=== PATIENT | female | born 1935 | race Caucasian/White ===

== ENCOUNTER 2021-04-04 06:21 | Observation (INO) | payer MEDICARE ==
[2021-03-29 13:33] LABS: BASOPHILS % (AUTO) 0.9 % (0.0-5.0); EOSINOPHILS % (AUTO) 5.5 % (0.0-8.0); HEMATOCRIT 32.2 % (36-48); LYMPHOCYTES % (AUTO) 24.4 % (21.0-51.0); MEAN CORPUSCULAR HEMOGLOBIN 28.2 pg (27.0-33.0); MEAN CORPUSCULAR HGB CONC 31.1 g/dL (32.0-36.0); MONOCYTES % (AUTO) 11.8 % (3.0-13.0); PLATELET COUNT (AUTO) 411 K/uL (130-400); RED BLOOD CELL COUNT(AUTO) 3.54 MIL/uL (4.00-5.50); RED CELL DISTRIBUTION WIDTH 15.1 % (11.0-15.5); WHITE BLOOD COUNT (AUTO) 6.9 K/uL (4.8-10.8)
[2021-03-29 13:42] LABS: CREATININE 0.6 mg/dL (0.5-1.5); POTASSIUM 4.4 mmol/L (3.5-5.1)
[2021-03-29 14:08] LABS: INR 1.04 (0.85-1.15); PROTHROMBIN TIME 11.3 SEC (9.6-11.6)
[2021-03-29 14:09] LABS: PARTIAL THROMBOPLASTIN TIME 28.9 SEC (26.3-35.5)
[2021-04-03 09:12] VITALS: BP 183/68
[2021-04-04] VITALS (24 sets, daily range): BP systolic 111–164; BP diastolic 40–94
[~2021-04-04] VITALS: Ht 158.8 cm; Wt 74.8 kg
[2021-04-04] MEDS: CEFAZOLIN SODIUM 1 GM VIAL IVP SCH ×3 (06:00→16:35)
[~2021-04-04 06:21] MED LIST: ATOR40TA71 PO; GABA-529 PO; HYDR12.54 PO; ROPIVICAINE 250MG+KETOROLAC 15MG+EPINEPHRINE 0.3+CLONIDINE 80 IV PRN
[2021-04-04] MEDS ORDERED: TRANEXAMIC ACID 1000MG/10ML ONE (06:51)
[2021-04-04] MEDS ORDERED: AEC81 PO (07:45)
[2021-04-04] MEDS: LACTATED RINGERS 1000ML 1,000 ML IV SCH ×6 (07:47→13:55)
[2021-04-04] MEDS ORDERED: HYDROCODONE/ACETAMINOPHEN 5/325 MG TAB PO PRN (08:00)
[2021-04-04] MEDS ORDERED: MORPHINE 4 MG SYG IVP PRN (08:00)
[2021-04-04] MEDS ORDERED: OXYCODONE HCL 5 MG TAB PO PRN (08:00)
[2021-04-04] MEDS: ACETAMINOPHEN 500 MG TABLET PO SCH ×3 (08:00→16:36)
[2021-04-04] MEDS ORDERED: ONDANSETRON 4MG INJ IVP PRN (08:00)
[2021-04-04] MEDS: 0.9%NACL 1000ML 1,000 ML IV SCH ×2 (08:00→17:25)
[2021-04-04] MEDS ORDERED: MIDAZOLAM HCL 1 MG/ML 2ML VIAL ONE ×2 (08:01→08:42)
[2021-04-04] MEDS ORDERED: KETAMINE 50MG/ML SYRINGE 50 MG/ML DISP.SYRIN IV ONE (08:29)
[2021-04-04] MEDS ORDERED: EPHEDRINE SULFATE 50 MG/ML AMPULE ONE (08:36)
[2021-04-04] MEDS: FAMOTIDINE 20MG TAB PO SCH ×2 (09:00→22:01)
[2021-04-04] MEDS: ASPIRIN 81 MG EC TAB PO SCH ×2 (09:00→22:01)
[2021-04-04] MEDS: POLYETHYLENE GLYCOL 3350 17 GM POWD.PACK PO SCH (09:00)
[2021-04-04] MEDS: HYDROCHLOROTHIAZIDE 25 MG TABLET PO SCH (09:00)
[2021-04-04] MEDS ORDERED: VANCOMYCIN 1G VIAL ONE (09:08)
[2021-04-04] MEDS ORDERED: ROPIVACAINE 0.5% 5MG/ML 30ML IJ ONE (10:32)
[2021-04-04] MEDS ORDERED: CEFAZOLIN SODIUM 1 GM VIAL IVP SCH (13:00)
[2021-04-04] MEDS: TRAMADOL HCL 50 MG TABLET PO SCH ×2 (13:10→17:37)
[2021-04-04] MEDS: GABAPENTIN 100 MG CAPSULE PO SCH (22:01)
[2021-04-04] MEDS: BALSAM PERU/CASTOR OIL 60 GM TUBE TP SCH (22:09)
[2021-04-05] MEDS: ACETAMINOPHEN 500 MG TABLET PO SCH ×3 (00:15→17:17)
[2021-04-05] MEDS: TRAMADOL HCL 50 MG TABLET PO SCH ×4 (00:15→17:17)
[2021-04-05] MEDS: CEFAZOLIN SODIUM 1 GM VIAL IVP SCH (00:15)
[2021-04-05] MEDS: 0.9%NACL 1000ML 1,000 ML IV SCH (02:23)
[2021-04-05 04:11] VITALS: BP 119/49
[2021-04-05 05:10] LABS: HEMATOCRIT 24.9 % (36-48); MEAN CORPUSCULAR HEMOGLOBIN 28.4 pg (27.0-33.0); MEAN CORPUSCULAR HGB CONC 31.3 g/dL (32.0-36.0); MEAN CORPUSCULAR VOLUME 90.5 fL (79-99); RED BLOOD CELL COUNT(AUTO) 2.75 MIL/uL (4.00-5.50); WHITE BLOOD COUNT (AUTO) 8.1 K/uL (4.8-10.8)
[2021-04-05 05:27] LABS: CREATININE 0.7 mg/dL (0.5-1.5); POTASSIUM 3.6 mmol/L (3.5-5.1)
[2021-04-05 07:30] VITALS: BP 123/47
[2021-04-05 11:00] VITALS: BP 133/94
[2021-04-05] MEDS: FAMOTIDINE 20MG TAB PO SCH ×2 (11:04→22:22)
[2021-04-05] MEDS: BALSAM PERU/CASTOR OIL 60 GM TUBE TP SCH ×3 (11:05→22:23)
[2021-04-05] MEDS: ASPIRIN 81 MG EC TAB PO SCH ×2 (11:05→22:22)
[2021-04-05] MEDS: POLYETHYLENE GLYCOL 3350 17 GM POWD.PACK PO SCH (11:05)
[2021-04-05] MEDS: HYDROCHLOROTHIAZIDE 25 MG TABLET PO SCH (11:41)
[2021-04-05 16:00] VITALS: BP 133/36
[2021-04-05 20:27] VITALS: BP 118/49
[2021-04-05] MEDS: GABAPENTIN 100 MG CAPSULE PO SCH (22:22)
[2021-04-06 00:02] VITALS: BP 133/46
[2021-04-06] MEDS: TRAMADOL HCL 50 MG TABLET PO SCH ×4 (00:19→10:49)
[2021-04-06 04:32] VITALS: BP 144/45
[2021-04-06 07:30] VITALS: BP 145/30
[2021-04-06] MEDS: ASPIRIN 81 MG EC TAB PO SCH (10:42)
[2021-04-06] MEDS: HYDROCHLOROTHIAZIDE 25 MG TABLET PO SCH (10:42)
[2021-04-06] MEDS: FAMOTIDINE 20MG TAB PO SCH (10:42)
[2021-04-06] MEDS: POLYETHYLENE GLYCOL 3350 17 GM POWD.PACK PO SCH (10:46)
[2021-04-06] MEDS: ACETAMINOPHEN 500 MG TABLET PO SCH ×3 (10:47→16:54)
[2021-04-06] MEDS: BALSAM PERU/CASTOR OIL 60 GM TUBE TP SCH ×2 (10:48→14:32)
[2021-04-06 11:00] VITALS: BP 118/33
[2021-04-07] MEDS ORDERED: BISACODYL 10 MG SUPP.RECT RC PRN (08:00)
== END 2021-04-06 17:30 | disposition home health service (06) ==
LOC: DAH 06:21 → DAHIP 06:22 → DAH 06:22 → INTOOBSV 06:22 → 3AH 12:02
PROVIDERS: ADMIT Orthopaedic Surgery; ATTEND Orthopaedic Surgery
DX: M16.12 Unilateral primary osteoarthritis, left hip (principal); Z20.822 Contact with and (suspected) exposure to COVID-19; L89.152 Pressure ulcer of sacral region, stage 2; I10 Essential (primary) hypertension; R32 Unspecified urinary incontinence; Z79.82 Long term (current) use of aspirin
CPT/HCPCS: 27130; 36415 ×2; 64447; 71045; 72170; 76942; 80048 ×2; 85025; 85027; 85610; 85730; 87070; 87076; 87205; 87635; 87641; 88304; 88311; 93005; 96361 ×3; 96374; 96375; 96376; 97039 ×3; 97116 ×4; 97161; 97530 ×3; A4215; A4221; A4222; A4606; A4649 ×5; A4663; A4930; A6212; C1776; C9803; G0378 ×3; J0171; J0690 ×3; J0735; J1885; J2250 ×2; J2270; J2405; J2795 ×2; J3370; J3490 ×3; J7030; J7120

== ENCOUNTER 2022-05-08 06:52 | Observation (INO) | payer MEDICARE ==
[2022-05-04 13:18] LABS: BASOPHILS % (AUTO) 0.6 % (0.0-5.0); EOSINOPHILS % (AUTO) 3.1 % (0.0-8.0); HEMATOCRIT 36.2 % (36-48); MEAN CORPUSCULAR HEMOGLOBIN 29.5 pg (27.0-33.0); MEAN CORPUSCULAR HGB CONC 31.5 g/dL (32.0-36.0); MEAN CORPUSCULAR VOLUME 93.8 fL (79-99); NEUTROPHILS % (AUTO) 65.6 % (40.0-77.0); PLATELET COUNT (AUTO) 273 K/uL (130-400); RED BLOOD CELL COUNT(AUTO) 3.86 MIL/uL (4.00-5.50); RED CELL DISTRIBUTION WIDTH 14.9 % (11.0-15.5); WHITE BLOOD COUNT (AUTO) 8.1 K/uL (4.8-10.8)
[2022-05-04 13:37] LABS: INR 1.01 (0.85-1.15)
[2022-05-04 13:39] LABS: PARTIAL THROMBOPLASTIN TIME 31.8 SEC (26.3-35.5)
[2022-05-04 13:41] LABS: POTASSIUM 3.6 mmol/L (3.5-5.1)
[2022-05-04 13:42] LABS: ALBUMIN 3.3 g/dL (3.5-5.0); CREATININE 0.8 mg/dL (0.5-1.5)
[2022-05-07 10:58] VITALS: BP 216/70
[2022-05-08] VITALS (26 sets, daily range): BP systolic 101–188; BP diastolic 14–118
[~2022-05-08] VITALS: Ht 160 cm; Wt 77.1 kg
[2022-05-08] MEDS: TRANEXAMIC ACID 1000MG/10ML IJ SCH ×2 (06:00→09:29)
[2022-05-08] MEDS: CEFAZOLIN SODIUM 1 GM VIAL IVP SCH ×4 (06:00→23:46)
[~2022-05-08 06:52] MED LIST changes: -ATOR40TA71 PO; +FERR-72 PO; -GABA-529 PO; +IPRA3AMP24 IH; +ROPIVACAINE 0.5% 5MG/ML 30ML IJ ONE; -ROPIVICAINE 250MG+KETOROLAC 15MG+EPINEPHRINE 0.3+CLONIDINE 80 IV PRN; +TRANEXAMIC ACID 1000MG/10ML ONE
[2022-05-08] MEDS ORDERED: ROPIVACAINE 0.5% 5MG/ML 30ML IJ ONE (07:32)
[2022-05-08] MEDS: LACTATED RINGERS 1000ML 1,000 ML IV SCH ×3 (07:39→13:09)
[2022-05-08] MEDS ORDERED: FENTANYL CITRATE PF 50 MCG/1 ML 2ML VIAL ONE (08:04)
[2022-05-08] MEDS ORDERED: GLYCOPYRROLATE 1 MG/5 ML SYRINGE ONE (08:04)
[2022-05-08] MEDS ORDERED: PROPOFOL 10 MG/ML 20ML VIAL IV ONE (08:04)
[2022-05-08] MEDS ORDERED: ROCURONIUM 10MG/1ML SYR 10 MG/ML ML ONE ×2 (08:05→10:01)
[2022-05-08] MEDS ORDERED: LIDOCAINE PF 100MG/5ML (2%) SYRINGE 5ML ONE (08:05)
[2022-05-08] MEDS ORDERED: DEXAMETHASONE SOD PHOSPHATE 4 MG/ML 1ML VIAL ONE (08:27)
[2022-05-08] MEDS ORDERED: DEXAMETHASONE SOD PHOSPHATE 10MG/ML 1ML VIAL ONE ×2 (10:21→10:23)
[2022-05-08] MEDS ORDERED: KETOROLAC 30MG VIAL (30MG/ML) ONE ×2 (10:21→10:22)
[2022-05-08] MEDS ORDERED: ONDANSETRON 4MG INJ ONE (10:21)
[2022-05-08] MEDS ORDERED: KCL 20 MEQ ERTAB PO PRN (10:30)
[2022-05-08] MEDS ORDERED: ONDANSETRON 4MG INJ IVP PRN (10:30)
[2022-05-08] MEDS ORDERED: LIDOCAINE HCL-MPF 1% 2ML VIAL IV PRN (10:30)
[2022-05-08] MEDS ORDERED: IPRATROPIUM/ALBUTEROL SULFATE 3 ML SOLUTION IH PRN (10:30)
[2022-05-08] MEDS ORDERED: POTASSIUM CHLORIDE 20MEQ/100ML 100 ML IV PRN (10:30)
[2022-05-08] MEDS ORDERED: POTASSIUM CHLORIDE 10% ELIXIR 20 MEQ/15 ML UDCUP PO PRN (10:30)
[2022-05-08] MEDS ORDERED: FERROUS FUMARATE 324 MG TABLET PO PRN (10:30)
[2022-05-08] MEDS ORDERED: MORPHINE 4 MG SYG IVP PRN (10:30)
[2022-05-08] MEDS ORDERED: HYDROCODONE/ACETAMINOPHEN 5/325 MG TAB PO PRN (10:30)
[2022-05-08] MEDS: 0.9%NACL 1000ML 1,000 ML IV SCH ×2 (10:30→20:15)
[2022-05-08] MEDS ORDERED: HYDROCODONE/ACETAMINOPHEN 10/325 MG TAB PO PRN (10:30)
[2022-05-08] MEDS: ACETAMINOPHEN 500 MG TABLET PO SCH ×2 (10:30→19:03)
[2022-05-08] MEDS ORDERED: NEOSTIGMINE 5MG/5ML SYR IV ONE (11:21)
[2022-05-08] MEDS: TRAMADOL HCL 50 MG TABLET PO SCH ×3 (12:00→23:24)
[2022-05-08] MEDS ORDERED: HYDRALAZINE 20MG/ML VIAL ONE (12:38)
[2022-05-08] MEDS: FAMOTIDINE 20MG TAB PO SCH (20:14)
[2022-05-09] VITALS: BP 142/53
[2022-05-09] MEDS: ACETAMINOPHEN 500 MG TABLET PO SCH ×3 (02:14→18:30)
[2022-05-09 04:00] VITALS: BP 121/62
[2022-05-09] MEDS: TRAMADOL HCL 50 MG TABLET PO SCH ×4 (04:13→23:03)
[2022-05-09] MEDS: 0.9%NACL 1000ML 1,000 ML IV SCH (04:26)
[2022-05-09 05:15] LABS: HEMATOCRIT 27.7 % (36-48); MEAN CORPUSCULAR HEMOGLOBIN 30.1 pg (27.0-33.0); MEAN CORPUSCULAR HGB CONC 32.5 g/dL (32.0-36.0); MEAN CORPUSCULAR VOLUME 92.6 fL (79-99); RED BLOOD CELL COUNT(AUTO) 2.99 MIL/uL (4.00-5.50); RED CELL DISTRIBUTION WIDTH 14.8 % (11.0-15.5); WHITE BLOOD COUNT (AUTO) 11.6 K/uL (4.8-10.8)
[2022-05-09 05:27] LABS: CREATININE 0.7 mg/dL (0.5-1.5); POTASSIUM 3.5 mmol/L (3.5-5.1)
[2022-05-09 07:57] VITALS: BP 152/63
[2022-05-09] MEDS: POLYETHYLENE GLYCOL 3350 17 GM POWD.PACK PO SCH (09:58)
[2022-05-09] MEDS: FAMOTIDINE 20MG TAB PO SCH ×2 (09:58→23:03)
[2022-05-09] MEDS: ENOXAPARIN SODIUM 30 MG/0.3 ML SQ SCH (10:02)
[2022-05-09] MEDS: HYDROCHLOROTHIAZIDE 25 MG TABLET PO SCH (10:02)
[2022-05-09 11:13] VITALS: BP 127/50
[2022-05-09 16:55] VITALS: BP 121/62
[2022-05-09 20:26] VITALS: BP 161/64
[2022-05-10 00:19] VITALS: BP 135/86
[2022-05-10] MEDS: ACETAMINOPHEN 500 MG TABLET PO SCH ×2 (03:14→10:27)
[2022-05-10 03:44] VITALS: BP 128/57
[2022-05-10] MEDS: TRAMADOL HCL 50 MG TABLET PO SCH ×2 (06:31→16:35)
[2022-05-10 07:58] VITALS: BP 136/53
[2022-05-10] MEDS: POLYETHYLENE GLYCOL 3350 17 GM POWD.PACK PO SCH (09:46)
[2022-05-10] MEDS: ENOXAPARIN SODIUM 30 MG/0.3 ML SQ SCH (09:46)
[2022-05-10] MEDS: FAMOTIDINE 20MG TAB PO SCH (09:46)
[2022-05-10] MEDS: HYDROCHLOROTHIAZIDE 25 MG TABLET PO SCH (09:46)
[2022-05-10 11:18] VITALS: BP 123/55
[2022-05-11] MEDS ORDERED: BISACODYL 10 MG SUPP.RECT RC PRN (10:30)
== END 2022-05-10 17:15 | disposition home or self-care (01) ==
LOC: DAH 06:52 → DAHIP 06:53 → 4DH 13:19
PROVIDERS: ADMIT Orthopaedic Surgery; ATTEND Orthopaedic Surgery
DX: M16.11 Unilateral primary osteoarthritis, right hip (principal); Z20.822 Contact with and (suspected) exposure to COVID-19; M24.551 Contracture, right hip; I10 Essential (primary) hypertension; Z79.899 Other long term (current) drug therapy; Z79.82 Long term (current) use of aspirin; Z98.890 Other specified postprocedural states
CPT/HCPCS: 80053; 85025; 85610; 85730; 87426; 36415 ×2; 93005; 27130; 96374; 96376; 76942; 64450; 73502; 94664; 97039 ×4; 96372 ×2; 80048; 85027; 97161; 97116 ×4; 97530 ×2; J1100; G0378 ×50; A4663; J7030; J7120 ×2; A4606; A4649 ×3; A4600; J3010; J0690 ×3; J3490 ×3; J2710; J2001; J0360; J2704; J2405; J1885 ×2; J2795; G0168; C1776; A6255; A5120 ×2; A4215; A4223; A4222; A4221; J1650 ×2

== ENCOUNTER → 2023-04-29 | Outpatient (CLI) | payer MEDICARE | END | disposition home or self-care (01) | LOC: RAH 07:32 | PROVIDERS: ATTEND Orthopaedic Surgery | DX: C76.51 Malignant neoplasm of right lower limb (principal); M25.851 Other specified joint disorders, right hip | CPT/HCPCS: 10005; 76942; 88305 ==

== ENCOUNTER 2024-07-14 09:34 | Inpatient (IN) | payer MEDICARE ==
[2024-07-14] VITALS (12 sets, daily range): BP systolic 100–128; BP diastolic 52–65; PULSE 40–88; RESP 16–32; TEMP 97.5–98.7; O2SAT 93–98
[~2024-07-14] VITALS: Ht 157.5 cm; Wt 79.5 kg
[~2024-07-14 09:34] MED LIST changes: +AEC81 PO; +ALBUHFA IH; -FERR-72 PO; +FLUT1DIS IH; +FURO40TA7 PO; -HYDR12.54 PO; -IPRA3AMP24 IH; +LISI2.5T13 PO; +POTA-202 PO; +PRED20B PO; -ROPIVACAINE 0.5% 5MG/ML 30ML IJ ONE; -TRANEXAMIC ACID 1000MG/10ML ONE
--- NOTE | 2024-07-14 09:44 | NUR ---
PT PLACED IN MY ED ROOM 20 UPON ARRIVAL TO ED. IN FOR SOB/DYSPNEA >3 DAYS
[2024-07-14] MEDS: Solu-medROL 125MG VIAL IVP ONE (10:07)
[2024-07-14 10:08] LABS: ABG OXYGEN SATURATION 72.8 % (94.0-98.0); BASE EXCESS,VENOUS BLOOD GAS 0.2 (-2.0-3.0); HCO3,VENOUS BLOOD GAS 28.8 (22.0-29.0); PCO2,VENOUS BLOOD GAS 64 (38-54); PH,VENOUS BLOOD GAS 7.271 (7.320-7.430); PO2,VENOUS BLOOD GAS 44.3 mmHg (23.0-48.0); VENT MODE, BG NC (ROOM AIR)
[2024-07-14 10:18] LABS: BASOPHILS # (AUTO) 0.04 K/uL (0.00-0.20); BASOPHILS % (AUTO) 0.5 % (0.0-5.0); EOSINOPHILS # (AUTO) 0.01 K/uL (0.00-0.70); EOSINOPHILS % (AUTO) 0.1 % (0.0-8.0); HEMATOCRIT 29.8 % (36-48); LYMPHOCYTES # (AUTO) 0.6 K/uL (1.0-4.8); LYMPHOCYTES % (AUTO) 7.2 % (21.0-51.0); MEAN CORPUSCULAR HEMOGLOBIN 25.9 pg (27.0-33.0); MEAN CORPUSCULAR HGB CONC 30.5 g/dL (32.0-36.0); MEAN CORPUSCULAR VOLUME 84.9 fL (79-99); MONOCYTES # (AUTO) 0.5 K/uL (0.1-1.0); MONOCYTES % (AUTO) 5.5 % (3.0-13.0); NEUTROPHILS # (AUTO) 7.5 K/uL (1.8-7.7); NEUTROPHILS % (AUTO) 85.6 % (40.0-77.0); PLATELET COUNT (AUTO) 300 K/uL (130-400); RED BLOOD CELL COUNT(AUTO) 3.51 MIL/uL (4.00-5.50); RED CELL DISTRIBUTION WIDTH 18.8 % (11.0-15.5); WHITE BLOOD COUNT (AUTO) 8.8 K/uL (4.8-10.8)
--- NOTE | 2024-07-14 10:20 | EKG ---
[facility] Test Date: 2024-07-14 Test Time: 09:40:43 Pat Name: CHUYITA ARANDA Department: EDH Room: 229 Gender: F Machine Fur Cleaner: [id number] : [id number] Requested By: BHARATHI CASTANEDA Order Number: [id number] Reading MD: Victorino Chambers Measurements Intervals Baker Rate: 102 P: 118 OK: 172 QRS: -52 QRSD: 112 T: 92 QT: 352 QTc: 459 Interpretive Statements Sinus tachycardia with irregular rate Left anterior fascicular block LVH with secondary repolarization abnormality Electronically Signed On 07-14-2024 17:26:05 AXLE INSPECTOR by Victorino Chambers Please click the below link to view image of tracing.
[2024-07-14 10:22] LABS: CREATININE 0.8 mg/dL (0.5-1.0); POTASSIUM 4.2 mmol/L (3.5-5.1)
[2024-07-14] MEDS: IpraTROPium/alBUTERol SULFATE 3 ML SOLUTION IH ONE (10:22)
--- NOTE | 2024-07-14 10:33 | NUR ---
BIPAP SETTINGS: I/E 06/26 RATE 16 FIO2 40% PT PLACED BY SHELTERED WORKSHOP WORKER
--- NOTE | 2024-07-14 10:56 | ERN ---
ED Note History of Present Illness Stated Complaint: RESPIRATORY DISTRESS Chief Complaint: Dyspnea/Respdistress Time Seen by MD: 09:49 Dictation: This is a 88-year-old female with a past medical history of hypertension, anemia, uterine prolapse, COPD who was brought to the ER by the EMS with the complaints of productive cough, shortness of breath, lightheadedness since 3:00 a.m. in the morning. She states that she has started experiencing flushing, difficulty in breathing, increased frequency of productive cough this morning. She notes experiencing several similar symptoms in the past. She is a known chronic ex-smoker, and is currently using Wixela air pump at home for shortness of breath. She also notes getting a blood transfusion at [facility] for anemia in the past month. She denies headache, nausea, vomiting, chest pain, palpitations, abdominal pain, constipation/diarrhea, burning sensation when urinating or increased frequency of urination. Allergies: Coded Allergies: No Known Drug Allergies (Verified Allergy, Unknown, 03/30/21) Home Meds Active Scripts Albuterol Sulfate (Ventolin Hfa/Proventil Hfa/Proair Hfa) 90 Mcg Puff, 90 MCG IH Q4HPRN PRN for SHORTNESS OF BREATH/WHEEZING, #2 INHALER Prov:MARCELA BOONE MD 04/09/24 Fluticasone/Salmeterol (Advair 100-50 Diskus) 100 Mcg-50 Mcg/Dose Blst.w.dev, 1 EACH IH BID, #1 DISK 1 Refill Prov:MARCELA BOONE MD 04/09/24 Prednisone (Deltasone/Orasone [Bulk]) 20 Mg Tab, 20 MG PO BID, #11 TAB 0 Refills Prov:MARCELA BOONE MD 04/09/24 Aspirin (ASPIRIN 81 MG ECTAB) 81 Mg Ectab, 81 MG PO DAILY, #30 TAB.EC 0 Refills Prov:MARCELA BOONE MD 04/09/24 Reported Medications Potassium Chloride (Potassium Chloride) 20 Meq Packet, 1 PACKET PO DAILY PRN for TO BE TAKEN WITH LASIX for 30 Days, #30 PACKET 0 Refills 07/14/24 Furosemide (Lasix 20Mg Tab) 20 Mg Tablet, 1 TAB PO DAILY PRN for NEEDED FOR SWELLING AND SOB for 30 Days, #30 TAB 0 Refills 07/14/24 Lisinopril (Lisinopril) 10 Mg Tablet, 1 TAB PO DAILY for 30 Days, #30 TAB 0 Refills 07/14/24 Potassium Chloride (Potassium Chloride) 20 Meq Tab.er.prt, 20 MEQ PO DAILY 04/05/24 Lisinopril (Lisinopril) 2.5 Mg Tablet, 2.5 MG PO DAILY, TAB 04/05/24 Furosemide (Lasix 40Mg Tab) 40 Mg Tablet, 40 MG PO DAILY, TAB 04/05/24 Past Medical History Past Medical History: Cancer, COPD, Hypertension Surgical History: Other Surgical History Other: HIP SX Social History: Other RN Note Reviewed/Agreed w/PFSH: Yes Review of System Dictation CONSTITUTIONAL: No chills, no fever, no weakness, no diaphoresis, no malaise. HEAD/FACE: No signs of trauma. EENT: No eye pain, no blurred vision, no tearing, no double vision, no ear pain, no ear discharge, no nose pain, no nasal congestion, no throat pain, no throat swelling, no mouth pain. RESPIRATORY: Productive cough, SOB, no orthopnea, no stridor, CARDIOVASCULAR: No chest pain, no edema, no palpitations, no syncope. GASTROINTESTINAL/ABDOMINAL: No abdominal pain, no constipation, no diarrhea, no nausea, no vomiting. GENITOURINARY: No abnormal discharge, no dysuria, no frequent urination, no hematuria. No complaints of pain in the genitals. NEUROLOGICAL/PSYCH: No anxiety, not depressed, no emotional problem, no headache, no numbness, no pre-existing deficit, no history of seizures, no tremors, no weakness. HEMATOLOGIC/LYMPHATIC: Chronic anemia, All Systems Negative, Except as Noted. Initial Vital Sign VS Vital Signs Date Time Temp Pulse Resp B/P (MAP) Pulse Ox O2 Delivery O2 Flow Rate FiO2 07/14/24 09:36 99.0 110 28 177/67 83 Room Air 07/14/24 10:00 4 36 Physical Exam Dictation Physical Exam Dictation VITAL SIGNS: Reviewed. GENERAL APPEARANCE: Alert, oriented x3, in acute respiratory distress, obese. HEAD AND FACE: Non-traumatic. NOSE: No discharge, no bleeding. OROPHARYNX: Pharynx clear, no erythema. Tonsils no exudates, no abscesses noted. Mucous membrane moist. NECK: Supple, non-tender, no thyromegaly, no masses, no JVD, no bruits. BREAST: Deferred. CHEST: No tenderness, no crepitus, no paradoxical movement, no retractions. LUNGS: Clear, bilateral crackles, symmetric, no rales no stridor HEART: Regular rate, regular rhythm, no murmur, no gallops. VASCULAR: No peripheral edema. ABDOMEN: Soft, positive bowel sounds, nondistended, no guarding, nontender, no rebound, no Perales's sign, RECTAL: Deferred. GENITAL: Deferred. NEUROLOGICAL: Normal speech, gross motor function intact, gross sensory function intact. MUSCULOSKELETAL: Neck nontender, full range of motion, back nontender, full range of motion. EXTREMITIES: Nontender, full range of motion. SKIN: Color pink, dry, no turgor, no rash, no lacerations, no abrasions, no contusions. LYMPHATICS: Deferred. Results (Laboratory/Radiology) Laboratory/Radiology Laboratory Tests Test 07/14/24 10:03 07/14/24 10:06 07/14/24 11:59 07/14/24 13:05 White Blood Count 8.8 K/uL (4.8-10.8) Red Blood Count 3.51 MIL/uL (4.00-5.50) L Hemoglobin 9.1 g/dL (12.0-16.0) L Hematocrit 29.8 % (36-48) L Mean Corpuscular Volume 84.9 fL (79-99) Mean Corpuscular Hemoglobin 25.9 pg (27.0-33.0) L Mean Corpuscular Hemoglobin Concent 30.5 g/dL (32.0-36.0) L Red Cell Distribution Width 18.8 % (11.0-15.5) H Platelet Count 300 K/uL (130-400) Mean Platelet Volume 10.1 fL (7.5-10.5) Immature Granulocyte % (Auto) 1.1 % (0-1) H Neutrophils (%) (Auto) 85.6 % (40.0-77.0) H Lymphocytes (%) (Auto) 7.2 % (21.0-51.0) L Monocytes (%) (Auto) 5.5 % (3.0-13.0) Eosinophils (%) (Auto) 0.1 % (0.0-8.0) Basophils (%) (Auto) 0.5 % (0.0-5.0) Neutrophils # (Auto) 7.5 K/uL (1.8-7.7) Lymphocytes # (Auto) 0.6 K/uL (1.0-4.8) L Monocytes # (Auto) 0.5 K/uL (0.1-1.0) Eosinophils # (Auto) 0.01 K/uL (0.00-0.70) Basophils # (Auto) 0.04 K/uL (0.00-0.20) Absolute Immature Granulocyte (auto 0.10 K/uL (0-1) Nucleated Red Blood Cells 0.0 % (0.0-0.19) White Cell Morphology Comment See comments Red Blood Cell Morphology See comments Erythrocyte Sedimentation Rate 105 MM/HR (0-30) H Prothrombin Time 11.0 SEC (9.6-11.6) Prothromb Time International Ratio 0.98 (0.85-1.15) Activated Partial Thromboplast Time 30.5 SEC (26.3-35.5) Sodium Level 135 mmol/L (136-145) L Potassium Level 4.2 mmol/L (3.5-5.1) Chloride Level 102 mmol/L (101-111) Carbon Dioxide Level 31 mmol/L (21-32) Blood Urea Nitrogen 21 mg/dL (7-18) H Creatinine 0.8 mg/dL (0.5-1.0) Glomerular Filtration Rate Calc 71 mL/min (>90) Random Glucose 150 mg/dL (70-105) H Total Calcium 8.9 mg/dL (8.5-10.1) Magnesium Level 2.20 mg/dL (1.80-2.40) Total Bilirubin 0.2 mg/dL (0.2-1.0) Direct Bilirubin 0.1 mg/dL (0.0-0.3) Aspartate Amino Transf (AST/SGOT) 35 U/L (10-37) Alanine Aminotransferase (ALT/SGPT) 27 U/L (12-78) Alkaline Phosphatase 118 U/L (50-136) Troponin I High Sensitivity 106 ng/L (4-50) *H C-Reactive Protein, Quantitative 32.00 mg/L (0.5-3.0) H B-Type Natriuretic Peptide 674 pg/mL (0-100) H Total Protein 7.1 g/dL (6.0-8.3) Albumin 2.9 g/dL (3.5-5.0) L Procalcitonin 0.15 ng/mL (0.05-0.5) Blood Gas Specimen Type Venous Arterial Arterial Blood Oxygen Saturation 72.8 % (94.0-98.0) L 97.0 % (94.0-98.0) Venous Blood pH 7.271 (7.320-7.430) Venous Blood pCO2 at Patient Temp 64 (38-54) *H Venous Blood pO2 at Patient Temp 44.3 mmHg (23.0-48.0) Venous Blood HCO3 28.8 (22.0-29.0) Venous Blood Base Excess 0.2 (-2.0-3.0) Blood Gas Temperature 37.0 CELSIUS (35.5-37.0) 37.0 CELSIUS (35.5-37.0) Blood Gas Flow-by 4.00 L/min (0.00-15.00) Blood Gas Vent Mode NC (ROOM AIR) BIPAP 12-6 (ROOM AIR) FiO2 36.0 % 40.0 % Blood Gas Specimen Comment DR.NATHAN CARLOS MANUEL ROSSI,DAPHNE-MICHELLE Arterial Blood pH 7.285 (7.350-7.450) Arterial Blood Partial Pressure CO2 55 mmHg (32-45) H Arterial Blood Partial Pressure O2 101.3 mmHg (83.0-108.0) Arterial Blood HCO3 25.6 mmol/L (21.0-28.0) Arterial Blood Base Excess -1.5 mmol/L (-2.0-3.0) Hemoglobin (Blood Gas) 9.8 g/dL (12.0-16.0) L Sodium (Blood Gas) 133 MMOL/L (136-145) L Bedside Potassium (Blood Gas) 4.5 MMOL/L (3.4-4.5) Bedside Chloride (Blood Gas) 102 MMOL/L (98-107) Bedside Glucose (Blood Gas) 123 MG/DL (65-95) H Bedside Ionized Calcium (Blood Gas) 1.15 MMOL/L (1.15-1.33) Bedside Lactic Acid (Blood Gas) 0.74 MMOL/L (0.36-0.75) Blood Gas Respiration Rate 16.0 min. Lactic Acid Level 1.2 mmol/L (0.8-2.5) Influenza Type A Antigen Negative For Type A Influenza Type B Antigen Negative For Type B SARS-CoV-2, RNA, NAAT NEGATIVE SARS CoV-2 EKG Comment: Time reviewed: 9:40 a.m. EKG number; 1 Rate and rhythm: Sinus tachycardia with multiple PACs [place]: -52 Morphology: Left anterior fascicular block and LVH DE interval: normal QT interval: normal ST/Twaves: Nonspecific STT wave changes Impression: Sinus tachycardia with multiple PACs, no evidence of STEMI Comparison EKG: none, known history of AFib EKG INTERPRETATION by Dr. Alfred Verdugo X-RAY Comment: PROCEDURE: CXR1VW - CHEST 1VW Exam Type: CHEST 1VW Clinical Information: sob Comparison: None Findings: There is cardiomegaly. There is prominence of the vascular markings consistent with pulmonary venous congestion. IMPRESSION: Findings consistent with pulmonary venous congestion. ED Course ED Course Orders Procedure Category Date Status Time 12 Lead Ekg Tracing- EKG 07/14/24 Complete Technical 09:46 Chest 1vw RAD 07/14/24 Resulted 09:46 Troponin I High LAB 07/14/24 Complete Sensitivity 09:46 B-Type Natriuretic LAB 07/14/24 Complete Peptide 09:46 Cbc With Differential LAB 07/14/24 Complete 09:46 Basic Metabolic Panel LAB 07/14/24 Complete 09:46 Methylprednisolone PHA 07/14/24 Complete Succ 125mg (Solu-Medr 10:00 Venous Blood Gas RT 07/14/24 Transmitted 09:46 Urinalysis Profile LAB 07/14/24 Logged 09:49 Ipratropium/Albuterol PHA 07/14/24 Complete Neb (Duoneb) 10:00 Venous Blood Gas LAB 07/14/24 Complete 10:06 Ceftriaxone 1g Vial PHA 07/14/24 Complete (Rocephine 1g Inj) 12:00 Vancomycin Protocol PHA 07/14/24 In Process (Vancomycin Protocol 12:00 Cefepime Hcl 2 Gm PHA 07/14/24 In Process Vial (Maxipime 2 Gm Vi 12:00 Doxycycline 100mg+Ns PHA 07/14/24 In Process 250ml (Doxycycline 13:00 Keep Patient Npo CPOE 07/14/24 Transmitted 11:40 Admit Orders ADM 07/14/24 Transmitted 11:41 Critcal Care Consult CONPHYSVC 07/14/24 Transmitted 11:41 Budesonide 0.5 Mg/2 PHA 07/14/24 Complete Ml Inh (Pulmicort 0. 12:00 Pantoprazole 40mg Inj PHA 07/14/24 In Process (Protonix 40mg Inj 12:00 Ipratropium/Albuterol PHA 07/14/24 In Process Neb (Duoneb) 12:00 Influenza Type A & B, LAB 07/14/24 Complete Rapid 11:42 Covid Rna Naat LAB 07/14/24 Complete 11:42 Methylprednisolone PHA 07/14/24 In Process Succ 40mg (Solu-Medro 15:00 Pt And Ptt LAB 07/14/24 Complete 11:43 Hepatic Function Panel LAB 07/14/24 Complete 11:43 Erythrocyte LAB 07/14/24 Complete Sedimentation Rate 11:43 Crp Quantitative LAB 07/14/24 Complete 11:43 Procalcitonin LAB 07/14/24 Complete 11:43 Cardiology Consult CONPHYSVC 07/14/24 Transmitted 11:45 *Nursing CPOE 07/14/24 Transmitted Communication: 11:45 Bipap Settings RT 07/14/24 Transmitted 11:46 Ondansetron 4mg Inj PHA 07/14/24 In Process (Zofran 4mg Inj) 12:00 Acetaminophen PHA 07/14/24 Complete (Acetaminophen) 12:00 Fall Precautions CPOE 07/14/24 Transmitted 11:46 Aspiration Precautions CPOE 07/14/24 Transmitted 11:46 Elevate Hob At 30 CPOE 07/14/24 Transmitted Degrees 11:46 Lactic Acid LAB 07/14/24 Complete 11:47 Arterial Blood Gas + RT 07/14/24 Transmitted 11:47 Blood Cult ROJELIO 07/14/24 In Process 11:47 Respiratory Cult ROJELIO 07/14/24 Logged W/Gram Stain 11:48 Mycoplasma Ab Igg & LAB 07/14/24 In Process IGM 11:48 Legionella Pneumo Ag ROJELIO 07/14/24 Logged Urine 11:48 Vancomycin 1.75 PHA 07/14/24 In Process Gm/250 Ml Bag 15:00 Magnesium 2gm Premix PHA 07/14/24 In Process 50ml (Magnesium 2gm 12:00 Initiate Po SMITH 07/14/24 In Process Hypokalemia Protoc 11:50 Potassium Chloride PHA 07/14/24 In Process 20meq/100ml ([place] 12:00 Potassium Chl 10% PHA 07/14/24 In Process Elixir 20meq (Kcl 10% 12:00 Potassium Chloride PHA 07/14/24 In Process 20meq Er (K-Dur/Klor- 12:00 Notify Physician If CPOE 07/14/24 Transmitted There Is 11:50 Notify Md On The Next CPOE 07/14/24 Transmitted 11:50 Notify Md On The CPOE 07/14/24 Transmitted Next(Cont.) 11:50 Vancomycin 1.25 PHA 07/15/24 In Process Gm/250 Ml Bag 15:00 Vancomycin Trough LAB 07/17/24 Verified 14:00 Arterial Blood Gas LAB 07/14/24 Complete Arterial + 11:59 Furosemide 20mg Vial PHA 07/14/24 In Process (Lasix 20mg Vial) 12:30 Ct Chest W/O Contrast CT 07/14/24 Logged 12:17 Code Status CODE 07/14/24 Transmitted 12:17 Magnesium LAB 07/14/24 Complete 12:18 Lisinopril 10mg PHA 07/15/24 In Process (Prinivil 10mg) 09:00 Initiate SMITH 07/14/24 In Process Hyperglycemia Protoco 12:43 Insulin Regular, PHA 07/14/24 In Process Human 3ml (Humulin R 16:30 Thiamine Hcl (Vitamin PHA 07/15/24 In Process B-1) 09:00 Enoxaparin Sodium 30 PHA 07/15/24 In Process Mg/0.3 Ml (Lovenox) 09:00 Echo 2-D Complete ECHO 07/14/24 Logged 12:43 Daily Weights CPOE 07/14/24 Transmitted 12:44 Strict I&O CPOE 07/14/24 Transmitted 12:44 *Nursing CPOE 07/14/24 Transmitted Communication: 12:44 Cbc With Differential LAB 07/15/24 Verified 04:00 Comprehensive LAB 07/15/24 Verified Metabolic Panel 04:00 Magnesium LAB 07/15/24 Verified 04:00 Thyroid Stimulating LAB 07/15/24 Verified Hormone 04:00 Hemoglobin A1c LAB 07/15/24 Verified 04:00 Ferritin LAB 07/15/24 Verified 04:00 Iron Panel With %Sat LAB 07/15/24 Verified 04:00 Vitamin B12 Serum LAB 07/15/24 Verified 04:00 Folic Acid Serum LAB 07/15/24 Verified 04:00 Acetaminophen PHA 07/14/24 In Process (Acetaminophen) 13:00 Budesonide 0.5 Mg/2 PHA 07/14/24 In Process Ml Inh (Pulmicort 0. 21:00 Chest 1vw RAD 07/15/24 Verified 06:00 Basic Metabolic Panel LAB 07/14/24 Logged 19:00 Collect Labs With CPOE 07/14/24 Transmitted Pedi Tube 13:34 Pt Eval And Treat PT 07/15/24 Verified 07:00 Case Management CM 07/14/24 Transmitted Evaluation 13:34 Reticulocyte Count LAB 07/15/24 Verified Automated 04:[address] 07/14/24 Transmitted Order 13:58 *Nursing CPOE 07/14/24 Transmitted Communication: 13:59 Current Medications Medications (Trade) Dose Ordered Sig/Parker Route PRN Reason Start Time Stop Time Status Last Admin Dose Admin Albuterol (DUOneb) 1 UDVIAL ONCE ONCE IH 07/14/24 10:00 07/14/24 10:01 DC 07/14/24 10:22 Methylprednisolone Sodium Succinate (Solu-medROL 125MG) 125 mg ONCE ONCE IVP 07/14/24 10:00 07/14/24 10:01 DC 07/14/24 10:07 Vital Signs Date Time Temp Pulse Resp B/P (MAP) Pulse Ox O2 Delivery O2 Flow Rate FiO2 07/14/24 12:02 40 27 35 07/14/24 12:00 74 30 07/14/24 10:30 83 32 40 07/14/24 10:00 99 43 147/58 94 Nasal Cannula* 4 36 07/14/24 09:55 88 28 07/14/24 09:36 99.0 110 28 177/67 83 Room Air Medical Decision Making MDM MDM Potential differential diagnoses include: COPD exacerbation Pneumonia SIRS Assessment: We will order CBC to to rule any anemia, infections and to evaluate the overall health of the patient. CMP was ordered in order to assess various electrolytes, kidney function, liver function ,protein levels and blood glucose levels, I will re-evaluate the patient after treatment and diagnostic exams have returned to determine whether they require further testing, can be safely discharged home, or need admission for further treatment and evaluation. Given the social determinants of health affecting care, including literacy, access to medical care, prescription drug management, and [id number] drugs, I will ensure that treatment plans are tailored accordingly. Revaluation : She is alert awake and oriented. Labs hemoglobin 9.1, sodium 135, BUN 21, troponin 106. Chest x-ray resulted in pulmonary venous congestion. Venous blood gas resulted in pH of 7.27, pCO2 64, PO2 44.3. Disposition: Patient is being admitted for further evaluation and treatment in view of hypoxic hypercapnic respiratory failure DX & DISP Disposition: Inpatient Departure Impression: Primary Impression: Acute exacerbation of chronic obstructive pulmonary disease (COPD) Condition: Stable Referrals: CHARITY LOGAN MD (PCP) Attestation by Dr. Arian Young personally interviewed and examined this patient upon arrival in the emergency department. She reports three days of gradual worsening with dramatic worsening in the last several hours. EMS noted an O2 saturation of 60% on arrival at the home, she was treated with albuterol and oxygen. She reports some mild improvement after that treatment but a room air saturation remains 88%. Exam shows a chronically ill frail woman who has obvious significant respiratory distress with increased work of breathing. She is alert and appropriate. She denies chest pain or swelling of the legs. She has a productive cough. She is unaware of fever. Lungs show markedly decreased airflow throughout with labored breathing tachypnea and use of accessory muscles. Breath sounds are very quiet with expiratory wheezes and some fine dry crackles. No murmur is auscultated. The belly is soft. There was no pedal edema. The patient is moving all four extremities and answering questions appropriately. Skin is pale and dusky of oxygen with capillary refill of 3 seconds Initial assessment was COPD exacerbation with hypoxic respiratory insufficiency. Other diagnoses considered included pneumonia, congestive heart failure Media treatment included Solu-Medrol, DuoNeb, and assessment with the arterial blood gas, x-ray and lab. The arterial blood gas suggested hypercarbic respiratory failure in addition to the hypoxemia we are aware of from the saturation. Chest x-ray shows no evidence of a lobar pneumonia although there was increased marking at the bases. Based upon the arterial blood gas the patient was started on BiPAP. She remains alert and interactive on BiPAP. The EKG is negative for any acute ischemia. There is mild elevation of the troponin most likely secondary to hypoxic respiratory failure. White count is normal although there is a mild neutrophil predominance. The BUN is a little bit elevated. BNP is mildly elevated suggesting multifactorial respiratory failure. After the results were back decision was made to admit. Contact was made with the admitting service and care was transferred. Critical care note Critical care time: 30 Minutes, exclusive of procedures Due to a high probability of clinically significant, life threatening dete rioration, the patient required my highest level of preparedness to intervene emergently. I personally spent this critical care time directly and personally managing the patient. This critical care time included obtaining a history; examining the patient; monitoring of heart rate blood pressure and respiratory status; ordering and review of studies; arranging urgent treatment with development of a management plan; evaluation of patient's response to treatment; frequent reassessment; and discussions with patient, family and other providers. This critical care time was performed to assess and manage the high probability of imminent, life-threatening deterioration that could result in , permanent disability, threat to limb or multi-organ failure. Time was exclusive of separately billable procedures and treating other patients and teaching time. Please see ED course and MDM for specific interventions, assessments and discussions. This dictation was prepared using medical voice recognition software. Occasional voice recognition errors may occur. When identified, these errors have been corrected. While every attempt is made to correct errors during dictation, errors may still exist. BHARATHI CASTANEDA MD Jul 14, 2024 10:56 ALFRED VERDUGO MD Jul 14, 2024 11:46
[2024-07-14 11:09] LABS: B-TYPE NATRIURETIC PEPTIDE 674 pg/mL (0-100)
--- NOTE | 2024-07-14 11:30 | NUR ---
DR NUNEZ IN TO INTERVIEW/ASSESS THE PT.
--- NOTE | 2024-07-14 11:32 | HMCIMG ---
Exam Type: CHEST 1VW Clinical Information: sob Comparison: None Findings: There is cardiomegaly. There is prominence of the vascular markings consistent with pulmonary venous congestion. IMPRESSION: Findings consistent with pulmonary venous congestion.
--- NOTE | 2024-07-14 11:53 | NUR ---
CARDIOLOGY CONSULT: DR NUNEZ JUST SPOKE TO DR SINHA THE TEACHER SELECTION SPECIALIST
[2024-07-14 12:00] LABS: ABG BASE EXCESS -1.5 mmol/L (-2.0-3.0); ABG HCO3 25.6 mmol/L (21.0-28.0); ABG PCO2 55 mmHg (32-45); ABG PH 7.285 (7.350-7.450); CARBON MONOXIDE 0.6 % (0.5-1.5); PO2, ARTERIAL BG 101.3 mmHg (83.0-108.0); VENT MODE, BG BIPAP 12-6 (ROOM AIR)
[2024-07-14] MEDS ORDERED: PoTASSium chloRIDE 20MEQ ER 20 MEQ ERTAB PO PRN (12:00)
[2024-07-14] MEDS ORDERED: PoTASSium chl 10% ELIXIR 20MEQ 20 MEQ/15 ML UDCUP PO PRN (12:00)
[2024-07-14] MEDS ORDERED: BUDESONIDE 0.5 MG/2 ML INH IH SCH (12:00)
[2024-07-14] MEDS ORDERED: VANCOMYCIN PROTOCOL PER PHARMACY IV SCH (12:00)
[2024-07-14] MEDS ORDERED: ondanSETRON 4MG INJ IVP PRN (12:00)
[2024-07-14] MEDS ORDERED: acetaMINOPHEN 1,000 MG/100 ML VIAL IVPB PRN (12:00)
[2024-07-14] MEDS ORDERED: cefTRIAXone 1G VIAL IVPB ONE (12:00)
[2024-07-14] MEDS ORDERED: PoTASSium chloRIDE 20MEQ/100ML 100 ML IV PRN (12:00)
[2024-07-14] MEDS: IpraTROPium/alBUTERol SULFATE 3 ML SOLUTION IH SCH (12:00)
[2024-07-14 12:06] LABS: INR 0.98 (0.85-1.15)
[2024-07-14 12:07] LABS: ALBUMIN 2.9 g/dL (3.5-5.0); BILIRUBIN,DIRECT 0.1 mg/dL (0.0-0.3); BILIRUBIN,TOTAL 0.2 mg/dL (0.2-1.0); PARTIAL THROMBOPLASTIN TIME 30.5 SEC (26.3-35.5); TOTAL PROTEIN, SERUM 7.1 g/dL (6.0-8.3)
--- NOTE | 2024-07-14 12:09 | NUR ---
DNR: PHONE CONSENT OBTAINED BY JAIRO (PTS [place]) AND CORTES OF HER MEDICAL POWER OF FACILITIES PLANT ENGINEER. WITNESSED BY DR NUNEZ
[2024-07-14] MEDS ORDERED: LISI10TA24 PO (12:19)
[2024-07-14] MEDS ORDERED: FURO20TA6 PO (12:19)
[2024-07-14] MEDS ORDERED: POTA20PA32 PO (12:19)
--- NOTE | 2024-07-14 12:19 | NUR ---
MEDICATION RECONCILIATION: COMPLETE
--- NOTE | 2024-07-14 12:20 | NUR ---
CRITICAL CARE CONSULT: DR NUNEZ JUST SPOKE TO BENCHMARK PROVIDER.
--- NOTE | 2024-07-14 12:23 | NUR ---
CT ON HOLD PT ON BIPAP, DAPHNE WILL CALL WHEN READY
--- NOTE | 2024-07-14 12:43 | HP ---
[facility] HISTORY [facility] PHYSICAL Date of Service: Jul 14, 2024 Time of Service: 12:31 HISTORY OF PRESENT ILLNESS: [ Date of service: 07/14/2024, patient is critically ill, she was seen in ER room 20 88-year-old female with history of COPD, hypertension, hyperlipidemia, history of paroxysmal atrial fibrillation, prior history of MRSA pneumonia in 2022, obesity, anemia, prior smoker who presented to the ER for further evaluation of progressive shortness of breath with cough, wheezing and poor oral intake. Symptoms have been ongoing for the past one week and has been progressively worsening. Patient has not followed up with PCP. Patient's care provider was present at bedside who states patient has been having fevers and chills at home as well. She has history of swelling in the legs previously but the legs are not as swollen compared to 2-3 months ago. Patient is extremely hard of hearing and appears lethargic on bedside interview. She is currently on BiPAP support for management of respiratory failure. On presentation to the hospital, patient was noted to be hypoxemic with oxygen saturation in the 70s, tachypneic and tachycardic. Chest x-ray showed concerns for developing pneumonia. Labs on presentation significant for WBC count of 8800, hemoglobin of 9.1, platelet count of 238812 with neutrophilia. CMP remarkable for sodium of 135, potassium 4.2, BUN of 21, creatinine of 0.8, BNP of 674, lactic acid of 1.2. Cardiac panel showed troponin of 106. Arterial blood gas showed findings of respiratory acidosis with hypercapnia and hypoxemia. Patient will be admitted to ICU, for management of severe acute hypoxemic and hypercapnic respiratory failure with acute on chronic COPD exacerbation and developing community-acquired pneumonia. We will also obtain 2D echocardiogram to assess LVF and rule out heart failure exacerbation. Consultation with critical Care and Cardiology will be requested Patient's code status was discussed with Mrs. Kim Newberry who is the MPOA for the patient and is the niece and she lives in [place], [place]. She states that patient has previous wishes of do not intubate and she has also requested do not resuscitate. She states that patient previously has expressed that she would not want ventilator support. We will monitor this patient closely and see how patient progresses in the next 3-4 days. Condition remains critical. ] REVIEW OF SYSTEMS CONSTITUTIONAL: Asthenia, malaise, fevers, chills, poor oral intake NEUROLOGICAL: Denies headache, amaurosis fugax, motor weakness, sensory deficit, vertigo/spinning sensation, gait abnormalities, or tremors. ENT: No hearing loss, otalgia, otorrhea, rhinitis, rhinorrhea, hoarseness, or sore throat. CARDIOVASCULAR: Denies any exertional angina, dyspnea on exertion, orthopnea, paroxysmal nocturnal dyspnea, palpitations, life-threatening arrhythmias, claudication. PULMONARY: Shortness of breath, wheezing, cough SLEEP: Denies morning headaches, daytime somnolence or napping. Denies difficulty falling asleep, staying asleep, waking from sleep. Denies knowledge of snoring. GASTROINTESTINAL: Denies any type of dysphagia to either liquids or solids. Denies nausea, vomiting, pyrosis, early satiety, abdominal pain, diarrhea, constipation, or changes in stool consistency or caliber. Denies coffee-ground emesis, hematemesis, hematochezia, or melanotic stools. GENITOURINARY: Denies frequency, urgency, nocturia, hematuria or incontinence (Storage/Irritative symptoms.) Low urinary stream, straining to void, urinary intermittency or hesitancy, splitting of the voiding stream, terminal dribbling. ENDOCRINOLOGIC: Denies polyuria, polydipsia, polyphagia or heat/cold intolerances. HEMATOLOGIC: Denies thrombophilia/previous clots, or coagulopathy/bleeding disorders. ONCOLOGIC: Denies personal history of malignancy. DERMATOLOGIC: Denies rashes or pruritus. PSYCHIATRIC: Denies any suicidal or homicidal ideation. Denies hallucinations. PAST MEDICAL HISTORY: Right hip cancer Anemia, Hypertension, Chronic obstructive pulmonary disease, atrial fibrillation, CHF, MRSA pneumonia in 2022 and obesity PAST SURGICAL HISTORY: Left hip surgery PAST SOCIAL HISTORY: Patient lives with care provider who assist with ADLs and IADLs. Patient states she used to smoke and drinks alcohol 10 years ago she quit. Patient denies recreational drug use. Mrs. Kim Newberry is the medical power of energy attorney for the patient and she is in [facility], she is the niece of the patient FAMILY HISTORY: Cardiovascular disease Cancer Allergies: Patient has no known drug allergies Medications: Coded Allergies: No Known Drug Allergies (Verified Allergy, Unknown, 03/30/21) PHYSICAL EXAM GENERAL APPEARANCE: The patient is awake, alert, and oriented, in no acute cardiopulmonary distress. NEUROLOGICAL: Cranial nerves II-XII grossly intact. Motor is 5/5 in bilateral upper and lower extremities proximal to distal. No sensory deficits. HEENT: Face is symmetric. Pupils are equal and reactive. Extraocular movements are intact. NECK: Supple. No JVD. No thyromegaly. No submental, submandibular, pre- /postauricular, occipital or supraclavicular lymphadenopathy. CHEST: Normal chest expansion. No Telemetry. LUNGS: Absence of any rales, rhonchi or any wheezing. CARDIOVASCULAR: Regular. S1 and S2 normal. No appreciable rubs, murmurs or gallops. ABDOMEN: Soft, nontender, and nondistended. There is no rebound, voluntary guarding, or rigidity. : Deferred. No Nelson. EXTREMITIES: Non-edematous and not cyanotic. No clubbing. Good capillary refill. SKIN: No skin breakdown. Vital Sign (Last 24 Hours) 07/14/24 07/14/24 07/14/24 09:36 10:00 12:02 Temp 99.0 Pulse 40 Resp 27 B/P (MAP) 147/58 Pulse Ox 94 O2 Delivery Nasal Cannula* O2 Flow Rate 4 FiO2 35 LABS: Laboratory: Test 07/14/24 11:59 07/14/24 10:06 07/14/24 10:03 Range/Units Blood Gas Specimen Type Arterial Arterial Blood pH 7.285 L 7.350-7.450 Arterial Blood Partial Pressure CO2 55 H 32-45 mmHg Arterial Blood Partial Pressure O2 101.3 83.0-108.0 mmHg Arterial Blood HCO3 25.6 21.0-28.0 mmol/L Arterial Blood Oxygen Saturation 97.0 94.0-98.0 % Arterial Blood Base Excess -1.5 -2.0-3.0 mmol/L Hemoglobin (Blood Gas) 9.8 L 12.0-16.0 g/dL Sodium (Blood Gas) 133 L 136-145 MMOL/L Bedside Potassium (Blood Gas) 4.5 3.4-4.5 MMOL/L Bedside Chloride (Blood Gas) 102 98-107 MMOL/L Bedside Glucose (Blood Gas) 123 H 65-95 MG/DL Bedside Ionized Calcium (Blood Gas) 1.15 1.15-1.33 MMOL/L Bedside Lactic Acid (Blood Gas) 0.74 0.36-0.75 MMOL/L Blood Gas Temperature 37.0 35.5-37.0 CELSIUS Blood Gas Respiration Rate 16.0 min. Blood Gas Vent Mode BIPAP 12-6 ROOM AIR FiO2 40.0 % Blood Gas Specimen Comment RR,DAPHNE-RN Lactic Acid Level 1.2 0.8-2.5 mmol/L Venous Blood pH 7.271 L 7.320-7.430 Venous Blood pCO2 at Patient Temp 64 *H 38-54 Venous Blood pO2 at Patient Temp 44.3 23.0-48.0 mmHg Venous Blood HCO3 28.8 22.0-29.0 Venous Blood Base Excess 0.2 -2.0-3.0 Blood Gas Flow-by 4.00 0.00-15.00 L/min White Blood Count 8.8 4.8-10.8 K/uL Red Blood Count 3.51 L 4.00-5.50 MIL/uL Hemoglobin 9.1 L 12.0-16.0 g/dL Hematocrit 29.8 L 36-48 % Mean Corpuscular Volume 84.9 79-99 fL Mean Corpuscular Hemoglobin 25.9 L 27.0-33.0 pg Mean Corpuscular Hemoglobin Concent 30.5 L 32.0-36.0 g/dL Red Cell Distribution Width 18.8 H 11.0-15.5 % Platelet Count 300 130-400 K/uL Mean Platelet Volume 10.1 7.5-10.5 fL Immature Granulocyte % (Auto) 1.1 H 0-1 % Neutrophils (%) (Auto) 85.6 H 40.0-77.0 % Lymphocytes (%) (Auto) 7.2 L 21.0-51.0 % Monocytes (%) (Auto) 5.5 3.0-13.0 % Eosinophils (%) (Auto) 0.1 0.0-8.0 % Basophils (%) (Auto) 0.5 0.0-5.0 % Neutrophils # (Auto) 7.5 1.8-7.7 K/uL Lymphocytes # (Auto) 0.6 L 1.0-4.8 K/uL Monocytes # (Auto) 0.5 0.1-1.0 K/uL Eosinophils # (Auto) 0.01 0.00-0.70 K/uL Basophils # (Auto) 0.04 0.00-0.20 K/uL Absolute Immature Granulocyte (auto 0.10 0-1 K/uL Nucleated Red Blood Cells 0.0 0.0-0.19 % White Cell Morphology Comment See comments Red Blood Cell Morphology See comments Prothrombin Time 11.0 9.6-11.6 SEC Prothromb Time International Ratio 0.98 0.85-1.15 Activated Partial Thromboplast Time 30.5 26.3-35.5 SEC Sodium Level 135 L 136-145 mmol/L Potassium Level 4.2 3.5-5.1 mmol/L Chloride Level 102 101-111 mmol/L Carbon Dioxide Level 31 21-32 mmol/L Blood Urea Nitrogen 21 H 7-18 mg/dL Creatinine 0.8 0.5-1.0 mg/dL Glomerular Filtration Rate Calc 71 >90 mL/min Random Glucose 150 H 70-105 mg/dL Total Calcium 8.9 8.5-10.1 mg/dL Total Bilirubin 0.2 0.2-1.0 mg/dL Direct Bilirubin 0.1 0.0-0.3 mg/dL Aspartate Amino Transf (AST/SGOT) 35 10-37 U/L Alanine Aminotransferase (ALT/SGPT) 27 12-78 U/L Alkaline Phosphatase 118 50-136 U/L Troponin I High Sensitivity 106 *H 4-50 ng/L C-Reactive Protein, Quantitative 32.00 H 0.5-3.0 mg/L B-Type Natriuretic Peptide 674 H 0-100 pg/mL Total Protein 7.1 6.0-8.3 g/dL Albumin 2.9 L 3.5-5.0 g/dL Procalcitonin 0.15 0.05-0.5 ng/mL Current Medications Medications (Trade) Dose Ordered Sig/Parker Route PRN Reason Start Time Stop Time Status Last Admin Dose Admin Acetaminophen (acetaMINOPHEN) 1,000 mg Q12H PRN IVPB PAIN/ FEVER, 1-5 07/14/24 12:00 08/13/24 11:59 Albuterol (DUOneb) 1 udvial [id number] 07/14/24 12:00 08/13/24 11:59 07/14/24 12:00 1 UDVIAL Budesonide (Pulmicort 0.5 Mg/2ml) 0.5 mg Q12H 07/14/24 12:00 08/13/24 11:59 Cefepime HCl (MAXipime 2 gm vial) 2 gm Q12H IVPB 07/14/24 12:00 07/24/24 11:59 Doxycycline Hyclate 250 ml @ 125 mls/hr Q12H IV 07/14/24 13:00 07/24/24 12:59 Furosemide (LASix 20MG VIAL) 20 mg Q12H IV 07/14/24 12:30 08/13/24 12:29 Magnesium Sulfate 50 ml @ 0 mls/hr PROTOCOL IV 07/14/24 12:00 08/13/24 11:59 Methylprednisolone Sodium Succinate (Solu-medROL 40MG) 60 mg Q8H IVP 07/14/24 15:00 08/13/24 14:59 Ondansetron HCl (zoFRAN 4MG INJ) 4 mg Q6H PRN IVP NAUSEA/VOMITING 07/14/24 12:00 08/13/24 11:59 Pantoprazole Sodium (PROTonix 40MG INJ) 40 mg Q24H IVP 07/14/24 12:00 08/13/24 11:59 Potassium Chloride 100 ml @ 100 mls/hr AD PRN IV POTASSIUM PROTOCOL 07/14/24 12:00 08/13/24 11:59 Potassium Chloride (K-Dur/Klor-Con 20meq) 20 meq AD PRN PO POTASSIUM PROTOCOL 07/14/24 12:00 08/13/24 11:59 Potassium Chloride (KCl 10% Elixir 20meq/15ml) 20 meq AD PRN PO POTASSIUM PROTOCOL 07/14/24 12:00 08/13/24 11:59 Vancomycin HCl 250 ml @ 125 mls/hr Q24H IV 07/15/24 15:00 07/25/24 14:59 Vancomycin HCl (Vancomycin Protocol) 1 each AD IV 07/14/24 12:00 07/28/24 11:59 DIAGNOSTICS / RADIOLOGY: [SERVICE [id number] REASON: sob ORDERING PHYSICIAN: BHARATHI CASTANEDA MD PROCEDURE: CXR1VW - CHEST 1VW Exam Type: CHEST 1VW Clinical Information: sob Comparison: None Findings: There is cardiomegaly. There is prominence of the vascular markings consistent with pulmonary venous congestion. IMPRESSION: Findings consistent with pulmonary venous congestion. DICTATED BY: BEATRIZ JEFFERY MD DATE: 07/14/24 112 ELECTRONICALLY SIGNED BY: BEATRIZ JEFFERY MD DATE: 07/14/24 1132 ] ASSESSMENT: Severe acute hypoxemic respiratory failure, POA Acute hypercapnic respiratory failure with respiratory acidosis, POA Acute COPD exacerbation, POA Suspected developing community-acquired pneumonia, POA Rule out diastolic heart failure exacerbation, POA Type 2 NSTEMI, secondary to underlying respiratory failure, POA History of COPD, POA History of MRSA pneumonia in 2022, POA Hypertension, POA Hyperlipidemia, POA Moderate protein calorie malnutrition, POA Frailty/debility/deconditioning, POA Underlying history of anemia, POA PLAN: Patient will be admitted to ICU patient is critically ill, continue with noninvasive ventilation support with BiPAP today for management of hypercapnia and hypoxemia We will start patient on IV Solu-Medrol 60 mg q.8 hours, patient will be started on scheduled nebs, Pulmicort, and antitussives p.r.n. Broad-spectrum antibiotics with vancomycin/cefepime/doxycycline We will obtain blood cultures, respiratory culture, obtain urinalysis, flu covid test We will start patient on gentle IV diuresis with Lasix 20 mg q.12 hours, we will obtain 2D echocardiogram, 2D echo from March showed preserved LVEF We will request consultation with Cardiology and critical Care Patient will be kept strictly NPO until respiratory status improves Patient will be placed on aspiration precautions Home medications will be reconciled and updated Patient's niece, . Kim Newberry stated that patient has previous wishes of not wanting ventilator, she is also stated that given her advanced age she would like patient to be do not resuscitate as well, code status will be updated to reflect DNR/DNI All labs will be repeated in the morning, we will check an iron panel and B12 and folic acid level with a.m. labs tomorrow, transfuse to maintain Hgb > 7 DVT prophylaxis with Lovenox, GI prophylaxis with Protonix Sliding scale insulin a.c. and HS Condition: Critical, critical care minutes: 45 minutes Date of service: 07/14/2024 Advanced Care Planning: Which of the following were discussed: Hospice care: Yes __ No _x_ Therapeutic options: Yes _x_ No __ Advance directives: Yes _x_ No __ Other discussions: Discussed with who?: Niece, Mrs. Alvarez Coni Voluntary nature of this service was explained to the patient? Yes _x_ No __ Amount of time spent: 17 minutes BEVERLY NUNEZ MD Jul 14, 2024 12:43
[2024-07-14] MEDS: PANTOPrazole 40 MG/VIAL IVP SCH (12:53)
[2024-07-14] MEDS: furoSEMIDE 20MG VIAL IV SCH (12:53)
[2024-07-14] MEDS: ceFEPime HCL 2 GM VIAL IVPB SCH (12:53)
[2024-07-14] MEDS ORDERED: acetaMINOPHEN 100 ML IVPB PRN (13:00)
[2024-07-14 13:42] LABS: INFLUENZA TYPE A Negative For Type A (NEGATIVE); INFLUENZA TYPE B Negative For Type B (NEGATIVE)
[2024-07-14 13:48] LABS: SARS-CoV-2, RNA, NAAT NEGATIVE SARS CoV-2 (NEGATIVE)
--- NOTE | 2024-07-14 14:06 | NUR ---
2 D ECHO: TECH CURRENTLY AT BEDSIDE.
[2024-07-14] MEDS: VANCOMYCIN 1.75 GM/250 ML BAG 250 ML IV ONE (14:29)
--- NOTE | 2024-07-14 14:50 | NUR ---
CRITICAL CARE CONSULT: MARITZA BOO CURRENTLY AT BEDSIDE W/PT.
--- NOTE | 2024-07-14 14:51 | HMCSR ---
APPROVED REPORT EXAM: Two-dimensional and M-mode echocardiogram with Doppler and color Doppler. INDICATION ICD: Elevated troponin Contrast Details Indication: A 2D Dimensions RVDd4.1 cmLVEF(%)46.0 (>50%)LVED Vol(simp.)119.0 mL IVSd1.0 (0.7-1.1cm)FS(%)23 %LVES Vol(simp.)51.4 mL LVDd4.4 (3.8-5.6cm)LA (2D)4.5 (1.6-4.0cm)LVEF(%, simp.)57 % PWd1.2 (0.7-1.1cm)Ao Root(2D)3.2 (2.0-3.7cm)LA ESV INDEX (4CH)32.80 mL/m2 IVSs1.2 cmLVOT diam2.1 (1.8-2.4cm)LA ESV INDEX (2CH)31.10 mL/m2 LVDs3.4 (2.5-4.0cm)LA ESV INDEX (BP)31.40 mL/m2 PWs1.3 cm M-Mode Dimensions EPSS0.9 cm LA (MM)4.5 (1.6-4.0cm) Ao Root(MM)2.7 (2.0-3.7cm) Aortic Valve AoV VTI0.5 mAo Mean GR11.0 mmHgLVOT VTI0.22 m DRU (VMAX)1.6 cm2AVA (VTI) 1.6 cm2 Mitral Valve MV E Vmax78.1 cm/sDECEL Nuit050 ms MV A Zgpc333.7 cm/sP 1/2 T60 ms E/A ratio0.6MVA (PHT)3.7 cm2 TDI E/E' Dvgxbb61.4E/E' Fmksjda15.6 Medial E' Peak V4.50 cm/sLateral E' Peak V6.20 cm/s Pulmonary Valve PV VTI0.27 mPV Mean GR4 mmHg Tricuspid Valve TR Vmax3.1 m/sRAP (EST) 8 gyPvOMUR26.0 mmHg TR Peak GR38.0 mmHg Left Ventricle The left ventricle is normal size. There is normal left ventricular wall thickness. LVEF is 50-55%. S tage I diastolic dysfunction. Right Ventricle The right ventricle is normal size. The right ventricular systolic function is normal. Atria The left atrium size is normal. Lipomatous atrial septal hypertrophy is present. The right atrium is mildly dilated. Aortic Valve Aortic valve is trileaflet sclerotic and mildly thickened. No aortic regurgitation is present. There is no aortic valvular stenosis. Mitral Valve The mitral valve is normal in structure. There is trace of mitral valve regurgitation noted. There is no mitral valve stenosis. Tricuspid Valve The tricuspid valve is normal in structure. There is mild tricuspid valve regurgitation noted. Pulmonic Valve The pulmonary valve is normal in structure. There is no pulmonic valvular regurgitation. Great Vessels The aortic root is normal in size. IVC is not well visualized. Pericardium There is no pericardial effusion. Other Information Quality : Fair Conclusion LVEF is 50-55%. Stage I diastolic dysfunction. Aortic valve is trileaflet sclerotic and mildly thickened. There is trace of mitral valve regurgitation noted. There is no pericardial effusion.
[2024-07-14 15:14] LABS: APPEARANCE,URINE CLEAR (CLEAR); BILIRUBIN,URINE NEGATIVE (NEGATIVE); COLOR,URINE LIGHT-YELLOW (YELLOW); GLUCOSE, URINE (UA) NEGATIVE (NEGATIVE); KETONES,URINE NEGATIVE (NEGATIVE); LEUKOCYTE ESTERASE ,URINE 75 Leu/uL (NEGATIVE); NITRATE,URINE 1+ (NEGATIVE); OCCULT BLOOD,URINE SMALL (NEGATIVE); PH,URINE 5.5 (5.0-8.0); PROTEIN,URINE 100 mg/dL (NEGATIVE); UROBILINOGEN,URINE 0.2 mg/dL (0.2-1.0)
--- NOTE | 2024-07-14 15:15 | CONS ---
[facility] CONSULTATION NOTE Date Patient Seen: Jul 14, 2024 Time of Visit: 15:15 Supervising Physician: Grayson Reynolds MD Reason for Consultation: Respiratory Failure on Bipap Primary Care Physician: Mary Aguilera MD Outpatient Specialists: Inpatient Consults: DR ERNESTINE MORA, DR CHAPITO LAUGHLIN PROBLEM LIST: Acute hypercapnic and Jan hypoxemic respiratory failure, POA Acute respiratory acidosis, POA Acute COPD exacerbation, POA Suspected community-acquired pneumonia, POA Acute on chronic diastolic heart failure, POA EF 50-55% on 2D echo 07/14/24 Suspicion for moderate pulmonary hypertension with RVSP of 46 mm Hg on 2D echo 07/14/24 NSTEMI, POA Acute microcytic and hypochromic anemia 60 on chronic anemia, POA History of: COPD, MRSA pneumoniae hypertension, hyperlipidemia, frailty and debility, anemia HPI: This is a pleasant 88-year-old female with a past medical history of COPD, hypertension, hyperlipidemia history of AFib, prior history of MRSA pneumonia in 2022, obesity and chronic anemia who came into the ED for evaluation of increased shortness of breath, wheezing and failure to thrive. As per caregiver who is at the bedside symptoms worsen within the last week. She has been able to follow up with primary care physician due to her debilitation and increased shortness of breath. Caregiver reports patient has been having some chills and fever home and due to her previous history of pneumonia decided to bring her for evaluation. On arrival to the emergency department patient has a temperature of 99 pulse of 110, respiratory rate of 28 blood pressure 177/67 and saturating 83% on room air. On venous blood gas pH of 7.27 pCO2 of 64 PO2 of 75.3 and a BiPAP 148.8 consistent with acute respiratory acidosis and was placed in a BiPAP of 12/6 with 40% FiO2. Patient has seemed to tolerated well and she was admitted to ICU for acute respiratory failure and we were consulted for critical care management and COPD exacerbation per primary team. On assessment of patient she is awake alert and oriented x2. She is on the BiPAP machine tolerating it well 14/6 with 40% saturating 94% on the monitor. Her niece is patient's POA and has signed DNR and DNI per RN report. On CBC H&H 9.1/29.8 platelet count is 710861 neutrophil count is 85 point. ESR is 105. Chemistry shows a sodium of 135 carbon dioxide of 31 BUN of 21 creatinine of 0.8 GFR of 71 with a glucose of 150 mg/dL. High sensitive troponin 106 BNP 674 CRP is 32 and albumin of 2.9. Chest x-ray shows cardiomegaly there is prominence of the vascular markings consistent with pulmonary venous congestion. 2D echo shows LVEF of 50-55% stage I diastolic dysfunction aortic valve is trileaflet sclerotic and mildly thickened there is a trace of mitral valve regurgitation noted there is no pericardial effusion. RVSP 46 mm Hg suspicion for moderate pulmonary hypertension. PAST MEDICAL HX: see above PAST SURGICAL HX: noncontributory SOCIAL HISTORY: No tobacco, ETOH, or illicit drug use Coded Allergies: No Known Drug Allergies (Verified Allergy, Unknown, 03/30/21) REVIEW OF SYSTEMS: 12 point ROS reviewed with patient. Pertinent positives mentioned above. Otherwise negative. PHYSICAL EXAM: GENERAL: alert, weak, awake oriented x 2 HEENT: EOMI, Sclera non icteric, moist mucosa NECK: Supple, no JVD, trachea midline LUNGS: wheezes breath sounds bilaterally. No wheezes HEART: Regular rate and rhythm. Normal S1 and S2, without murmurs ABD: Abdomen soft, nontender. Bowel sounds present EXT: No clubbing cyanosis or edema NEURO: Alert and oriented to person, follows commands Vital Signs (last 8hr) Date Time Temp Pulse Resp B/P (MAP) Pulse Ox O2 Delivery O2 Flow Rate FiO2 07/14/24 14:00 78 30 159/64 94 Bi-PAP+ 35 07/14/24 12:02 40 27 35 07/14/24 12:00 74 30 07/14/24 12:00 73 30 152/52 96 Bi-PAP+ 35 07/14/24 10:30 83 32 40 07/14/24 10:00 99 43 147/58 94 Nasal Cannula* 4 36 07/14/24 09:55 88 28 07/14/24 09:36 99.0 110 28 177/67 83 Room Air LABS: Hematology Labs: Test 07/14/24 10:03 Range/Units White Blood Count 8.8 4.8-10.8 K/uL Red Blood Count 3.51 L 4.00-5.50 MIL/uL Hemoglobin 9.1 L 12.0-16.0 g/dL Hematocrit 29.8 L 36-48 % Mean Corpuscular Volume 84.9 79-99 fL Mean Corpuscular Hemoglobin 25.9 L 27.0-33.0 pg Mean Corpuscular Hemoglobin Concent 30.5 L 32.0-36.0 g/dL Red Cell Distribution Width 18.8 H 11.0-15.5 % Platelet Count 300 130-400 K/uL Mean Platelet Volume 10.1 7.5-10.5 fL Immature Granulocyte % (Auto) 1.1 H 0-1 % Neutrophils (%) (Auto) 85.6 H 40.0-77.0 % Lymphocytes (%) (Auto) 7.2 L 21.0-51.0 % Monocytes (%) (Auto) 5.5 3.0-13.0 % Eosinophils (%) (Auto) 0.1 0.0-8.0 % Basophils (%) (Auto) 0.5 0.0-5.0 % Neutrophils # (Auto) 7.5 1.8-7.7 K/uL Lymphocytes # (Auto) 0.6 L 1.0-4.8 K/uL Monocytes # (Auto) 0.5 0.1-1.0 K/uL Eosinophils # (Auto) 0.01 0.00-0.70 K/uL Basophils # (Auto) 0.04 0.00-0.20 K/uL Absolute Immature Granulocyte (auto 0.10 0-1 K/uL Nucleated Red Blood Cells 0.0 0.0-0.19 % White Cell Morphology Comment See comments Red Blood Cell Morphology See comments Erythrocyte Sedimentation Rate 105 H 0-30 MM/HR Chemistry Labs: Test 07/14/24 11:59 07/14/24 10:03 Range/Units Lactic Acid Level 1.2 0.8-2.5 mmol/L Sodium Level 135 L 136-145 mmol/L Potassium Level 4.2 3.5-5.1 mmol/L Chloride Level 102 101-111 mmol/L Carbon Dioxide Level 31 21-32 mmol/L Blood Urea Nitrogen 21 H 7-18 mg/dL Creatinine 0.8 0.5-1.0 mg/dL Glomerular Filtration Rate Calc 71 >90 mL/min Random Glucose 150 H 70-105 mg/dL Total Calcium 8.9 8.5-10.1 mg/dL Magnesium Level 2.20 1.80-2.40 mg/dL Total Bilirubin 0.2 0.2-1.0 mg/dL Direct Bilirubin 0.1 0.0-0.3 mg/dL Aspartate Amino Transf (AST/SGOT) 35 10-37 U/L Alanine Aminotransferase (ALT/SGPT) 27 12-78 U/L Alkaline Phosphatase 118 50-136 U/L Troponin I High Sensitivity 106 *H 4-50 ng/L C-Reactive Protein, Quantitative 32.00 H 0.5-3.0 mg/L B-Type Natriuretic Peptide 674 H 0-100 pg/mL Total Protein 7.1 6.0-8.3 g/dL Albumin 2.9 L 3.5-5.0 g/dL Procalcitonin 0.15 0.05-0.5 ng/mL Coagulation Labs: Test 07/14/24 10:03 Range/Units Prothrombin Time 11.0 9.6-11.6 SEC Prothromb Time International Ratio 0.98 0.85-1.15 Activated Partial Thromboplast Time 30.5 26.3-35.5 SEC DIAGNOSTICS / RADIOLOGY RESULTS: [ ] Signed PATIENT: CHUYITA ARANDA MR#: [id number] : 1935 SEX: F AGE: 88 LOCATION: [facility] ORDER 1245 STATUS: ADM IN REPORT#: [id number] SERVICE 1243 REASON: elevated troponin, per request of Dr. Cardona ORDERING PHYSICIAN: BEVERLY NUNEZ MD PROCEDURE: ECHO [facility] - ECHO 2-D COMPLETE APPROVED REPORT EXAM: Two-dimensional and M-mode echocardiogram with Doppler and color Doppler. INDICATION ICD: Elevated troponin Contrast Details Indication: A 2D Dimensions RVDd 4.1 cm LVEF(%) 46.0 (>50%) LVED Vol(simp.) 119.0 mL IVSd 1.0 (0.7-1.1cm) FS(%) 23 % LVES Vol(simp.) 51.4 mL LVDd 4.4 (3.8-5.6cm) LA (2D) 4.5 (1.6-4.0cm) LVEF(%, simp.) 57 % PWd 1.2 (0.7-1.1cm) Ao Root(2D) 3.2 (2.0-3.7cm) LA ESV INDEX (4CH) 32.80 mL/m2 IVSs 1.2 cm LVOT diam 2.1 (1.8-2.4cm) LA ESV INDEX (2CH) 31.10 mL/m 2 LVDs 3.4 (2.5-4.0cm) LA ESV INDEX (BP) 31.40 mL/m2 PWs 1.3 cm M-Mode Dimensions EPSS 0.9 cm LA (MM) 4.5 (1.6-4.0cm) Ao Root(MM) 2.7 (2.0-3.7cm) Aortic Valve AoV VTI 0.5 m Ao Mean GR 11.0 mmHg LVOT VTI 0.22 m DRU (VMAX) 1.6 cm2 DRU (VTI) 1.6 cm2 Mitral Valve MV E Vmax 78.1 cm/s DECEL Time 120 ms MV A Vmax 122.7 cm/s P 1/2 T 60 ms E/A ratio 0.6 MVA (PHT) 3.7 cm2 TDI E/E' Medial 17.4 E/E' Lateral 12.6 Medial E' Peak V 4.50 cm/s Lateral E' Peak V 6.20 cm/s Pulmonary Valve PV VTI 0.27 m PV Mean GR 4 mmHg Tricuspid Valve TR Vmax 3.1 m/s RAP (EST) 8 mmHg RVSP 46.0 mmHg TR Peak GR 38.0 mmHg Left Ventricle The left ventricle is normal size. There is normal left ventricular wall thickness. LVEF is 50-55%. Stage I diastolic dysfunction. Right Ventricle The right ventricle is normal size. The right ventricular systolic function is normal. Atria The left atrium size is normal. Lipomatous atrial septal hypertrophy is present. The right atrium is mildly dilated. Aortic Valve Aortic valve is trileaflet sclerotic and mildly thickened. No aortic regurgitation is present. There is no aortic valvular stenosis. Mitral Valve The mitral valve is normal in structure. There is trace of mitral valve regurgitation noted. There is no mitral valve stenosis. Tricuspid Valve The tricuspid valve is normal in structure. There is mild tricuspid valve regurgitation noted. Pulmonic Valve The pulmonary valve is normal in structure. There is no pulmonic valvular regurgitation. Great Vessels The aortic root is normal in size. IVC is not well visualized. Pericardium There is no pericardial effusion. Other Information Quality : Fair Conclusion LVEF is 50-55%. Stage I diastolic dysfunction. Aortic valve is trileaflet sclerotic and mildly thickened. There is trace of mitral valve regurgitation noted. There is no pericardial effusion. DICTATED BY: LEXA CARDONA MD DATE: 07/14/24 1401 ELECTRONICALLY SIGNED BY: LEXA CARDONA MD DATE: 07/14/24 1451 Signed PATIENT: CHUYITA ARANDA MR#: [id number] : 1935 SEX: F AGE: 88 LOCATION: [facility] ORDER 8 STATUS: REG ER REPORT#: [id number] SERVICE 5 REASON: sob ORDERING PHYSICIAN: BHARATHI CASTANEDA MD PROCEDURE: CXR1VW - CHEST 1VW Exam Type: CHEST 1VW Clinical Information: sob Comparison: None Findings: There is cardiomegaly. There is prominence of the vascular markings consistent with pulmonary venous congestion. IMPRESSION: Findings consistent with pulmonary venous congestion. DICTATED BY: BEATRIZ JEFFERY MD DATE: 07/14/24 112 ELECTRONICALLY SIGNED BY: BEATRIZ JEFFERY MD DATE: 07/14/24 113 PLAN Continue Solu-Medrol 40 mg q.8 hours IV push and wean as tolerated Start Lasix 20 mg IV push q.12 hours Cover empirically for Healthcare associated pneumonia w/ Vanco cefepim and Doxy. Pulmicort nebs bid, Atrovent no albuterol due to tachycardia. CPT with nebs Singulair 10 mg daily Follow respiratory cultures Maintain O2 sats above 88% Gi PPX with protonix due to steroids Influenza a and B negative, COVID-19 negative, Chest x-ray in the morning, wean off O2 as tolerated. Patient to follow up as outpatient at pulmonary clinic in two weeks for PFTs We will follow along with you. NEURO: Minimize central acting medications as possible. Fall Precautions. Well lighted room through the day and minimize interruptions through the night to prevent acute delirium. PULMONARY: Supplemental 02 as needed Titrate Fio2 to keep Spo2 > or = 90% DuoNebs and CPT as needed IS hourly while awake for pulmonary hygiene Out of bed to chair as tolerated VAP Bundle Vent/BIPAP Settings: 14/ 30% CARDIOVASCULAR: Follow hemodynamics. Titrate vasopressor to keep MAP >65 or systolic blood pressure >95mmHg tele Drips: NONE LINES: PIV GI & NUTRITION: Continue nutritional support Aspirations precautions Prokinetic agents and laxatives as needed KIDNEYS & ELECTROLYTES: Strict monitoring of intake and output Daily weights Avoid nephrotoxic agents Monitor electrolytes and replace as needed Goal urine output of 30mL/hr or 0.5mL/kg/hr Urine output: [ ] Fluid Balance: [ ] ENDOCRINE: Maintain blood glucose between 100-180 at all times. Insulin sliding scale for blood glucose management INFECTIOUS DISEASE: Trend temperature. [place]-culture if febrile. Micro: [ ] blood culture resp culture urine culture Antibiotics: cefepim vanco doxy HEMATOLOGY & COAGULATION: Monitor H&H. Keep Hgb > 7 Transfuse 1 unit of PRBC for Hgb < 7 Transfuse 1 pack of platelets of platelets < 20, 000 Watch for any signs and symptoms of bleeding SKIN: Pressure ulcer prevention per facility protocol Rehab: PT/OT Prophylaxis: GI: Protonix DVT: Lovenox Code Status: DNR Disposition: PCCU Other: Total patient care time exceeds 45 minutes excluding all procedures. Case was discussed and seen with my supervising physician. The above plan was formulated and agreed upon. ROSSY ROCHA Jul 14, 2024 15:15
[2024-07-14 15:16] LABS: ADD UA MICROSCOPIC YES
--- NOTE | 2024-07-14 15:16 | NUR ---
CARDIOLOGY: DR SINHA CURRENTLY AT BEDSIDE W/PT INTERVIEWING/ASSESSING HER. HE STATED HE HAS REVIEWED THE 2 D ECHO
[2024-07-14 15:23] LABS: BACTERIA,URINE MANY /HPF (None Seen); MUCUS,URINE RARE LPF (None Seen); RBC,URINE 0-1 /HPF (0-1); SQUAMOUS EPITHELIAL CELL,UR RARE /HPF (0-2)
--- NOTE | 2024-07-14 16:05 | NUR ---
BED ASSIGNMENT: BED 208 JUST ASSIGNED BY ARTISTIC DIRECTOR Tanya CRUZ RN AT [id number]
[2024-07-14] MEDS: DOXYCYCLINE 100MG+NS 250ML 250 ML IV SCH (16:09)
[2024-07-14] MEDS: Solu-medROL 40MG VIAL IVP SCH ×2 (16:09→23:04)
--- NOTE | 2024-07-14 16:20 | NUR ---
12 LEAD EKG PICTURE SENT TO DR SINHA WITHOUT NAME BUT V NUMBER SHOWING PER HIS REQUEST.
[2024-07-14] MEDS: INSULIN humuLIN R 100 UNIT/ML 3ML SQ SCH (16:30)
--- NOTE | 2024-07-14 16:34 | NUR ---
REPORT: REPORT WAS ENDORSED TO SEBASTIAN MARTINEZ
[2024-07-14] MEDS ORDERED: guaiFENesin-DM 200/20MG 10ML PO PRN (17:30)
--- NOTE | 2024-07-14 17:38 | NUR ---
PT UNABLE TO STOP BY CT UNSTABLE PER MICHELLE SERNA TAKEN STRAIGHT TO 2ND FLOOR PT ON BIPAP
--- NOTE | 2024-07-14 17:38 | NUR ---
UPON ARRIVAL TO ICE BED 208, WE WERE INFORMED AT THE LAST MINUTE TO GO TO BED 229
[2024-07-14] MEDS: BUDESONIDE 0.25 MG/2 ML INH IH ONE (19:07)
[2024-07-14] MEDS: BUDESONIDE 0.5 MG/2 ML INH IH SCH (19:15)
[2024-07-14] MEDS: SODIUM CHLORIDE 3% FOR INHALATION 4 ML/AMP VIAL.NEB IH ONE ×2 (19:22→23:23)
--- NOTE | 2024-07-14 19:43 | NUR ---
Spoke with MPOA niece Kim Newberry regarding copy of MPOA. Family stated that she can send a copy via email if provided to her, entered [employer] social worker consult to follow up tomorrow. Family stated that patient has a copy at home, however provider does not have access to bring a copy.
[2024-07-14 21:24] LABS: CREATININE 0.9 mg/dL (0.5-1.0); POTASSIUM 4.4 mmol/L (3.5-5.1)
--- NOTE | 2024-07-14 22:00 | NUR ---
CT pending CT seen pending. Pt currently remains on BiPAP for resp support. Pt also unable to tolerate laying flat at this time.
--- NOTE | 2024-07-14 22:23 | CONS ---
CARDIOLOGY CONSULTATION REFERRING PHYSICIAN: Julio King MD. REASON FOR REFERRAL: Severe shortness of breath. HISTORY OF PRESENT ILLNESS: This is an 88-year-old woman who has a history of severe shortness of breath, but has no previous history of heart disease. She was admitted to the hospital with worsening of shortness of breath. She had some nausea, no vomiting, and history is obtained through her licensed therapist, although the patient is alert and does answer questions and knows where she is at and the date. She has poor recall details. Nevertheless, she states that she was very short of breath when she arrived and now after appropriate pulmonary treatment is feeling better. She has also been diuresed and is breathing much easier. Currently, she has no major complaints; however, she has multiple symptoms expected in a geriatric of her age. She has limiting arthritides, but is able to walk several feet. She is incontinent of urine. She has some swelling in her lower extremity, but no pain. There is no change in her bowel habits. She had previously been admitted for urinary tract infections. PHYSICAL EXAMINATION: GENERAL: Currently on exam, she is alert and oriented x 2 at least, and she is comfortable. HEENT: Unremarkable for an 88-year-old. VITAL SIGNS: Blood pressure is currently 59/64. She is receiving other agents for blood pressure control. She is in atrial fibrillation on arrival to the hospital; however, after simple measures and respiratory therapy, she has converted to sinus rhythm. Her electrocardiogram in atrial fibrillation shows no evidence of ischemia. NECK: Otherwise on exam, the jugular venous pulse is difficult to determine, but appears to be around 7. There are no carotid bruits. LUNGS: Distant. There is no rhonchi, no wheezes. HEART: Currently relatively regular. Heart sounds are distant. There is no S3. There is no S4. ABDOMEN: Soft and nontender. EXTREMITIES: Have poor pulses. There is 2+ edema. LABORATORY DATA: Her white count is 8.8, H and H are 9.1 and 29.8. Her ESR is markedly elevated at 105. Coags are unremarkable with an INR of 0.98. Her troponin initially was 108, repeat is pending. C-reactive protein is 32. Blood gases demonstrated a pH of 7.28, pCo2 of 55, pO2 of 101. Sodium is slightly low at 133, glucose 123. She is on BiPAP. Urinalysis is positive for nitrites and leukocyte esterase, there are urine wbc's. ASSESSMENT AND PLAN: Respiratory failure in a lady who has developed atrial fibrillation. This has now reverted. She had an echocardiogram, which shows a moderately enlarged left atrium, but normal left ventricular systolic function. She has a thick myocardium. There are no pericardial effusions. Given her atrial fibrillation, she may be a candidate for anticoagulation; however, given her remote history of falls, history of having blood transfusions, and feeble status, it was felt that anticoagulation may be more risk than benefit, thus for now, will not be anticoagulated, although option was given to the patient and her caregiver to discuss with other family members. Currently, she is stabilizing and improving. From a cardiac standpoint, she is stable. We will continue current pulmonary therapy, but no specific cardiac issues are present at this time. She is being gently diuresed. She will be reevaluated for rhythm later. Thank you for allowing me to participate in management of this lady. TID: [id number] RECEIPT: [id number]
[2024-07-14] MEDS: IpraTROPium 0.5 MG/2.5 ML INH IH ONE (23:22)
[2024-07-15] VITALS (17 sets, daily range): BP systolic 117–146; BP diastolic 43–96; PULSE 60–86; RESP 18–31; TEMP 96.9–98.8; O2SAT 94–98
--- NOTE | 2024-07-15 01:40 | NUR ---
Sputum cx sent at this time to lab.
--- NOTE | 2024-07-15 01:57 | NUR ---
sputum collected by nurse and sent to lab by nurse Addendum: 07/15/24 at 0157 by ARELI ROSA, RT RT Amended: Links added.
[2024-07-15 02:11] LABS: ABG BASE EXCESS 1.8 mmol/L (-2.0-3.0); ABG HCO3 28.2 mmol/L (21.0-28.0); ABG OXYGEN SATURATION 96.2 % (94.0-98.0); ABG PCO2 54 mmHg (32-45); ABG PH 7.333 (7.350-7.450); CARBON MONOXIDE 0.3 % (0.5-1.5); DEVICE COMMENT RR; HHb 3.8; PO2, ARTERIAL BG 86.1 mmHg (83.0-108.0); VENT MODE, BG BIPAP 12 6 (ROOM AIR)
--- NOTE | 2024-07-15 02:31 | NUR ---
BiPAP settings Pt tolerating BiPAP, settings at 12/6 rate 20 fiO2 35%. Notified Fariba Paulson DECAY CONTROL OPERATOR of current settings (order for rate of 16). Ordered 0400 ABG to be collected now, changed to ABG+. RT made aware. Collected by RT. Results showed to Fariba estrella. Rate changed to 26 by RT, order updated. RT aware of 0700 repeat ABG.
[2024-07-15 04:06] LABS: BASOPHILS # (AUTO) 0.01 K/uL (0.00-0.20); BASOPHILS % (AUTO) 0.1 % (0.0-5.0); HEMATOCRIT 27.2 % (36-48); IMMATURE GRANULOCYTE ABSOLUTE 0.12 K/uL (0-1); LYMPHOCYTES # (AUTO) 0.8 K/uL (1.0-4.8); LYMPHOCYTES % (AUTO) 11.8 % (21.0-51.0); MEAN CORPUSCULAR HEMOGLOBIN 25.9 pg (27.0-33.0); MEAN CORPUSCULAR HGB CONC 30.1 g/dL (32.0-36.0); MEAN CORPUSCULAR VOLUME 85.8 fL (79-99); MONOCYTES # (AUTO) 0.3 K/uL (0.1-1.0); MONOCYTES % (AUTO) 4.4 % (3.0-13.0); NEUTROPHILS # (AUTO) 5.8 K/uL (1.8-7.7); PLATELET COUNT (AUTO) 261 K/uL (130-400); RED BLOOD CELL COUNT(AUTO) 3.17 MIL/uL (4.00-5.50); RED CELL DISTRIBUTION WIDTH 18.5 % (11.0-15.5); WHITE BLOOD COUNT (AUTO) 7.1 K/uL (4.8-10.8)
[2024-07-15 04:28] LABS: % IRON SATURATION 4.4 % (22-44)
[2024-07-15 04:42] LABS: HEMOGLOBIN A1C 5.6 % (4.0-6.0)
[2024-07-15 04:57] LABS: ALANINE AMINOTRANSFERASE 20 U/L (12-78); ALBUMIN 2.4 g/dL (3.5-5.0); ASPARTATE AMINOTRANSFERASE 28 U/L (10-37); BILIRUBIN,TOTAL 0.2 mg/dL (0.2-1.0); CARBON DIOXIDE 32 mmol/L (21-32); CHLORIDE 107 mmol/L (101-111); CREATINE KINASE, TOTAL 62 U/L (21-232); CREATININE 1.1 mg/dL (0.5-1.0); FERRITIN 28 ng/mL (15-150); GLOMERULAR FILTR. RATE CALC 48 mL/min (>90); GLUCOSE,RANDOM 143 mg/dL (70-105); POTASSIUM 4.8 mmol/L (3.5-5.1); SODIUM SERUM 142 mmol/L (136-145); THYROID STIMULATING HORMONE 0.23 uIU/mL (0.36-3.74); TOTAL PROTEIN, SERUM 6.5 g/dL (6.0-8.3); UREA NITROGEN, BLOOD 29 mg/dL (7-18)
--- NOTE | 2024-07-15 05:32 | EKG ---
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
[2024-07-15] MEDS: IpraTROPium 0.5 MG/2.5 ML INH IH SCH (07:06)
[2024-07-15 07:47] LABS: ABG BASE EXCESS 0.4 mmol/L (-2.0-3.0); ABG HCO3 27.7 mmol/L (21.0-28.0); ABG OXYGEN SATURATION 97.4 % (94.0-98.0); ABG PCO2 55 mmHg (32-45); ABG PH 7.317 (7.350-7.450); PO2, ARTERIAL BG 106.8 mmHg (83.0-108.0); VENT MODE, BG BIPAP 12.6 (ROOM AIR)
[2024-07-15] MEDS: LISINOPRIL 10 MG TABLET PO SCH (09:00)
[2024-07-15] MEDS: monteLUKAST sodIUM 10 MG TAB PO SCH (09:00)
--- NOTE | 2024-07-15 09:33 | HMCIMG ---
Exam Type: CHEST 1VW Clinical Information: assess for improvement of pulm infitrates Comparison: None Findings: The lungs are clear of infiltrates. The heart is enlarged. Bony and soft tissue structures of the chest wall are unremarkable. IMPRESSION: Cardiomegaly. Clear lungs.
--- NOTE | 2024-07-15 10:03 | NUR ---
Hold PT today per RN; d/t pt unable to tolerate activity without Bipap. PT team advised.
[2024-07-15] MEDS: ENOXAPARIN SODIUM 30 MG/0.3 ML SQ SCH (10:35)
[2024-07-15] MEDS: THIAMINE HCL 100 MG/ML 2ML VIAL IVP SCH (10:35)
[2024-07-15] MEDS ORDERED: FE F1CAP8 PO (10:40)
--- NOTE | 2024-07-15 13:18 | PN ---
[facility] PROGRESS NOTE Date of Service: Jul 15, 2024 Time of Service: 13:12 SUBJECTIVE: 07/15 patient seen at bedside, no acute events overnight. She is still remains on BiPAP, saturating at 98%. Hemoglobin decreased from 9.1 down to 8.2, creatinine increased from 0.9 up to 1.1, troponins are downtrending, TSH mildly decreased at 0.23, we will order a free T4, remainder of her labs are relatively unremarkable. Further care per pulmonology recommendations. REVIEW OF SYSTEMS 12 point review of systems negative unless noted in HPI PHYSICAL EXAM GENERAL APPEARANCE: The patient is awake, alert, and oriented, in no acute cardiopulmonary distress. NEUROLOGICAL: Cranial nerves II-XII grossly intact. Motor is 5/5 in bilateral upper and lower extremities proximal to distal. No sensory deficits. HEENT: Face is symmetric. Pupils are equal and reactive. Extraocular movements are intact. NECK: Supple. No JVD. No thyromegaly. No submental, submandibular, pre-/postauricular, occipital or supraclavicular lymphadenopathy. CHEST: Normal chest expansion. No Telemetry. LUNGS: Absence of any rales, rhonchi or any wheezing. CARDIOVASCULAR: Regular. S1 and S2 normal. No appreciable rubs, murmurs or gallops. ABDOMEN: Soft, nontender, and nondistended. There is no rebound, voluntary guarding, or rigidity. : Deferred. No Nelson. EXTREMITIES: Non-edematous and not cyanotic. No clubbing. Good capillary refill. SKIN: No skin breakdown. Vital Signs (last 8hr) Date Time Temp Pulse Resp B/P (MAP) Pulse Ox O2 Delivery O2 Flow Rate FiO2 07/15/24 12:23 97.0 65 18 117/80 98 BIPAP 07/15/24 12:02 69 30 40 07/15/24 11:43 80 26 07/15/24 09:30 72 28 40 07/15/24 08:00 97.5 60 18 127/52 98 BIPAP 07/15/24 08:00 98 Bi-PAP+ 35 07/15/24 07:12 64 28 40 07/15/24 07:12 76 29 LABS: Laboratory: Test 07/15/24 12:02 07/15/24 07:45 07/15/24 03:45 07/15/24 02:09 Range/Units Whole Blood Glucose 129 H 70-110 MG/DL Blood Gas Specimen Type Arterial Arterial Blood pH 7.317 L 7.350-7.450 Arterial Blood Partial Pressure CO2 55 H 32-45 mmHg Arterial Blood Partial Pressure O2 106.8 83.0-108.0 mmHg Arterial Blood HCO3 27.7 21.0-28.0 mmol/L Arterial Blood Oxygen Saturation 97.4 94.0-98.0 % Arterial Blood Base Excess 0.4 -2.0-3.0 mmol/L Blood Gas Temperature 37.0 35.5-37.0 CELSIUS Blood Gas Respiration Rate 26.0 min. Blood Gas Vent Mode BIPAP 12.6 ROOM AIR FiO2 40.0 % Blood Gas Specimen Comment RR MICHELLE SCALES White Blood Count 7.1 4.8-10.8 K/uL Red Blood Count 3.17 L 4.00-5.50 MIL/uL Hemoglobin 8.2 L 12.0-16.0 g/dL Hematocrit 27.2 L 36-48 % Mean Corpuscular Volume 85.8 79-99 fL Mean Corpuscular Hemoglobin 25.9 L 27.0-33.0 pg Mean Corpuscular Hemoglobin Concent 30.1 L 32.0-36.0 g/dL Red Cell Distribution Width 18.5 H 11.0-15.5 % Platelet Count 261 130-400 K/uL Mean Platelet Volume 10.4 7.5-10.5 fL Immature Granulocyte % (Auto) 1.7 H 0-1 % Neutrophils (%) (Auto) 82.0 H 40.0-77.0 % Lymphocytes (%) (Auto) 11.8 L 21.0-51.0 % Monocytes (%) (Auto) 4.4 3.0-13.0 % Eosinophils (%) (Auto) 0.0 0.0-8.0 % Basophils (%) (Auto) 0.1 0.0-5.0 % Neutrophils # (Auto) 5.8 1.8-7.7 K/uL Lymphocytes # (Auto) 0.8 L 1.0-4.8 K/uL Monocytes # (Auto) 0.3 0.1-1.0 K/uL Eosinophils # (Auto) 0.00 0.00-0.70 K/uL Basophils # (Auto) 0.01 0.00-0.20 K/uL Absolute Immature Granulocyte (auto 0.12 0-1 K/uL Nucleated Red Blood Cells 0.0 0.0-0.19 % Reticulocyte Count (auto) 0.11035 0.42-2.23 % Immature Reticulocyte Fraction 15.70 H 0.18-0.48 % Sodium Level 142 136-145 mmol/L Potassium Level 4.8 3.5-5.1 mmol/L Chloride Level 107 101-111 mmol/L Carbon Dioxide Level 32 21-32 mmol/L Blood Urea Nitrogen 29 H 7-18 mg/dL Creatinine 1.1 H 0.5-1.0 mg/dL Glomerular Filtration Rate Calc 48 >90 mL/min Random Glucose 143 H 70-105 mg/dL Hemoglobin A1c 5.6 4.0-6.0 % Estimated Average Glucose (eAG) 114 70-126 mg/dL Total Calcium 8.3 L 8.5-10.1 mg/dL Magnesium Level 2.00 1.80-2.40 mg/dL Iron Level 14 #L 50-170 mcg/dL Total Iron Binding Capacity 314 250-450 mcg/dL Percent Iron Saturation 4.4 L 22-44 % Ferritin 28 15-150 ng/mL Total Bilirubin 0.2 0.2-1.0 mg/dL Aspartate Amino Transf (AST/SGOT) 28 10-37 U/L Alanine Aminotransferase (ALT/SGPT) 20 # 12-78 U/L Alkaline Phosphatase 90 50-136 U/L Total Creatine Kinase 62 21-232 U/L Troponin I High Sensitivity 57 *H 4-50 ng/L Total Protein 6.5 6.0-8.3 g/dL Albumin 2.4 L 3.5-5.0 g/dL Vitamin B12 Level 704 193-986 pg/mL Folic Acid (LAB) > 20.00 H 2-20 ng/mL Procalcitonin 0.22 0.05-0.5 ng/mL Thyroid Stimulating Hormone (TSH) 0.23 #L 0.36-3.74 uIU/mL Hemoglobin (Blood Gas) 9.4 L 12.0-16.0 g/dL Sodium (Blood Gas) 139 136-145 MMOL/L Bedside Potassium (Blood Gas) 4.5 3.4-4.5 MMOL/L Bedside Chloride (Blood Gas) 103 98-107 MMOL/L Bedside Glucose (Blood Gas) 140 H 65-95 MG/DL Bedside Ionized Calcium (Blood Gas) 1.16 1.15-1.33 MMOL/L Bedside Lactic Acid (Blood Gas) 1.21 H 0.36-0.75 MMOL/L Test 07/14/24 14:45 07/14/24 13:05 07/14/24 11:59 07/14/24 10:06 Range/Units Urine Color LIGHT-YELLOW YELLOW Urine Appearance CLEAR CLEAR Urine pH 5.5 5.0-8.0 Urine Specific [place] 1.009 1.001-1.031 Urine Protein 100 H NEGATIVE mg/dL Urine Glucose (UA) NEGATIVE NEGATIVE mg/dL Urine Ketones NEGATIVE NEGATIVE mg/dL Urine Occult Blood SMALL H NEGATIVE Urine Nitrate 1+ H NEGATIVE Urine Bilirubin NEGATIVE NEGATIVE mg/dL Urine Urobilinogen 0.2 0.2-1.0 mg/dL Urine Leukocyte Esterase 75 H NEGATIVE Lynda/uL Urine RBC 0-1 0-1 /HPF Urine WBC 6-10 H 0-1 /HPF Urine Squamous Epithelial Cells RARE 0-2 /HPF Urine Bacteria MANY None Seen /HPF Influenza Type A Antigen Negative For Type A NEGATIVE Influenza Type B Antigen Negative For Type B NEGATIVE SARS-CoV-2, RNA, NAAT NEGATIVE SARS CoV-2 NEGATIVE Lactic Acid Level 1.2 0.8-2.5 mmol/L Venous Blood pH 7.271 L 7.320-7.430 Venous Blood pCO2 at Patient Temp 64 *H 38-54 Venous Blood pO2 at Patient Temp 44.3 23.0-48.0 mmHg Venous Blood HCO3 28.8 22.0-29.0 Venous Blood Base Excess 0.2 -2.0-3.0 Blood Gas Flow-by 4.00 0.00-15.00 L/min Test 07/14/24 10:03 Range/Units White Cell Morphology Comment See comments Red Blood Cell Morphology See comments Erythrocyte Sedimentation Rate 105 H 0-30 MM/HR Prothrombin Time 11.0 9.6-11.6 SEC Prothromb Time International Ratio 0.98 0.85-1.15 Activated Partial Thromboplast Time 30.5 26.3-35.5 SEC Direct Bilirubin 0.1 0.0-0.3 mg/dL C-Reactive Protein, Quantitative 32.00 H 0.5-3.0 mg/L B-Type Natriuretic Peptide 674 H 0-100 pg/mL Current Medications Medications (Trade) Dose Ordered Sig/Parker Route PRN Reason Start Time Stop Time Status Last Admin Dose Admin Acetaminophen 100 ml @ 200 mls/hr Q12H PRN IVPB PAIN/ FEVER, 1-5 07/14/24 13:00 08/13/24 12:59 Acetaminophen (acetaMINOPHEN) 1,000 mg Q12H PRN IVPB PAIN/ FEVER, 1-5 07/14/24 12:00 07/14/24 12:47 DC Albuterol (DUOneb) 1 udvial [id number] IH 07/14/24 12:00 07/14/24 21:49 DC 07/14/24 19:15 1 UDVIAL Budesonide (Pulmicort 0.5 Mg/2ml) 0.5 mg BID IH 07/14/24 21:00 08/13/24 11:59 07/15/24 07:06 0.5 MG Budesonide (Pulmicort 0.5 Mg/2ml) 0.5 mg Q12H IH 07/14/24 12:00 07/14/24 12:58 DC Cefepime HCl (MAXipime 2 gm vial) 2 gm Q12H IVPB 07/14/24 12:00 07/24/24 11:59 07/15/24 13:04 2 GM Doxycycline Hyclate 250 ml @ 125 mls/hr Q12H IV 07/14/24 13:00 07/24/24 12:59 07/15/24 00:52 125 MLS/HR Enoxaparin Sodium (Lovenox) 30 mg DAILY SQ 07/15/24 09:00 08/14/24 08:59 07/15/24 10:35 30 MG Furosemide (LASix 20MG VIAL) 20 mg Q12H IV 07/14/24 12:30 08/13/24 12:29 07/15/24 13:04 20 MG Guaifenesin/ Dextromethorphan (RobiTUSSin DM 200/20MG 10ML) 10 ml Q6H PRN PO COUGH 07/14/24 17:30 08/13/24 17:29 Insulin Human Regular (humuLIN R 100 UNIT/ML 3ML) INSULIN SLIDING SCAL... ACHS SQ 07/14/24 16:30 08/13/24 16:29 Ipratropium [place] (AtrovENT UD) 0.5 MG [id number] IH 07/15/24 00:00 08/14/24 00:00 07/15/24 11:41 0.5 MG Lisinopril (Prinivil 10mg) 10 mg DAILY PO 07/15/24 09:00 08/14/24 08:59 Magnesium Sulfate 50 ml @ 0 mls/hr PROTOCOL IV 07/14/24 12:00 08/13/24 11:59 Methylprednisolone Sodium Succinate (Solu-medROL 40MG) 40 mg Q8H IVP 07/14/24 23:00 08/13/24 22:59 07/15/24 06:22 40 MG Methylprednisolone Sodium Succinate (Solu-medROL 40MG) 60 mg Q8H IVP 07/14/24 15:00 07/14/24 21:46 DC 07/14/24 16:09 60 MG Montelukast Sodium (SinguLAIR) 10 mg DAILY PO 07/15/24 09:00 08/14/24 08:59 Ondansetron HCl (zoFRAN 4MG INJ) 4 mg Q6H PRN IVP NAUSEA/VOMITING 07/14/24 12:00 08/13/24 11:59 Pantoprazole Sodium (PROTonix 40MG INJ) 40 mg Q24H IVP 07/14/24 12:00 08/13/24 11:59 07/15/24 13:04 40 MG Potassium Chloride 100 ml @ 100 mls/hr AD PRN IV POTASSIUM PROTOCOL 07/14/24 12:00 08/13/24 11:59 Potassium Chloride (K-Dur/Klor-Con 20meq) 20 meq AD PRN PO POTASSIUM PROTOCOL 07/14/24 12:00 08/13/24 11:59 Potassium Chloride (KCl 10% Elixir 20meq/15ml) 20 meq AD PRN PO POTASSIUM PROTOCOL 07/14/24 12:00 08/13/24 11:59 Thiamine HCl (Vitamin B-1) 100 mg DAILY IVP 07/15/24 09:00 07/18/24 09:00 07/15/24 10:35 100 MG Vancomycin HCl 250 ml @ 125 mls/hr Q24H IV 07/15/24 15:00 07/15/24 10:52 DC Vancomycin HCl (Vancomycin Protocol) 1 each AD IV 07/14/24 12:00 07/15/24 10:54 DC DIAGNOSTICS / RADIOLOGY: [ ] ASSESSMENT: Severe acute hypoxemic respiratory failure, POA Acute hypercapnic respiratory failure with respiratory acidosis, POA Acute COPD exacerbation, POA Suspected developing community-acquired pneumonia, POA Rule out diastolic heart failure exacerbation, POA Type 2 NSTEMI, secondary to underlying respiratory failure, POA Hypertension, POA Hyperlipidemia, POA Moderate protein calorie malnutrition, POA Frailty/debility/deconditioning, POA Underlying history of anemia, POA PLAN: Continue with CPAP therapy Continue with Solu-Medrol Continue broad-spectrum antibiotics with cefepime/doxycycline Cultures pending we will follow up Continue Lasix 20 mg q.12 hours Echo pending we will follow up We will request consultation with Cardiology and pulmonology Continue aspiration precautions Home medications will be reconciled and updated Disposition: Pending improvement in clinical status MARCELA BOONE MD Jul 15, 2024 13:18
[2024-07-15] MEDS ORDERED: VANCOMYCIN 1.25 GM/250 ML BAG 250 ML IV SCH (15:00)
--- NOTE | 2024-07-15 16:55 | NUR ---
D/C PLAN CM spoke to patient's niece Kim Newberry [phone] regarding d/c planning. Patient on and off bipap. States she is patient's MPOA. Reports patient was semi independent with ADLs and lives with caregiver named Tiffany Erazo [phone]. States she assists patient with ADLs. Denies having any home health. Reports patient has walker at home. States patient has history of having home o2 but unable to recall if DME is still in home. Plan for now is to return to same setting. CM to f/u for possible short term rehab or o2 needs. Niece pending to email advance directives and MPOA. Previous copy printed from one content and flagged in chart. Addendum: 07/15/24 at 1659 by ORLANDO IRIZARRY Amended: Links added.
--- NOTE | 2024-07-15 18:00 | NUR ---
MULTIPLE ATTEMPTS TO REACH SPEECH THERAPY FOR SPEECH EVALUATION BUT NO ANSWER X 3. DR. LOPEZ NOTIFIED AND HE STATED TO NOTIFY SPEECH TOMORROW AM.
--- NOTE | 2024-07-15 18:55 | PN ---
[facility] PROGRESS NOTE Date Patient Seen: Jul 15, 2024 Time of Visit: 18:49 Supervising Physician: YEE LOPEZ MD Primary Care Physician: Mary Aguilera MD Outpatient Specialists: Inpatient Consults: DR ERNESTINE MORA, DR CHAPITO LAUGHLIN PROBLEM LIST: Acute hypercarbic hypoxic respiratory failure on admission Acute COPD exacerbation Community acquired pneumonia Acute on chronic diastolic heart failure Moderate pulmonary hypertension 46 mm/Hg Acute non ST elevation myocardial infarction type 2 secondary to metabolic demand on admission Underlying hyperlipidemia Anemia of chronic disease INTERVAL HISTORY: 07/15 Patient is now off BiPAP, he was on BiPAP since last night and early today She is on 5 L/min nasal canula she feels better right now, still tired, still with orthopnea no cough, no congestion has generalized weakness has fatigue and dyspnea poor appetite no fevers REVIEW OF SYSTEMS: 12 point ROS reviewed with patient. Pertinent positives mentioned above. Otherwise negative. PHYSICAL EXAM: GENERAL: alert, weak, awake oriented x 2 HEENT: EOMI, Sclera non icteric, moist mucosa NECK: Supple, no JVD, trachea midline LUNGS: bilateral expiratory wheezing, bilateral crackles at both bases HEART: Regular rate and rhythm. Normal S1 and S2, without murmurs ABD: Abdomen soft, nontender. Bowel sounds present EXT: No clubbing cyanosis or edema NEURO: Alert and oriented to person, follows commands Vital Signs (last 8hr) Date Time Temp Pulse Resp B/P (MAP) Pulse Ox O2 Delivery O2 Flow Rate FiO2 07/15/24 16:48 98.4 81 18 146/70 98 Nasal Cannula 2.0 07/15/24 13:00 79 24 N/Cannula Low lpm 3.0 32 07/15/24 12:23 97.0 65 18 117/80 98 BIPAP 07/15/24 12:02 69 30 40 07/15/24 11:43 80 26 LABS: Hematology Labs: Test 07/15/24 03:45 07/14/24 10:03 Range/Units White Blood Count 7.1 4.8-10.8 K/uL Red Blood Count 3.17 L 4.00-5.50 MIL/uL Hemoglobin 8.2 L 12.0-16.0 g/dL Hematocrit 27.2 L 36-48 % Mean Corpuscular Volume 85.8 79-99 fL Mean Corpuscular Hemoglobin 25.9 L 27.0-33.0 pg Mean Corpuscular Hemoglobin Concent 30.1 L 32.0-36.0 g/dL Red Cell Distribution Width 18.5 H 11.0-15.5 % Platelet Count 261 130-400 K/uL Mean Platelet Volume 10.4 7.5-10.5 fL Immature Granulocyte % (Auto) 1.7 H 0-1 % Neutrophils (%) (Auto) 82.0 H 40.0-77.0 % Lymphocytes (%) (Auto) 11.8 L 21.0-51.0 % Monocytes (%) (Auto) 4.4 3.0-13.0 % Eosinophils (%) (Auto) 0.0 0.0-8.0 % Basophils (%) (Auto) 0.1 0.0-5.0 % Neutrophils # (Auto) 5.8 1.8-7.7 K/uL Lymphocytes # (Auto) 0.8 L 1.0-4.8 K/uL Monocytes # (Auto) 0.3 0.1-1.0 K/uL Eosinophils # (Auto) 0.00 0.00-0.70 K/uL Basophils # (Auto) 0.01 0.00-0.20 K/uL Absolute Immature Granulocyte (auto 0.12 0-1 K/uL Nucleated Red Blood Cells 0.0 0.0-0.19 % Reticulocyte Count (auto) 0.55675 0.42-2.23 % Immature Reticulocyte Fraction 15.70 H 0.18-0.48 % White Cell Morphology Comment See comments Red Blood Cell Morphology See comments Erythrocyte Sedimentation Rate 105 H 0-30 MM/HR Chemistry Labs: Test 07/15/24 16:40 07/15/24 03:45 07/14/24 11:59 07/14/24 10:03 Range/Units Whole Blood Glucose 128 H 70-110 MG/DL Sodium Level 142 136-145 mmol/L Potassium Level 4.8 3.5-5.1 mmol/L Chloride Level 107 101-111 mmol/L Carbon Dioxide Level 32 21-32 mmol/L Blood Urea Nitrogen 29 H 7-18 mg/dL Creatinine 1.1 H 0.5-1.0 mg/dL Glomerular Filtration Rate Calc 48 >90 mL/min Random Glucose 143 H 70-105 mg/dL Hemoglobin A1c 5.6 4.0-6.0 % Estimated Average Glucose (eAG) 114 70-126 mg/dL Total Calcium 8.3 L 8.5-10.1 mg/dL Magnesium Level 2.00 1.80-2.40 mg/dL Iron Level 14 #L 50-170 mcg/dL Total Iron Binding Capacity 314 250-450 mcg/dL Percent Iron Saturation 4.4 L 22-44 % Ferritin 28 15-150 ng/mL Total Bilirubin 0.2 0.2-1.0 mg/dL Aspartate Amino Transf (AST/SGOT) 28 10-37 U/L Alanine Aminotransferase (ALT/SGPT) 20 # 12-78 U/L Alkaline Phosphatase 90 50-136 U/L Total Creatine Kinase 62 21-232 U/L Troponin I High Sensitivity 57 *H 4-50 ng/L Total Protein 6.5 6.0-8.3 g/dL Albumin 2.4 L 3.5-5.0 g/dL Vitamin B12 Level 704 193-986 pg/mL Folic Acid (LAB) > 20.00 H 2-20 ng/mL Procalcitonin 0.22 0.05-0.5 ng/mL Thyroid Stimulating Hormone (TSH) 0.23 #L 0.36-3.74 uIU/mL Lactic Acid Level 1.2 0.8-2.5 mmol/L Direct Bilirubin 0.1 0.0-0.3 mg/dL C-Reactive Protein, Quantitative 32.00 H 0.5-3.0 mg/L B-Type Natriuretic Peptide 674 H 0-100 pg/mL Coagulation Labs: Test 07/14/24 10:03 Range/Units Prothrombin Time 11.0 9.6-11.6 SEC Prothromb Time International Ratio 0.98 0.85-1.15 Activated Partial Thromboplast Time 30.5 26.3-35.5 SEC DIAGNOSTICS / RADIOLOGY RESULTS: [ Imaging scans reviewed ] PLAN pending speech language pathology evaluation for swallow study continue on oxygen continue on BiPAP patient is now DNR/DNI aspiration precautions continue IV steroids continue IV antibiotics PT and OT evaluation NEURO: Minimize central acting medications as possible. Maintain fall precautions, adequate lighting during the day PULMONARY: Supplemental 02 as needed. Maintain aspiration precautions at all times CARDIOVASCULAR: Follow hemodynamics. Vital signs per facility protocol GI & NUTRITION: Continue with nutritional support. Continue stool softeners and laxatives as needed. KIDNEYS & ELECTROLYTES: Strict monitoring of intake, output and overall fluid balance. Avoid nephrotoxic medications to the extent possible. Medications to be dosed according to renal function. Monitor electrolytes and replace as needed ENDOCRINE: Maintain blood glucose between 100-180 at all times. Hypoglycemia protocol in place INFECTIOUS DISEASE: Trend temperature, WBC and procalcitonin level Follow cultures, deescalate antibiotics as soon as possible. Panculture if new onset fever ONCOLOGY/HEMATOLOGY/COAGULATION: Monitor for s/s of bleeding Monitor hemoglobin, coagulation studies as needed SKIN: Pressure ulcer prevention per facility protocol Specialty mattress ORTHO/REHAB: Continue PT/OT Prophylaxis: Continue GI and DVT prophylaxis Code Status: Full Resuscitation Disposition: as per primary Other: Total patient care time exceeds 35 minutes excluding all procedures. ATTESTATION BY PHYSICIAN Note scribed by Dustin Molina, clinical medical assistant I can attest to the clinical accuracy of the note YEE LOPEZ MD I personally scribed for [facility] on 07/15/24 at 18:55. Electronically submitted by Dustin Molina ([email or web address]). YEE LOPEZ MD Jul 15, 2024 18:55
[2024-07-16] VITALS (15 sets, daily range): BP systolic 134–164; BP diastolic 52–81; PULSE 55–89; RESP 18–28; TEMP 97.3–98.3; O2SAT 94–99
[2024-07-16 03:52] LABS: BASOPHILS # (AUTO) 0.03 K/uL (0.00-0.20); BASOPHILS % (AUTO) 0.1 % (0.0-5.0); IMMATURE GRANULOCYTE ABSOLUTE 0.14 K/uL (0-1); LYMPHOCYTES % (AUTO) 4.7 % (21.0-51.0); MEAN CORPUSCULAR HEMOGLOBIN 26.3 pg (27.0-33.0); MEAN CORPUSCULAR HGB CONC 31.4 g/dL (32.0-36.0); MEAN CORPUSCULAR VOLUME 83.8 fL (79-99); MONOCYTES # (AUTO) 0.7 K/uL (0.1-1.0); MONOCYTES % (AUTO) 3.2 % (3.0-13.0); NEUTROPHILS # (AUTO) 18.5 K/uL (1.8-7.7); NEUTROPHILS % (AUTO) 91.3 % (40.0-77.0); PLATELET COUNT (AUTO) 309 K/uL (130-400); RED BLOOD CELL COUNT(AUTO) 3.34 MIL/uL (4.00-5.50); WHITE BLOOD COUNT (AUTO) 20.3 K/uL (4.8-10.8)
[2024-07-16 03:53] LABS: ABG BASE EXCESS 3.4 mmol/L (-2.0-3.0); ABG HCO3 28.4 mmol/L (21.0-28.0); ABG OXYGEN SATURATION 95.6 % (94.0-98.0); ABG PCO2 45 mmHg (32-45); ABG PH 7.423 (7.350-7.450); PO2, ARTERIAL BG 77.3 mmHg (83.0-108.0); VENT MODE, BG BIPAP12,6 (ROOM AIR)
[2024-07-16 04:07] LABS: ALBUMIN 2.5 g/dL (3.5-5.0); BILIRUBIN,TOTAL 0.3 mg/dL (0.2-1.0); CREATININE 1.1 mg/dL (0.5-1.0); MAGNESIUM 2.2 mg/dL (1.80-2.40); PHOSPHORUS 3.6 mg/dL (2.5-4.9); POTASSIUM 4.3 mmol/L (3.5-5.1); TOTAL PROTEIN, SERUM 6.8 g/dL (6.0-8.3)
--- NOTE | 2024-07-16 09:44 | HMCIMG ---
Exam Type: CHEST 1VW Clinical Information: chf Comparison: None Findings: The lungs are clear of infiltrates. The heart is enlarged. Bony and soft tissue structures of the chest wall are unremarkable. IMPRESSION: Cardiomegaly. Clear lungs.
--- NOTE | 2024-07-16 12:00 | CONS ---
CONSULTATION NOTE Date of Service: Jul 16, 2024 Reason for Consultation: [ Possible rash & wounds of buttocks ] Requesting Physician: [Hospitalist ] HISTORY OF PRESENT ILLNESS: [ 07/16/24 88 yo female brought to the ER with the complaints of productive cough, shortness of breath, lightheadedness. Wound care consulted for possible rash of pubic area and possible wounds of the buttocks. Primary nurse Neci at visit. Family not present during visit. ] REVIEW OF SYSTEMS CONSTITUTIONAL: Denies fever, chills, or fatigue. HEAD/FACE: No signs of trauma. EENT: Denies eye pain, blurred vision, double vision, or light sensitivity. RESPIRATORY: Denies cough, wheezing; Shortness of breath CARDIOVASCULAR: Denies chest pain, palpitation, syncope GASTROINTESTINAL/ABDOMINAL: Denies abdominal pain, constipation, diarrhea, nausea or vomiting GENITOURINARY: Denies dysuria or hematuria. MUSCULOSKELETAL: Denies joint pain, tenderness, or trauma. INTEGUMENTARY: Denies rash or itchiness NEUROLOGICAL/PSYCH: Denies anxiety, depression, heat or cold intolerance. PAST MEDICAL HISTORY: [ hypertension, anemia, uterine prolapse, COPD ] PAST SURGICAL HISTORY: [ CABG,Cardiac catheterization , 2022, Peritoneal dialysis placement ] PAST SOCIAL HISTORY: [chronic ex-smoker ] FAMILY HISTORY: [ ] Coded Allergies: No Known Drug Allergies (Verified Allergy, Unknown, 03/30/21) PHYSICAL EXAM EYES: Anicteric. Pupils equal and reactive. HENT: No oral thrush seen, moist Oral mucosa NECK: Supple, no JVD or thyromegaly. LUNGS: Good air entry. No rales, no rhonchi. CARDIOVASCULAR: S1, S2 regular. No murmur heard. ABDOMEN: Soft, non tender, bowel sounds present, no organomegaly CENTRAL NERVOUS SYSTEM: Awake, alert, oriented x 3. No focal deficits. SKIN: No rashes, no swelling. Minimal rash of inguinal region and under breasts, Buttocks skin intact, slightly irritated, no erythema LYMPHATICS: No peripheral lymphadenopathy MUSCULOSKELETAL: No joint swelling, erythema or tenderness. EXTREMITIES: No cyanosis or clubbing BACK: No deformity, no pressure ulcer. GENITOURINARY: No dysuria or hematuria Vital Sign (Last 24 Hours) 07/16/24 07/16/24 11:45 11:54 Temp 98.2 Pulse 72 Resp 18 B/P (MAP) 164/60 Pulse Ox 98 O2 Delivery Nasal Cannula O2 Flow Rate 3.0 FiO2 32 Intake & Output (last 24hrs) 07/15/24 07/15/24 07/16/24 15:00 23:00 07:00 Intake Total 100.0 ml 250.0 ml Output Total 1000 ml 800 ml Balance 100.0 ml -750.0 ml -800 ml LABS: Laboratory: Test 07/16/24 11:20 07/16/24 03:52 07/16/24 03:36 07/15/24 03:45 Range/Units Whole Blood Glucose 134 H 70-110 MG/DL Blood Gas Specimen Type Arterial Arterial Blood pH 7.423 7.350-7.450 Arterial Blood Partial Pressure CO2 45 32-45 mmHg Arterial Blood Partial Pressure O2 77.3 L 83.0-108.0 mmHg Arterial Blood HCO3 28.4 H 21.0-28.0 mmol/L Arterial Blood Oxygen Saturation 95.6 94.0-98.0 % Arterial Blood Base Excess 3.4 H -2.0-3.0 mmol/L Blood Gas Temperature 37.0 35.5-37.0 CELSIUS Blood Gas Respiration Rate 26.0 min. Blood Gas Vent Mode BIPAP12,6 ROOM AIR FiO2 30.0 % Blood Gas Specimen Comment RB,RN KHANH White Blood Count 20.3 #H 4.8-10.8 K/uL Red Blood Count 3.34 L 4.00-5.50 MIL/uL Hemoglobin 8.8 L 12.0-16.0 g/dL Hematocrit 28.0 L 36-48 % Mean Corpuscular Volume 83.8 79-99 fL Mean Corpuscular Hemoglobin 26.3 L 27.0-33.0 pg Mean Corpuscular Hemoglobin Concent 31.4 L 32.0-36.0 g/dL Red Cell Distribution Width 19.0 H 11.0-15.5 % Platelet Count 309 130-400 K/uL Mean Platelet Volume 10.3 7.5-10.5 fL Immature Granulocyte % (Auto) 0.7 0-1 % Neutrophils (%) (Auto) 91.3 H 40.0-77.0 % Lymphocytes (%) (Auto) 4.7 L 21.0-51.0 % Monocytes (%) (Auto) 3.2 3.0-13.0 % Eosinophils (%) (Auto) 0.0 0.0-8.0 % Basophils (%) (Auto) 0.1 0.0-5.0 % Neutrophils # (Auto) 18.5 H 1.8-7.7 K/uL Lymphocytes # (Auto) 1.0 1.0-4.8 K/uL Monocytes # (Auto) 0.7 0.1-1.0 K/uL Eosinophils # (Auto) 0.00 0.00-0.70 K/uL Basophils # (Auto) 0.03 0.00-0.20 K/uL Absolute Immature Granulocyte (auto 0.14 0-1 K/uL Nucleated Red Blood Cells 0.0 0.0-0.19 % Sodium Level 141 136-145 mmol/L Potassium Level 4.3 3.5-5.1 mmol/L Chloride Level 106 101-111 mmol/L Carbon Dioxide Level 31 21-32 mmol/L Blood Urea Nitrogen 47 H 7-18 mg/dL Creatinine 1.1 H 0.5-1.0 mg/dL Glomerular Filtration Rate Calc 48 >90 mL/min Random Glucose 138 H 70-105 mg/dL Lactic Acid Level 1.8 0.8-2.5 mmol/L Total Calcium 8.7 8.5-10.1 mg/dL Phosphorus Level 3.6 2.5-4.9 mg/dL Magnesium Level 2.20 1.80-2.40 mg/dL Total Bilirubin 0.3 # 0.2-1.0 mg/dL Aspartate Amino Transf (AST/SGOT) 24 10-37 U/L Alanine Aminotransferase (ALT/SGPT) 19 12-78 U/L Alkaline Phosphatase 90 50-136 U/L Total Protein 6.8 6.0-8.3 g/dL Albumin 2.5 L 3.5-5.0 g/dL Free Thyroxine (T4) Direct 1.04 0.76-1.46 ng/dL Reticulocyte Count (auto) 0.30728 0.42-2.23 % Immature Reticulocyte Fraction 15.70 H 0.18-0.48 % Hemoglobin A1c 5.6 4.0-6.0 % Estimated Average Glucose (eAG) 114 70-126 mg/dL Iron Level 14 #L 50-170 mcg/dL Total Iron Binding Capacity 314 250-450 mcg/dL Percent Iron Saturation 4.4 L 22-44 % Ferritin 28 15-150 ng/mL Total Creatine Kinase 62 21-232 U/L Troponin I High Sensitivity 57 *H 4-50 ng/L Vitamin B12 Level 704 193-986 pg/mL Folic Acid (LAB) > 20.00 H 2-20 ng/mL Procalcitonin 0.22 0.05-0.5 ng/mL Thyroid Stimulating Hormone (TSH) 0.23 #L 0.36-3.74 uIU/mL Test 07/15/24 02:09 07/14/24 14:45 07/14/24 13:05 Range/Units Hemoglobin (Blood Gas) 9.4 L 12.0-16.0 g/dL Sodium (Blood Gas) 139 136-145 MMOL/L Bedside Potassium (Blood Gas) 4.5 3.4-4.5 MMOL/L Bedside Chloride (Blood Gas) 103 98-107 MMOL/L Bedside Glucose (Blood Gas) 140 H 65-95 MG/DL Bedside Ionized Calcium (Blood Gas) 1.16 1.15-1.33 MMOL/L Bedside Lactic Acid (Blood Gas) 1.21 H 0.36-0.75 MMOL/L Urine Color LIGHT-YELLOW YELLOW Urine Appearance CLEAR CLEAR Urine pH 5.5 5.0-8.0 Urine Specific [place] 1.009 1.001-1.031 Urine Protein 100 H NEGATIVE mg/dL Urine Glucose (UA) NEGATIVE NEGATIVE mg/dL Urine Ketones NEGATIVE NEGATIVE mg/dL Urine Occult Blood SMALL H NEGATIVE Urine Nitrate 1+ H NEGATIVE Urine Bilirubin NEGATIVE NEGATIVE mg/dL Urine Urobilinogen 0.2 0.2-1.0 mg/dL Urine Leukocyte Esterase 75 H NEGATIVE Lynda/uL Urine RBC 0-1 0-1 /HPF Urine WBC 6-10 H 0-1 /HPF Urine Squamous Epithelial Cells RARE 0-2 /HPF Urine Bacteria MANY None Seen /HPF Influenza Type A Antigen Negative For Type A NEGATIVE Influenza Type B Antigen Negative For Type B NEGATIVE SARS-CoV-2, RNA, NAAT NEGATIVE SARS CoV-2 NEGATIVE DIAGNOSTICS / RADIOLOGY: [ ] PROBLEM LIST : Medical Problems: (1) Acute exacerbation of chronic obstructive pulmonary disease (COPD) ICD Codes: J44.1 - Chronic obstructive pulmonary disease with (acute) exacerbation Fungal infection of inguinal region and below the breasts Irritated skin of bilateral buttocks PLAN: [ Nystatin powder to inguinal region and below the breasts Venelex to bilateral buttocks Pressure ulcer prevention per facility protocol Specialty mattress ] The case was discussed with Dr. Fausto Caicedo ATTESTATION BY PHYSICIAN I have seen and examined the patient. I reviewed the documentation, medical decision making, and treatment plan as noted by the mid-level provider above. I agree with the findings and plan of care. CHAPITO CAICEDO MD, VANESSA N PA Jul 16, 2024 12:00 CHAPITO CAICEDO MD Jul 16, 2024 16:45
--- NOTE | 2024-07-16 12:15 | PN ---
[facility] PROGRESS NOTE Date of Service: Jul 16, 2024 Time of Service: 12:09 SUBJECTIVE: 07/15 patient seen at bedside, no acute events overnight. She is still remains on BiPAP, saturating at 98%. Hemoglobin decreased from 9.1 down to 8.2, creatinine increased from 0.9 up to 1.1, troponins are downtrending, TSH mildly decreased at 0.23, we will order a free T4, remainder of her labs are relatively unremarkable. Further care per pulmonology recommendations. 07/16 patient seen at bedside, no acute events overnight. She is still requiring BiPAP therapy, still with prominent wheeze on auscultation. She has been mildly hypertensive, we will increase lisinopril to 40 mg daily. Cultures are no growth to date, continue with nebulizer and systemic steroids. Further recommendations per pulmonology REVIEW OF SYSTEMS 12 point review of systems negative unless noted in HPI PHYSICAL EXAM GENERAL APPEARANCE: The patient is awake, alert, and oriented, in no acute car diopulmonary distress. NEUROLOGICAL: Cranial nerves II-XII grossly intact. Motor is 5/5 in bilateral upper and lower extremities proximal to distal. No sensory deficits. HEENT: Face is symmetric. Pupils are equal and reactive. Extraocular movements are intact. NECK: Supple. No JVD. No thyromegaly. No submental, submandibular, pre- /postauricular, occipital or supraclavicular lymphadenopathy. CHEST: Normal chest expansion. No Telemetry. LUNGS: Absence of any rales, rhonchi or any wheezing. CARDIOVASCULAR: Regular. S1 and S2 normal. No appreciable rubs, murmurs or gallops. ABDOMEN: Soft, nontender, and nondistended. There is no rebound, voluntary guarding, or rigidity. : Deferred. No Nelson. EXTREMITIES: Non-edematous and not cyanotic. No clubbing. Good capillary refill. SKIN: No skin breakdown. Vital Signs (last 8hr) Date Time Temp Pulse Resp B/P (MAP) Pulse Ox O2 Delivery O2 Flow Rate FiO2 07/16/24 11:54 98.2 72 18 164/60 98 Nasal Cannula 3.0 07/16/24 11:46 71 22 07/16/24 11:45 71 22 N/Cannula Low lpm 3.0 32 07/16/24 10:04 89 22 N/Cannula Low lpm 3.0 32 07/16/24 07:58 97.3 55 20 150/81 98 BIPAP 07/16/24 07:22 95 Nasal Cannula* 3 32 07/16/24 07:09 58 28 07/16/24 07:07 58 28 30 LABS: Laboratory: Test 07/16/24 11:20 07/16/24 03:52 07/16/24 03:36 07/15/24 03:45 Range/Units Whole Blood Glucose 134 H 70-110 MG/DL Blood Gas Specimen Type Arterial Arterial Blood pH 7.423 7.350-7.450 Arterial Blood Partial Pressure CO2 45 32-45 mmHg Arterial Blood Partial Pressure O2 77.3 L 83.0-108.0 mmHg Arterial Blood HCO3 28.4 H 21.0-28.0 mmol/L Arterial Blood Oxygen Saturation 95.6 94.0-98.0 % Arterial Blood Base Excess 3.4 H -2.0-3.0 mmol/L Blood Gas Temperature 37.0 35.5-37.0 CELSIUS Blood Gas Respiration Rate 26.0 min. Blood Gas Vent Mode BIPAP12,6 ROOM AIR FiO2 30.0 % Blood Gas Specimen Comment RB,RN KHANH White Blood Count 20.3 #H 4.8-10.8 K/uL Red Blood Count 3.34 L 4.00-5.50 MIL/uL Hemoglobin 8.8 L 12.0-16.0 g/dL Hematocrit 28.0 L 36-48 % Mean Corpuscular Volume 83.8 79-99 fL Mean Corpuscular Hemoglobin 26.3 L 27.0-33.0 pg Mean Corpuscular Hemoglobin Concent 31.4 L 32.0-36.0 g/dL Red Cell Distribution Width 19.0 H 11.0-15.5 % Platelet Count 309 130-400 K/uL Mean Platelet Volume 10.3 7.5-10.5 fL Immature Granulocyte % (Auto) 0.7 0-1 % Neutrophils (%) (Auto) 91.3 H 40.0-77.0 % Lymphocytes (%) (Auto) 4.7 L 21.0-51.0 % Monocytes (%) (Auto) 3.2 3.0-13.0 % Eosinophils (%) (Auto) 0.0 0.0-8.0 % Basophils (%) (Auto) 0.1 0.0-5.0 % Neutrophils # (Auto) 18.5 H 1.8-7.7 K/uL Lymphocytes # (Auto) 1.0 1.0-4.8 K/uL Monocytes # (Auto) 0.7 0.1-1.0 K/uL Eosinophils # (Auto) 0.00 0.00-0.70 K/uL Basophils # (Auto) 0.03 0.00-0.20 K/uL Absolute Immature Granulocyte (auto 0.14 0-1 K/uL Nucleated Red Blood Cells 0.0 0.0-0.19 % Sodium Level 141 136-145 mmol/L Potassium Level 4.3 3.5-5.1 mmol/L Chloride Level 106 101-111 mmol/L Carbon Dioxide Level 31 21-32 mmol/L Blood Urea Nitrogen 47 H 7-18 mg/dL Creatinine 1.1 H 0.5-1.0 mg/dL Glomerular Filtration Rate Calc 48 >90 mL/min Random Glucose 138 H 70-105 mg/dL Lactic Acid Level 1.8 0.8-2.5 mmol/L Total Calcium 8.7 8.5-10.1 mg/dL Phosphorus Level 3.6 2.5-4.9 mg/dL Magnesium Level 2.20 1.80-2.40 mg/dL Total Bilirubin 0.3 # 0.2-1.0 mg/dL Aspartate Amino Transf (AST/SGOT) 24 10-37 U/L Alanine Aminotransferase (ALT/SGPT) 19 12-78 U/L Alkaline Phosphatase 90 50-136 U/L Total Protein 6.8 6.0-8.3 g/dL Albumin 2.5 L 3.5-5.0 g/dL Free Thyroxine (T4) Direct 1.04 0.76-1.46 ng/dL Reticulocyte Count (auto) 0.73990 0.42-2.23 % Immature Reticulocyte Fraction 15.70 H 0.18-0.48 % Hemoglobin A1c 5.6 4.0-6.0 % Estimated Average Glucose (eAG) 114 70-126 mg/dL Iron Level 14 #L 50-170 mcg/dL Total Iron Binding Capacity 314 250-450 mcg/dL Percent Iron Saturation 4.4 L 22-44 % Ferritin 28 15-150 ng/mL Total Creatine Kinase 62 21-232 U/L Troponin I High Sensitivity 57 *H 4-50 ng/L Vitamin B12 Level 704 193-986 pg/mL Folic Acid (LAB) > 20.00 H 2-20 ng/mL Procalcitonin 0.22 0.05-0.5 ng/mL Thyroid Stimulating Hormone (TSH) 0.23 #L 0.36-3.74 uIU/mL Test 07/15/24 02:09 07/14/24 14:45 07/14/24 13:05 Range/Units Hemoglobin (Blood Gas) 9.4 L 12.0-16.0 g/dL Sodium (Blood Gas) 139 136-145 MMOL/L Bedside Potassium (Blood Gas) 4.5 3.4-4.5 MMOL/L Bedside Chloride (Blood Gas) 103 98-107 MMOL/L Bedside Glucose (Blood Gas) 140 H 65-95 MG/DL Bedside Ionized Calcium (Blood Gas) 1.16 1.15-1.33 MMOL/L Bedside Lactic Acid (Blood Gas) 1.21 H 0.36-0.75 MMOL/L Urine Color LIGHT-YELLOW YELLOW Urine Appearance CLEAR CLEAR Urine pH 5.5 5.0-8.0 Urine Specific [place] 1.009 1.001-1.031 Urine Protein 100 H NEGATIVE mg/dL Urine Glucose (UA) NEGATIVE NEGATIVE mg/dL Urine Ketones NEGATIVE NEGATIVE mg/dL Urine Occult Blood SMALL H NEGATIVE Urine Nitrate 1+ H NEGATIVE Urine Bilirubin NEGATIVE NEGATIVE mg/dL Urine Urobilinogen 0.2 0.2-1.0 mg/dL Urine Leukocyte Esterase 75 H NEGATIVE Lynda/uL Urine RBC 0-1 0-1 /HPF Urine WBC 6-10 H 0-1 /HPF Urine Squamous Epithelial Cells RARE 0-2 /HPF Urine Bacteria MANY None Seen /HPF Influenza Type A Antigen Negative For Type A NEGATIVE Influenza Type B Antigen Negative For Type B NEGATIVE SARS-CoV-2, RNA, NAAT NEGATIVE SARS CoV-2 NEGATIVE Current Medications Medications (Trade) Dose Ordered Sig/Parker Route PRN Reason Start Time Stop Time Status Last Admin Dose Admin Acetaminophen 100 ml @ 200 mls/hr Q12H PRN IVPB PAIN/ FEVER, 1-5 07/14/24 13:00 08/13/24 12:59 Acetaminophen (acetaMINOPHEN) 1,000 mg Q12H PRN IVPB PAIN/ FEVER, 1-5 07/14/24 12:00 07/14/24 12:47 DC Albuterol (DUOneb) 1 udvial [id number] IH 07/14/24 12:00 07/14/24 21:49 DC 07/14/24 19:15 1 UDVIAL Budesonide (Pulmicort 0.5 Mg/2ml) 0.5 mg BID IH 07/14/24 21:00 08/13/24 11:59 07/16/24 07:09 0.5 MG Budesonide (Pulmicort 0.5 Mg/2ml) 0.5 mg Q12H IH 07/14/24 12:00 07/14/24 12:58 DC Cefepime HCl (MAXipime 2 gm vial) 2 gm Q12H IVPB 07/14/24 12:00 07/24/24 11:59 07/16/24 12:05 2 GM Doxycycline Hyclate 250 ml @ 125 mls/hr Q12H IV 07/14/24 13:00 07/24/24 12:59 07/16/24 12:06 125 MLS/HR Enoxaparin Sodium (Lovenox) 30 mg DAILY SQ 07/15/24 09:00 08/14/24 08:59 07/16/24 08:40 30 MG Furosemide (LASix 20MG VIAL) 20 mg Q12H IV 07/14/24 12:30 08/13/24 12:29 07/16/24 12:06 20 MG Guaifenesin/ Dextromethorphan (RobiTUSSin DM 200/20MG 10ML) 10 ml Q6H PRN PO COUGH 07/14/24 17:30 08/13/24 17:29 Insulin Human Regular (humuLIN R 100 UNIT/ML 3ML) INSULIN SLIDING SCAL... ACHS SQ 07/14/24 16:30 08/13/24 16:29 Ipratropium Banks (AtrovENT UD) 0.5 MG [id number] IH 07/15/24 00:00 08/14/24 00:00 07/16/24 11:46 0.5 MG Lisinopril (Prinivil 10mg) 10 mg DAILY PO 07/15/24 09:00 08/14/24 08:59 07/16/24 08:37 10 MG Magnesium Sulfate 50 ml @ 0 mls/hr PROTOCOL IV 07/14/24 12:00 08/13/24 11:59 Methylprednisolone Sodium Succinate (Solu-medROL 40MG) 20 mg Q12H IVP 07/16/24 12:30 08/13/24 22:59 UNV Methylprednisolone Sodium Succinate (Solu-medROL 40MG) 40 mg Q8H IVP 07/14/24 23:00 07/16/24 12:08 DC 07/16/24 08:33 40 MG Methylprednisolone Sodium Succinate (Solu-medROL 40MG) 60 mg Q8H IVP 07/14/24 15:00 07/14/24 21:46 DC 07/14/24 16:09 60 MG Montelukast Sodium (SinguLAIR) 10 mg DAILY PO 07/15/24 09:00 08/14/24 08:59 07/16/24 08:38 10 MG Ondansetron HCl (zoFRAN 4MG INJ) 4 mg Q6H PRN IVP NAUSEA/VOMITING 07/14/24 12:00 08/13/24 11:59 Pantoprazole Sodium (PROTonix 40MG INJ) 40 mg Q24H IVP 07/14/24 12:00 08/13/24 11:59 07/16/24 12:05 40 MG Potassium Chloride 100 ml @ 100 mls/hr AD PRN IV POTASSIUM PROTOCOL 07/14/24 12:00 08/13/24 11:59 Potassium Chloride (K-Dur/Klor-Con 20meq) 20 meq AD PRN PO POTASSIUM PROTOCOL 07/14/24 12:00 08/13/24 11:59 Potassium Chloride (KCl 10% Elixir 20meq/15ml) 20 meq AD PRN PO POTASSIUM PROTOCOL 07/14/24 12:00 08/13/24 11:59 Thiamine HCl (Vitamin B-1) 100 mg DAILY IVP 07/15/24 09:00 07/18/24 09:00 07/16/24 08:33 100 MG Vancomycin HCl 250 ml @ 125 mls/hr Q24H IV 07/15/24 15:00 07/15/24 10:52 DC Vancomycin HCl (Vancomycin Protocol) 1 each AD IV 07/14/24 12:00 07/15/24 10:54 DC DIAGNOSTICS / RADIOLOGY: [ ] ASSESSMENT: Severe acute hypoxemic respiratory failure, POA Acute hypercapnic respiratory failure with respiratory acidosis, POA Acute COPD exacerbation, POA Suspected developing community-acquired pneumonia, POA Rule out diastolic heart failure exacerbation, POA Type 2 NSTEMI, secondary to underlying respiratory failure, POA Hypertension, POA Hyperlipidemia, POA Moderate protein calorie malnutrition, POA Frailty/debility/deconditioning, POA Underlying history of anemia, POA PLAN: Continue with CPAP therapy Continue with Solu-Medrol Continue broad-spectrum antibiotics with cefepime/doxycycline Cultures pending we will follow up Continue Lasix 20 mg q.12 hours Echo showing normal EF 50-55%, stage I diastolic dysfunction We will request consultation with Cardiology and pulmonology Continue aspiration precautions Home medications will be reconciled and updated Disposition: Pending improvement in clinical status MARCELA BOONE MD Jul 16, 2024 12:15
--- NOTE | 2024-07-16 14:18 | PN ---
[facility] PROGRESS NOTE Date Patient Seen: Jul 16, 2024 Time of Visit: 14:14 Supervising Physician: YEE LOPEZ MD Primary Care Physician: Mary Aguilera MD Outpatient Specialists: Inpatient Consults: DR ERNESTINE MORA, DR CHAPITO LAUGHLIN PROBLEM LIST: Acute hypercarbic hypoxic respiratory failure on admission Acute COPD exacerbation Community acquired pneumonia Acute on chronic diastolic heart failure Moderate pulmonary hypertension 46 mm/Hg Acute non ST elevation myocardial infarction type 2 secondary to metabolic demand on admission Underlying hyperlipidemia Anemia of chronic disease INTERVAL HISTORY: 07/16 The patient is seen and evaluated by me at bedside. She is a very pleasant 88 years old woman She is awake, she is alert, currently on 3 L oxygen via nasal cannula Patient was on BiPAP assistance overnight She reports that she feels better today than yesterday She has less shortness of breath, still having some cough with phlegm Her voice is stronger, her appetite has improved. No fever or chills reported REVIEW OF SYSTEMS: 12 point ROS reviewed with patient. Pertinent positives mentioned above. Otherwise negative. PHYSICAL EXAM: GENERAL: alert, weak, awake oriented x 2 HEENT: EOMI, Sclera non icteric, moist mucosa NECK: Supple, no JVD, trachea midline LUNGS: Some wheezing noted to the apex bilaterally right greater than left, no rhonchi HEART: Regular rate and rhythm. Normal S1 and S2, without murmurs ABD: Abdomen soft, nontender. Bowel sounds present EXT: No clubbing cyanosis or edema NEURO: Alert and oriented to person, follows commands Vital Signs (last 8hr) Date Time Temp Pulse Resp B/P (MAP) Pulse Ox O2 Delivery O2 Flow Rate FiO2 07/16/24 11:54 98.2 72 18 164/60 98 Nasal Cannula 3.0 07/16/24 11:46 71 22 07/16/24 11:45 71 22 N/Cannula Low lpm 3.0 32 07/16/24 10:04 89 22 N/Cannula Low lpm 3.0 32 07/16/24 07:58 97.3 55 20 150/81 98 BIPAP 07/16/24 07:22 95 Nasal Cannula* 3 32 07/16/24 07:09 58 28 07/16/24 07:07 58 28 30 LABS: Hematology Labs: Test 07/16/24 03:36 07/15/24 03:45 Range/Units White Blood Count 20.3 #H 4.8-10.8 K/uL Red Blood Count 3.34 L 4.00-5.50 MIL/uL Hemoglobin 8.8 L 12.0-16.0 g/dL Hematocrit 28.0 L 36-48 % Mean Corpuscular Volume 83.8 79-99 fL Mean Corpuscular Hemoglobin 26.3 L 27.0-33.0 pg Mean Corpuscular Hemoglobin Concent 31.4 L 32.0-36.0 g/dL Red Cell Distribution Width 19.0 H 11.0-15.5 % Platelet Count 309 130-400 K/uL Mean Platelet Volume 10.3 7.5-10.5 fL Immature Granulocyte % (Auto) 0.7 0-1 % Neutrophils (%) (Auto) 91.3 H 40.0-77.0 % Lymphocytes (%) (Auto) 4.7 L 21.0-51.0 % Monocytes (%) (Auto) 3.2 3.0-13.0 % Eosinophils (%) (Auto) 0.0 0.0-8.0 % Basophils (%) (Auto) 0.1 0.0-5.0 % Neutrophils # (Auto) 18.5 H 1.8-7.7 K/uL Lymphocytes # (Auto) 1.0 1.0-4.8 K/uL Monocytes # (Auto) 0.7 0.1-1.0 K/uL Eosinophils # (Auto) 0.00 0.00-0.70 K/uL Basophils # (Auto) 0.03 0.00-0.20 K/uL Absolute Immature Granulocyte (auto 0.14 0-1 K/uL Nucleated Red Blood Cells 0.0 0.0-0.19 % Reticulocyte Count (auto) 0.20828 0.42-2.23 % Immature Reticulocyte Fraction 15.70 H 0.18-0.48 % Chemistry Labs: Test 07/16/24 11:20 07/16/24 03:36 07/15/24 03:45 Range/Units Whole Blood Glucose 134 H 70-110 MG/DL Sodium Level 141 136-145 mmol/L Potassium Level 4.3 3.5-5.1 mmol/L Chloride Level 106 101-111 mmol/L Carbon Dioxide Level 31 21-32 mmol/L Blood Urea Nitrogen 47 H 7-18 mg/dL Creatinine 1.1 H 0.5-1.0 mg/dL Glomerular Filtration Rate Calc 48 >90 mL/min Random Glucose 138 H 70-105 mg/dL Lactic Acid Level 1.8 0.8-2.5 mmol/L Total Calcium 8.7 8.5-10.1 mg/dL Phosphorus Level 3.6 2.5-4.9 mg/dL Magnesium Level 2.20 1.80-2.40 mg/dL Total Bilirubin 0.3 # 0.2-1.0 mg/dL Aspartate Amino Transf (AST/SGOT) 24 10-37 U/L Alanine Aminotransferase (ALT/SGPT) 19 12-78 U/L Alkaline Phosphatase 90 50-136 U/L Total Protein 6.8 6.0-8.3 g/dL Albumin 2.5 L 3.5-5.0 g/dL Free Thyroxine (T4) Direct 1.04 0.76-1.46 ng/dL Hemoglobin A1c 5.6 4.0-6.0 % Estimated Average Glucose (eAG) 114 70-126 mg/dL Iron Level 14 #L 50-170 mcg/dL Total Iron Binding Capacity 314 250-450 mcg/dL Percent Iron Saturation 4.4 L 22-44 % Ferritin 28 15-150 ng/mL Total Creatine Kinase 62 21-232 U/L Troponin I High Sensitivity 57 *H 4-50 ng/L Vitamin B12 Level 704 193-986 pg/mL Folic Acid (LAB) > 20.00 H 2-20 ng/mL Procalcitonin 0.22 0.05-0.5 ng/mL Thyroid Stimulating Hormone (TSH) 0.23 #L 0.36-3.74 uIU/mL DIAGNOSTICS / RADIOLOGY RESULTS: [I personally reviewed her chest x-ray and compared it to the previous one on admission. X-ray looks clear, better ventilated. ] PLAN Still pending speech language pathology evaluation for swallow test Taper down steroids Continue IV antibiotics Continue supplemental oxygen Continue BiPAP at night as indicated NEURO: Minimize central acting medications as possible. Maintain fall precautions, adequate lighting during the day PULMONARY: Supplemental 02 as needed. Maintain aspiration precautions at all times CARDIOVASCULAR: Follow hemodynamics. Vital signs per facility protocol GI & NUTRITION: Continue with nutritional support. Continue stool softeners and laxatives as needed. KIDNEYS & ELECTROLYTES: Strict monitoring of intake, output and overall fluid balance. Avoid nephrotoxic medications to the extent possible. Medications to be dosed according to renal function. Monitor electrolytes and replace as needed ENDOCRINE: Maintain blood glucose between 100-180 at all times. Hypoglycemia protocol in place INFECTIOUS DISEASE: Trend temperature, WBC and procalcitonin level Follow cultures, deescalate antibiotics as soon as possible. Panculture if new onset fever ONCOLOGY/HEMATOLOGY/COAGULATION: Monitor for s/s of bleeding Monitor hemoglobin, coagulation studies as needed SKIN: Pressure ulcer prevention per facility protocol Specialty mattress ORTHO/REHAB: Continue PT/OT Prophylaxis: Continue GI and DVT prophylaxis Code Status: Full Resuscitation Disposition: as per primary ATTESTATION BY PHYSICIAN Clinical note was scribed by my pesticide use medical coordinator and I attest to the Clinical accuracy of the note. YEE LOPEZ MD I personally scribed for YEE LOPEZ MD ([email or web address]) on 07/16/24 at 14:18. Electronically submitted by Dustin Molina ([email or web address]). YEE LOPEZ MD Jul 16, 2024 14:18
--- NOTE | 2024-07-16 14:19 | NUR ---
[facility] Consult: Patient assessed by wound healing team. Patient with no wounds. Assessment and recommendations provided to primary nurse. Education provided. Addendum: 07/16/24 at 1420 by SYDNI BHATIA RN RN/ Amended: Links added.
[2024-07-16] MEDS: Solu-medROL 40MG VIAL IVP SCH (16:55)
--- NOTE | 2024-07-16 17:30 | NUR ---
BEDSIDE SWALLOW EVAL COMPLETED. No s/s of aspiration. Recommend regular solids, thin liquids, and whole meds with liquids. Compensatory strategies 1. Sit upright 2. slow oral intake 3. Alt between solids and liquids DESIZING PAD OPERATOR reviewed results and recommendations with patient and nurse Kemar. DESIZING PAD OPERATOR educated patient on risk and consequences of aspiration. Speech Therapy not warranted at this time. All questions answered. Addendum: 07/16/24 at 1804 by MARIAJOSE SWEENEY Amended: Links added.
[2024-07-16] MEDS: NYSTatin 15 GM POWDER TP SCH (21:23)
[2024-07-16] MEDS: BALSAM PERU/CASTOR OIL 60 GM TUBE TP SCH (21:23)
[2024-07-17] VITALS (15 sets, daily range): BP systolic 123–162; BP diastolic 51–100; PULSE 52–101; RESP 16–26; TEMP 97.8–98.3; O2SAT 95–99
--- NOTE | 2024-07-17 05:18 | NUR ---
paged ironworker for hospitalist, Osei Bhatia FIREFIGHTING EQUIPMENT SPECIALIST answered page. Informed of lactic acid of 3.2 from 1.8 yesterday. Received orders to give 30mL/kg of Lactated Ringers over 6 hours and to recheck lactic acid at 1300, repeated back orders.
[2024-07-17 05:20] LABS: CREATININE 0.9 mg/dL (0.5-1.0); MAGNESIUM 2.4 mg/dL (1.80-2.40); POTASSIUM 5.8 mmol/L (3.5-5.1)
[2024-07-17] MEDS: LACTATED RINGERS 1000ML 1,000 ML IV SCH (05:42)
[2024-07-17] MEDS: PHARMACY COMMUNICATION MISC ONE (05:50)
[2024-07-17 06:09] LABS: BASOPHILS # (AUTO) 0.02 K/uL (0.00-0.20); BASOPHILS % (AUTO) 0.2 % (0.0-5.0); HEMATOCRIT 31.8 % (36-48); IMMATURE GRANULOCYTE ABSOLUTE 0.16 K/uL (0-1); LYMPHOCYTES # (AUTO) 1.1 K/uL (1.0-4.8); LYMPHOCYTES % (AUTO) 9.4 % (21.0-51.0); MEAN CORPUSCULAR HEMOGLOBIN 26.1 pg (27.0-33.0); MEAN CORPUSCULAR HGB CONC 31.1 g/dL (32.0-36.0); MEAN CORPUSCULAR VOLUME 83.7 fL (79-99); MONOCYTES # (AUTO) 0.5 K/uL (0.1-1.0); MONOCYTES % (AUTO) 4.4 % (3.0-13.0); NEUTROPHILS # (AUTO) 9.7 K/uL (1.8-7.7); NEUTROPHILS % (AUTO) 84.6 % (40.0-77.0); PLATELET COUNT (AUTO) 322 K/uL (130-400); RED CELL DISTRIBUTION WIDTH 18.8 % (11.0-15.5); WHITE BLOOD COUNT (AUTO) 11.5 K/uL (4.8-10.8)
[2024-07-17] MEDS: LISINOPRIL 40 MG TABLET PO SCH (08:17)
--- NOTE | 2024-07-17 08:30 | NUR ---
NO IV ACCESS UNABLE TO OBTAIN IV ACCESS AFTER MULTIPLE ATTEMPTS BY RN AND CHARGE NURSE. DR. BOONE NOTIFIED. NEW ORDERS RECEIVED FOR MIDLINE CATHETER, ORDER FAXED TO [facility].
[2024-07-17 10:25] LABS: INR 1.01 (0.85-1.15); PROTHROMBIN TIME 11.3 SEC (9.6-11.6)
--- NOTE | 2024-07-17 13:17 | PN ---
[facility] PROGRESS NOTE Date of Service: Jul 17, 2024 Time of Service: 13:13 SUBJECTIVE: 07/15 patient seen at bedside, no acute events overnight. She is still remains on BiPAP, saturating at 98%. Hemoglobin decreased from 9.1 down to 8.2, creatinine increased from 0.9 up to 1.1, troponins are downtrending, TSH mildly decreased at 0.23, we will order a free T4, remainder of her labs are relatively unremarkable. Further care per pulmonology recommendations. 07/16 patient seen at bedside, no acute events overnight. She is still requiring BiPAP therapy, still with prominent wheeze on auscultation. She has been mildly hypertensive, we will increase lisinopril to 40 mg daily. Cultures are no growth to date, continue with nebulizer and systemic steroids. Further recommendations per pulmonology 07/17 patient seen at bedside, no acute events overnight. Yesterday lactic acid began trending up patient was given a bolus with subsequent improvement. Potassium mildly elevated at 5.8 we will continue to monitor. Sputum growing Pseudomonas, she has been hypertensive, lisinopril was increased to 40 mg daily, WBC improved from 20.3 down to 11.5, hemoglobin improved from 8.8 up to 9.9, remainder of her labs are relatively unremarkable. We will follow up with pulmonology recommendations. Patient's IV infiltrated, we will have a midline placed REVIEW OF SYSTEMS 12 point review of systems negative unless noted in HPI PHYSICAL EXAM GENERAL APPEARANCE: The patient is awake, alert, and oriented, in no acute cardiopulmonary distress. NEUROLOGICAL: Cranial nerves II-XII grossly intact. Motor is 5/5 in bilateral upper and lower extremities proximal to distal. No sensory deficits. HEENT: Face is symmetric. Pupils are equal and reactive. Extraocular movements are intact. NECK: Supple. No JVD. No thyromegaly. No submental, submandibular, pre-/postauricular, occipital or supraclavicular lymphadenopathy. CHEST: Normal chest expansion. No Telemetry. LUNGS: Absence of any rales, rhonchi or any wheezing. CARDIOVASCULAR: Regular. S1 and S2 normal. No appreciable rubs, murmurs or gallops. ABDOMEN: Soft, nontender, and nondistended. There is no rebound, voluntary guarding, or rigidity. : Deferred. No Nelson. EXTREMITIES: Non-edematous and not cyanotic. No clubbing. Good capillary refill. SKIN: No skin breakdown. Vital Signs (last 8hr) Date Time Temp Pulse Resp B/P (MAP) Pulse Ox O2 Delivery O2 Flow Rate FiO2 07/17/24 13:02 98.1 101 18 146/71 100 Nasal Cannula 3.0 07/17/24 11:18 67 20 07/17/24 11:17 67 18 N/Cannula Low lpm 3.0 32 07/17/24 08:20 99 Nasal Cannula* 3 32 07/17/24 08:15 98.2 76 18 162/69 94 Nasal Cannula 3.0 07/17/24 06:55 73 20 07/17/24 06:54 73 20 N/Cannula Low lpm 3.0 32 LABS: Laboratory: Test 07/17/24 09:40 07/17/24 05:40 07/17/24 04:09 07/16/24 11:20 Range/Units Prothrombin Time 11.3 9.6-11.6 SEC Prothromb Time International Ratio 1.01 0.85-1.15 Lactic Acid Level 1.8 0.8-2.5 mmol/L White Blood Count 11.5 H 4.8-10.8 K/uL Red Blood Count 3.80 L 4.00-5.50 MIL/uL Hemoglobin 9.9 L 12.0-16.0 g/dL Hematocrit 31.8 L 36-48 % Mean Corpuscular Volume 83.7 79-99 fL Mean Corpuscular Hemoglobin 26.1 L 27.0-33.0 pg Mean Corpuscular Hemoglobin Concent 31.1 L 32.0-36.0 g/dL Red Cell Distribution Width 18.8 H 11.0-15.5 % Platelet Count 322 130-400 K/uL Mean Platelet Volume 10.5 7.5-10.5 fL Immature Granulocyte % (Auto) 1.4 H 0-1 % Neutrophils (%) (Auto) 84.6 H 40.0-77.0 % Lymphocytes (%) (Auto) 9.4 L 21.0-51.0 % Monocytes (%) (Auto) 4.4 3.0-13.0 % Eosinophils (%) (Auto) 0.0 0.0-8.0 % Basophils (%) (Auto) 0.2 0.0-5.0 % Neutrophils # (Auto) 9.7 H 1.8-7.7 K/uL Lymphocytes # (Auto) 1.1 1.0-4.8 K/uL Monocytes # (Auto) 0.5 0.1-1.0 K/uL Eosinophils # (Auto) 0.00 0.00-0.70 K/uL Basophils # (Auto) 0.02 0.00-0.20 K/uL Absolute Immature Granulocyte (auto 0.16 0-1 K/uL Nucleated Red Blood Cells 0.0 0.0-0.19 % Sodium Level 142 136-145 mmol/L Potassium Level 5.8 H 3.5-5.1 mmol/L Chloride Level 107 101-111 mmol/L Carbon Dioxide Level 28 21-32 mmol/L Blood Urea Nitrogen 59 H 7-18 mg/dL Creatinine 0.9 0.5-1.0 mg/dL Glomerular Filtration Rate Calc 61 >90 mL/min Random Glucose 133 H 70-105 mg/dL Total Calcium 8.5 8.5-10.1 mg/dL Phosphorus Level 4.0 2.5-4.9 mg/dL Magnesium Level 2.40 1.80-2.40 mg/dL Whole Blood Glucose 134 H 70-110 MG/DL Test 07/16/24 03:52 07/16/24 03:36 Range/Units Blood Gas Specimen Type Arterial Arterial Blood pH 7.423 7.350-7.450 Arterial Blood Partial Pressure CO2 45 32-45 mmHg Arterial Blood Partial Pressure O2 77.3 L 83.0-108.0 mmHg Arterial Blood HCO3 28.4 H 21.0-28.0 mmol/L Arterial Blood Oxygen Saturation 95.6 94.0-98.0 % Arterial Blood Base Excess 3.4 H -2.0-3.0 mmol/L Blood Gas Temperature 37.0 35.5-37.0 CELSIUS Blood Gas Respiration Rate 26.0 min. Blood Gas Vent Mode BIPAP12,6 ROOM AIR FiO2 30.0 % Blood Gas Specimen Comment RB,RN KHANH Total Bilirubin 0.3 # 0.2-1.0 mg/dL Aspartate Amino Transf (AST/SGOT) 24 10-37 U/L Alanine Aminotransferase (ALT/SGPT) 19 12-78 U/L Alkaline Phosphatase 90 50-136 U/L Total Protein 6.8 6.0-8.3 g/dL Albumin 2.5 L 3.5-5.0 g/dL Free Thyroxine (T4) Direct 1.04 0.76-1.46 ng/dL Current Medications Medications (Trade) Dose Ordered Sig/Parker Route PRN Reason Start Time Stop Time Status Last Admin Dose Admin Acetaminophen 100 ml @ 200 mls/hr Q12H PRN IVPB PAIN/ FEVER, 1-5 07/14/24 13:00 08/13/24 12:59 Acetaminophen (acetaMINOPHEN) 1,000 mg Q12H PRN IVPB PAIN/ FEVER, 1-5 07/14/24 12:00 07/14/24 12:47 DC Albuterol (DUOneb) 1 udvial [id number] IH 07/14/24 12:00 07/14/24 21:49 DC 07/14/24 19:15 1 UDVIAL Budesonide (Pulmicort 0.5 Mg/2ml) 0.5 mg BID IH 07/14/24 21:00 08/13/24 11:59 07/17/24 06:52 0.5 MG Budesonide (Pulmicort 0.5 Mg/2ml) 0.5 mg Q12H IH 07/14/24 12:00 07/14/24 12:58 DC Cefepime HCl (MAXipime 2 gm vial) 2 gm Q12H IVPB 07/14/24 12:00 07/24/24 11:59 07/16/24 23:15 2 GM Doxycycline Hyclate 250 ml @ 125 mls/hr Q12H IV 07/14/24 13:00 07/24/24 12:59 07/17/24 00:37 125 MLS/HR Enoxaparin Sodium (Lovenox) 30 mg DAILY SQ 07/15/24 09:00 08/14/24 08:59 07/17/24 08:18 30 MG Furosemide (LASix 20MG VIAL) 20 mg Q12H IV 07/14/24 12:30 08/13/24 12:29 07/16/24 23:34 20 MG Guaifenesin/ Dextromethorphan (RobiTUSSin DM 200/20MG 10ML) 10 ml Q6H PRN PO COUGH 07/14/24 17:30 08/13/24 17:29 Insulin Human Regular (humuLIN R 100 UNIT/ML 3ML) INSULIN SLIDING SCAL... ACHS SQ 07/14/24 16:30 08/13/24 16:29 Ipratropium [place] (AtrovENT UD) 0.5 MG [id number] IH 07/15/24 00:00 08/14/24 00:00 07/17/24 11:17 0.5 MG Lactated Ringer's 2,229 ml @ 371.5 mls/ hr Q6H IV 07/17/24 06:00 07/17/24 11:59 DC 07/17/24 05:42 371.5 MLS/HR Lisinopril (Prinivil 10mg) 10 mg DAILY PO 07/15/24 09:00 07/16/24 12:14 DC 07/16/24 08:37 10 MG Lisinopril (Prinivil 40mg) 40 mg DAILY PO 07/17/24 09:00 08/16/24 08:59 07/17/24 08:17 40 MG Magnesium Sulfate 50 ml @ 0 mls/hr PROTOCOL IV 07/14/24 12:00 08/13/24 11:59 Methylprednisolone Sodium Succinate (Solu-medROL 40MG) 20 mg Q12H IVP 07/16/24 12:30 08/13/24 22:59 07/16/24 23:34 20 MG Methylprednisolone Sodium Succinate (Solu-medROL 40MG) 40 mg Q8H IVP 07/14/24 23:00 07/16/24 12:08 DC 07/16/24 08:33 40 MG Methylprednisolone Sodium Succinate (Solu-medROL 40MG) 60 mg Q8H IVP 07/14/24 15:00 07/14/24 21:46 DC 07/14/24 16:09 60 MG Montelukast Sodium (SinguLAIR) 10 mg DAILY PO 07/15/24 09:00 08/14/24 08:59 07/17/24 08:17 10 MG Nystatin (NystOP 15 GM POWDER) apply to abdominal fold ... BID TP 07/16/24 21:00 08/15/24 20:59 07/17/24 08:17 1 APPL Ondansetron HCl (zoFRAN 4MG INJ) 4 mg Q6H PRN IVP NAUSEA/VOMITING 07/14/24 12:00 08/13/24 11:59 Pantoprazole Sodium (PROTonix 40MG INJ) 40 mg Q24H IVP 07/14/24 12:00 08/13/24 11:59 07/16/24 12:05 40 MG Potassium Chloride 100 ml @ 100 mls/hr AD PRN IV POTASSIUM PROTOCOL 07/14/24 12:00 08/13/24 11:59 Potassium Chloride (K-Dur/Klor-Con 20meq) 20 meq AD PRN PO POTASSIUM PROTOCOL 07/14/24 12:00 08/13/24 11:59 Potassium Chloride (KCl 10% Elixir 20meq/15ml) 20 meq AD PRN PO POTASSIUM PROTOCOL 07/14/24 12:00 08/13/24 11:59 Thiamine HCl (Vitamin B-1) 100 mg DAILY IVP 07/15/24 09:00 07/18/24 09:00 07/16/24 08:33 100 MG Vancomycin HCl 250 ml @ 125 mls/hr Q24H IV 07/15/24 15:00 07/15/24 10:52 DC Vancomycin HCl (Vancomycin Protocol) 1 each AD IV 07/14/24 12:00 07/15/24 10:54 DC Wound Care/ Dressing Products (Venelex Ointment) 1 APPL BID TP 07/16/24 21:00 08/15/24 20:59 07/17/24 08:18 1 GM DIAGNOSTICS / RADIOLOGY: [ ] ASSESSMENT: Severe acute hypoxemic respiratory failure, POA Acute hypercapnic respiratory failure with respiratory acidosis, POA Acute COPD exacerbation, POA Suspected developing community-acquired pneumonia, POA Rule out diastolic heart failure exacerbation, POA Type 2 NSTEMI, secondary to underlying respiratory failure, POA Hypertension, POA Hyperlipidemia, POA Moderate protein calorie malnutrition, POA Frailty/debility/deconditioning, POA Underlying history of anemia, POA PLAN: Continue with CPAP therapy Continue with Solu-Medrol Trend lactic acid Continue broad-spectrum antibiotics with cefepime/doxycycline Cultures pending we will follow up Continue Lasix 20 mg q.12 hours Echo showing normal EF 50-55%, stage I diastolic dysfunction We will request consultation with Cardiology and pulmonology Insert midline Continue aspiration precautions Home medications will be reconciled and updated Disposition: Pending improvement in clinical status MARCELA BOONE MD Jul 17, 2024 13:17
--- NOTE | 2024-07-17 18:05 | NUR ---
WILMAN NOTE WILMAN attempted call to caregiver Tiffany Erazo [phone] to verify if patient has home o2. No answer, WILMAN left voicemail for call back. Addendum: 07/17/24 at 1806 by ORLANDO IRIZARRY CM Amended: Links added.
--- NOTE | 2024-07-17 18:11 | NUR ---
CM NOTE/CAREGIVER CM received call back from caregiver Tiffany Erazo. States patient does not have home o2. CM explained that testing may be performed prior to discharge home to see if patient qualifies. Verbalized understanding.
--- NOTE | 2024-07-17 18:41 | PN ---
[facility] PROGRESS NOTE Date Patient Seen: Jul 17, 2024 Time of Visit: 18:38 Supervising Physician: AYSHA LAUGHLIN MD Primary Care Physician: Mary Aguilera MD Outpatient Specialists: Inpatient Consults: DR ERNESTINE MORA, DR CHAPITO LAUGHLIN PROBLEM LIST: Acute hypercarbic hypoxic respiratory failure on admission Acute COPD exacerbation Community acquired pneumonia Acute on chronic diastolic heart failure Moderate pulmonary hypertension 46 mm/Hg Acute non ST elevation myocardial infarction type 2 secondary to metabolic demand on admission Underlying hyperlipidemia Anemia of chronic disease INTERVAL HISTORY: 07/17 Mrs. Jasmine is a very pleasant 88 years old woman, she is currently seen and evaluated on the medical floor. She is awake, she is alert and does not appear to be in distress. Patient is very hard of hearing. Currently on 3 L oxygen via nasal cannula, slept with a BiPAP device on. She is afebrile, she is well hydrated, her voice is stronger, less cough, less congestion. Denies chest pain, she has good appetite. No constipation. REVIEW OF SYSTEMS: 12 point ROS reviewed with patient. Pertinent positives mentioned above. Otherwise negative. PHYSICAL EXAM: GENERAL: alert, weak, awake oriented x 2 HEENT: EOMI, Sclera non icteric, moist mucosa NECK: Supple, no JVD, trachea midline LUNGS: Her lungs show decreased air entry bilaterally at the bases however, no wheezing or rhonchi noted. HEART: Regular rate and rhythm. Normal S1 and S2, without murmurs ABD: Abdomen soft, nontender. Bowel sounds present EXT: No clubbing cyanosis or edema NEURO: Alert and oriented to person, follows commands Vital Signs (last 8hr) Date Time Temp Pulse Resp B/P (MAP) Pulse Ox O2 Delivery O2 Flow Rate FiO2 07/17/24 17:14 97.9 61 16 123/51 97 Nasal Cannula 3.0 07/17/24 13:02 98.1 101 18 146/71 100 Nasal Cannula 3.0 07/17/24 11:18 67 20 07/17/24 11:17 67 18 N/Cannula Low lpm 3.0 32 LABS: Hematology Labs: Test 07/17/24 05:40 Range/Units White Blood Count 11.5 H 4.8-10.8 K/uL Red Blood Count 3.80 L 4.00-5.50 MIL/uL Hemoglobin 9.9 L 12.0-16.0 g/dL Hematocrit 31.8 L 36-48 % Mean Corpuscular Volume 83.7 79-99 fL Mean Corpuscular Hemoglobin 26.1 L 27.0-33.0 pg Mean Corpuscular Hemoglobin Concent 31.1 L 32.0-36.0 g/dL Red Cell Distribution Width 18.8 H 11.0-15.5 % Platelet Count 322 130-400 K/uL Mean Platelet Volume 10.5 7.5-10.5 fL Immature Granulocyte % (Auto) 1.4 H 0-1 % Neutrophils (%) (Auto) 84.6 H 40.0-77.0 % Lymphocytes (%) (Auto) 9.4 L 21.0-51.0 % Monocytes (%) (Auto) 4.4 3.0-13.0 % Eosinophils (%) (Auto) 0.0 0.0-8.0 % Basophils (%) (Auto) 0.2 0.0-5.0 % Neutrophils # (Auto) 9.7 H 1.8-7.7 K/uL Lymphocytes # (Auto) 1.1 1.0-4.8 K/uL Monocytes # (Auto) 0.5 0.1-1.0 K/uL Eosinophils # (Auto) 0.00 0.00-0.70 K/uL Basophils # (Auto) 0.02 0.00-0.20 K/uL Absolute Immature Granulocyte (auto 0.16 0-1 K/uL Nucleated Red Blood Cells 0.0 0.0-0.19 % Chemistry Labs: Test 07/17/24 09:40 07/17/24 04:09 07/16/24 11:20 07/16/24 03:36 Range/Units Lactic Acid Level 1.8 0.8-2.5 mmol/L Sodium Level 142 136-145 mmol/L Potassium Level 5.8 H 3.5-5.1 mmol/L Chloride Level 107 101-111 mmol/L Carbon Dioxide Level 28 21-32 mmol/L Blood Urea Nitrogen 59 H 7-18 mg/dL Creatinine 0.9 0.5-1.0 mg/dL Glomerular Filtration Rate Calc 61 >90 mL/min Random Glucose 133 H 70-105 mg/dL Total Calcium 8.5 8.5-10.1 mg/dL Phosphorus Level 4.0 2.5-4.9 mg/dL Magnesium Level 2.40 1.80-2.40 mg/dL Whole Blood Glucose 134 H 70-110 MG/DL Total Bilirubin 0.3 # 0.2-1.0 mg/dL Aspartate Amino Transf (AST/SGOT) 24 10-37 U/L Alanine Aminotransferase (ALT/SGPT) 19 12-78 U/L Alkaline Phosphatase 90 50-136 U/L Total Protein 6.8 6.0-8.3 g/dL Albumin 2.5 L 3.5-5.0 g/dL Free Thyroxine (T4) Direct 1.04 0.76-1.46 ng/dL Coagulation Labs: Test 07/17/24 09:40 Range/Units Prothrombin Time 11.3 9.6-11.6 SEC Prothromb Time International Ratio 1.01 0.85-1.15 DIAGNOSTICS / RADIOLOGY RESULTS: [ Chest x-ray reviewed at bedside] PLAN Continue supplemental oxygen Taper down steroids Continue IV antibiotics Continue nebulizer treatments Incentive spirometry BiPAP at night, may use during the daytime if needed p.r.n. Physical therapy evaluation NEURO: Minimize central acting medications as possible. Maintain fall precautions, adequate lighting during the day PULMONARY: Supplemental 02 as needed. Maintain aspiration precautions at all times CARDIOVASCULAR: Follow hemodynamics. Vital signs per facility protocol GI & NUTRITION: Continue with nutritional support. Continue stool softeners and laxatives as needed. KIDNEYS & ELECTROLYTES: Strict monitoring of intake, output and overall fluid balance. Avoid nephrotoxic medications to the extent possible. Medications to be dosed according to renal function. Monitor electrolytes and replace as needed ENDOCRINE: Maintain blood glucose between 100-180 at all times. Hypoglycemia protocol in place INFECTIOUS DISEASE: Trend temperature, WBC and procalcitonin level Follow cultures, deescalate antibiotics as soon as possible. Panculture if new onset fever ONCOLOGY/HEMATOLOGY/COAGULATION: Monitor for s/s of bleeding Monitor hemoglobin, coagulation studies as needed SKIN: Pressure ulcer prevention per facility protocol Specialty mattress ORTHO/REHAB: Continue PT/OT Prophylaxis: Continue GI and DVT prophylaxis Code Status: Full Resuscitation Disposition: as per primary ATTESTATION BY PHYSICIAN Clinical note was scribed by my medical research scientist and I attest to the Clinical accuracy of the note. AYSHA LAUGHLIN MD I personally scribed for AYSHA LAUGHLIN MD ([email or web address]) on 07/17/24 at 18:41. Electronically submitted by Dustin Molina ([email or web address]). AYSHA LAUGHLIN MD Jul 17, 2024 18:41
[2024-07-17 23:07] LABS: MYCOPLASMA AB IGM <770 U/mL (0-769)
[2024-07-18] VITALS (14 sets, daily range): BP systolic 145–170; BP diastolic 48–74; PULSE 56–76; RESP 18–20; TEMP 97.6–98.3; O2SAT 86–98
--- NOTE | 2024-07-18 00:26 | NUR ---
MIDLINE INSERTION 5FR 2 LUMEN MIDLINE INSERTED TO RIGHT UPPER ARM CEPHALIC VEIN USING STERILE TECHNIQUE. ULTRASOUND GUIDED USING MST. INTERNAL CATHETER LENGTH: 15CM. EXTERNAL CATHETER LENGTH: 0CM. MIDLINE CARE: -PERFORM HAND HYGIENE, WEAR GLOVES, SCRUB THE HUB FOR 15 SECONDS BEFORE EVERY ACCESS. -FLUSH BOTH LUMENS WITH 10ML NS FLUSH EVERY 12 HOURS IF LINE IS NOT IN USE AND CLAMP AFTER EVERY ACCESS. -CHANGE MIDLINE DRESSING EVERY 7 DAYS AND PRN IF SOILED OR PEELING OFF.
[2024-07-18 03:49] LABS: BASOPHILS # (AUTO) 0.01 K/uL (0.00-0.20); BASOPHILS % (AUTO) 0.1 % (0.0-5.0); HEMATOCRIT 29.3 % (36-48); IMMATURE GRANULOCYTE ABSOLUTE 0.15 K/uL (0-1); LYMPHOCYTES # (AUTO) 0.9 K/uL (1.0-4.8); LYMPHOCYTES % (AUTO) 8.3 % (21.0-51.0); MEAN CORPUSCULAR HEMOGLOBIN 25.3 pg (27.0-33.0); MEAN CORPUSCULAR HGB CONC 30.4 g/dL (32.0-36.0); MEAN CORPUSCULAR VOLUME 83.2 fL (79-99); MONOCYTES # (AUTO) 0.5 K/uL (0.1-1.0); MONOCYTES % (AUTO) 4.3 % (3.0-13.0); NEUTROPHILS # (AUTO) 9.8 K/uL (1.8-7.7); PLATELET COUNT (AUTO) 268 K/uL (130-400); RED BLOOD CELL COUNT(AUTO) 3.52 MIL/uL (4.00-5.50); RED CELL DISTRIBUTION WIDTH 18.6 % (11.0-15.5); WHITE BLOOD COUNT (AUTO) 11.4 K/uL (4.8-10.8)
[2024-07-18 04:03] LABS: CREATININE 0.9 mg/dL (0.5-1.0); POTASSIUM 3.9 mmol/L (3.5-5.1)
--- NOTE | 2024-07-18 10:55 | NUR ---
SNF-WOH Call placed to [facility] niece Kim Coni @ [phone] to discuss Md order/recommendation for SNF. She states that pt is alert now and able to make decision on choice for SNF. Spoke to pt at bedside regarding SNF recommendations. JESS/PC obtained for [facility]. Informed pt and niece SNF would be pending ins auth.
--- NOTE | 2024-07-18 12:58 | PN ---
[facility] PROGRESS NOTE Date of Service: Jul 18, 2024 Time of Service: 12:52 SUBJECTIVE: 07/15 patient seen at bedside, no acute events overnight. She is still remains on BiPAP, saturating at 98%. Hemoglobin decreased from 9.1 down to 8.2, creatinine increased from 0.9 up to 1.1, troponins are downtrending, TSH mildly decreased at 0.23, we will order a free T4, remainder of her labs are relatively unremarkable. Further care per pulmonology recommendations. 07/16 patient seen at bedside, no acute events overnight. She is still requiring BiPAP therapy, still with prominent wheeze on auscultation. She has been mildly hypertensive, we will increase lisinopril to 40 mg daily. Cultures are no growth to date, continue with nebulizer and systemic steroids. Further recommendations per pulmonology 07/17 patient seen at bedside, no acute events overnight. Yesterday lactic acid began trending up patient was given a bolus with subsequent improvement. Potassium mildly elevated at 5.8 we will continue to monitor. Sputum growing Pseudomonas, she has been hypertensive, lisinopril was increased to 40 mg daily, WBC improved from 20.3 down to 11.5, hemoglobin improved from 8.8 up to 9.9, remainder of her labs are relatively unremarkable. We will follow up with pulmonology recommendations. Patient's IV infiltrated, we will have a midline placed 07/19 patient seen at bedside, no acute events overnight. Lactic acid has improved back to normal today. She remains on BiPAP overnight, was restarted on nasal cannula today and was saturating 98%. Nursing instructed to keep O2 sats around 92%. Patient has not ambulated with physical therapy, we will refer her to long term for aggressive rehab. Blood pressure was mildly elevated we will start nifedipine 30 mg twice daily. We will follow up with further pulmonology recommendations. REVIEW OF SYSTEMS 12 point review of systems negative unless noted in HPI PHYSICAL EXAM GENERAL APPEARANCE: The patient is awake, alert, and oriented, in no acute cardiopulmonary distress. NEUROLOGICAL: Cranial nerves II-XII grossly intact. Motor is 5/5 in bilateral upper and lower extremities proximal to distal. No sensory deficits. HEENT: Face is symmetric. Pupils are equal and reactive. Extraocular movements are intact. NECK: Supple. No JVD. No thyromegaly. No submental, submandibular, pre- /postauricular, occipital or supraclavicular lymphadenopathy. CHEST: Normal chest expansion. No Telemetry. LUNGS: Absence of any rales, rhonchi or any wheezing. CARDIOVASCULAR: Regular. S1 and S2 normal. No appreciable rubs, murmurs or gallops. ABDOMEN: Soft, nontender, and nondistended. There is no rebound, voluntary guarding, or rigidity. : Deferred. No Nelson. EXTREMITIES: Non-edematous and not cyanotic. No clubbing. Good capillary refill. SKIN: No skin breakdown. Vital Signs (last 8hr) Date Time Temp Pulse Resp B/P (MAP) Pulse Ox O2 Delivery O2 Flow Rate FiO2 07/18/24 12:43 97.5 67 18 166/54 98 Nasal Cannula 3.0 07/18/24 11:20 61 18 07/18/24 11:20 N/A Room Air 21 07/18/24 08:35 98.1 68 18 170/74 92 Nasal Cannula 3.0 07/18/24 06:54 56 18 07/18/24 06:53 18 N/Cannula Low lpm 3.0 32 LABS: Laboratory: Test 07/18/24 03:34 07/17/24 09:40 07/17/24 04:09 Range/Units White Blood Count 11.4 H 4.8-10.8 K/uL Red Blood Count 3.52 L 4.00-5.50 MIL/uL Hemoglobin 8.9 L 12.0-16.0 g/dL Hematocrit 29.3 L 36-48 % Mean Corpuscular Volume 83.2 79-99 fL Mean Corpuscular Hemoglobin 25.3 L 27.0-33.0 pg Mean Corpuscular Hemoglobin Concent 30.4 L 32.0-36.0 g/dL Red Cell Distribution Width 18.6 H 11.0-15.5 % Platelet Count 268 130-400 K/uL Mean Platelet Volume 10.8 H 7.5-10.5 fL Immature Granulocyte % (Auto) 1.3 H 0-1 % Neutrophils (%) (Auto) 86.0 H 40.0-77.0 % Lymphocytes (%) (Auto) 8.3 L 21.0-51.0 % Monocytes (%) (Auto) 4.3 3.0-13.0 % Eosinophils (%) (Auto) 0.0 0.0-8.0 % Basophils (%) (Auto) 0.1 0.0-5.0 % Neutrophils # (Auto) 9.8 H 1.8-7.7 K/uL Lymphocytes # (Auto) 0.9 L 1.0-4.8 K/uL Monocytes # (Auto) 0.5 0.1-1.0 K/uL Eosinophils # (Auto) 0.00 0.00-0.70 K/uL Basophils # (Auto) 0.01 0.00-0.20 K/uL Absolute Immature Granulocyte (auto 0.15 0-1 K/uL Nucleated Red Blood Cells 0.0 0.0-0.19 % Sodium Level 145 136-145 mmol/L Potassium Level 3.9 3.5-5.1 mmol/L Chloride Level 108 101-111 mmol/L Carbon Dioxide Level 33 H 21-32 mmol/L Blood Urea Nitrogen 47 H 7-18 mg/dL Creatinine 0.9 0.5-1.0 mg/dL Glomerular Filtration Rate Calc 61 >90 mL/min Random Glucose 144 H 70-105 mg/dL Total Calcium 8.2 L 8.5-10.1 mg/dL Prothrombin Time 11.3 9.6-11.6 SEC Prothromb Time International Ratio 1.01 0.85-1.15 Lactic Acid Level 1.8 0.8-2.5 mmol/L Phosphorus Level 4.0 2.5-4.9 mg/dL Magnesium Level 2.40 1.80-2.40 mg/dL Current Medications Medications (Trade) Dose Ordered Sig/Parker Route PRN Reason Start Time Stop Time Status Last Admin Dose Admin Acetaminophen 100 ml @ 200 mls/hr Q12H PRN IVPB PAIN/ FEVER, 1-5 07/14/24 13:00 08/13/24 12:59 Acetaminophen (acetaMINOPHEN) 1,000 mg Q12H PRN IVPB PAIN/ FEVER, 1-5 07/14/24 12:00 07/14/24 12:47 DC Albuterol (DUOneb) 1 udvial [id number] 07/14/24 12:00 07/14/24 21:49 DC 07/14/24 19:15 1 UDVIAL Budesonide (Pulmicort 0.5 Mg/2ml) 0.5 mg BID 07/14/24 21:00 08/13/24 11:59 07/18/24 11:18 0.5 MG Budesonide (Pulmicort 0.5 Mg/2ml) 0.5 mg Q12H IH 07/14/24 12:00 07/14/24 12:58 DC Cefepime HCl (MAXipime 2 gm vial) 2 gm Q12H IVPB 07/14/24 12:00 07/24/24 11:59 07/18/24 12:42 2 GM Doxycycline Hyclate 250 ml @ 125 mls/hr Q12H IV 07/14/24 13:00 07/24/24 12:59 07/18/24 00:13 125 MLS/HR Enoxaparin Sodium (Lovenox) 30 mg DAILY SQ 07/15/24 09:00 08/14/24 08:59 07/18/24 09:44 30 MG Furosemide (LASix 20MG VIAL) 20 mg Q12H IV 07/14/24 12:30 07/18/24 01:00 DC 07/18/24 00:14 20 MG Guaifenesin/ Dextromethorphan (RobiTUSSin DM 200/20MG 10ML) 10 ml Q6H PRN PO COUGH 07/14/24 17:30 08/13/24 17:29 Insulin Human Regular (humuLIN R 100 UNIT/ML 3ML) INSULIN SLIDING SCAL... ACHS SQ 07/14/24 16:30 08/13/24 16:29 Ipratropium [place] (AtrovENT UD) 0.5 MG [id number] IH 07/15/24 00:00 08/14/24 00:00 07/18/24 11:18 0.5 MG Lactated Ringer's 2,229 ml @ 371.5 mls/ hr Q6H IV 07/17/24 06:00 07/17/24 11:59 DC 07/17/24 05:42 371.5 MLS/HR Lisinopril (Prinivil 10mg) 10 mg DAILY PO 07/15/24 09:00 07/16/24 12:14 DC 07/16/24 08:37 10 MG Lisinopril (Prinivil 40mg) 40 mg DAILY PO 07/17/24 09:00 08/16/24 08:59 07/18/24 09:44 40 MG Magnesium Sulfate 50 ml @ 0 mls/hr PROTOCOL IV 07/14/24 12:00 08/13/24 11:59 Methylprednisolone Sodium Succinate (Solu-medROL 40MG) 20 mg Q12H IVP 07/16/24 12:30 08/13/24 22:59 07/18/24 12:42 20 MG Methylprednisolone Sodium Succinate (Solu-medROL 40MG) 40 mg Q8H IVP 07/14/24 23:00 07/16/24 12:08 DC 07/16/24 08:33 40 MG Methylprednisolone Sodium Succinate (Solu-medROL 40MG) 60 mg Q8H IVP 07/14/24 15:00 07/14/24 21:46 DC 07/14/24 16:09 60 MG Montelukast Sodium (SinguLAIR) 10 mg DAILY PO 07/15/24 09:00 08/14/24 08:59 07/18/24 09:44 10 MG Nystatin (NystOP 15 GM POWDER) apply to abdominal fold ... BID TP 07/16/24 21:00 08/15/24 20:59 07/18/24 09:45 1 APPL Ondansetron HCl (zoFRAN 4MG INJ) 4 mg Q6H PRN IVP NAUSEA/VOMITING 07/14/24 12:00 08/13/24 11:59 Pantoprazole Sodium (PROTonix 40MG INJ) 40 mg Q24H IVP 07/14/24 12:00 08/13/24 11:59 07/18/24 12:42 40 MG Potassium Chloride 100 ml @ 100 mls/hr AD PRN IV POTASSIUM PROTOCOL 07/14/24 12:00 08/13/24 11:59 Potassium Chloride (K-Dur/Klor-Con 20meq) 20 meq AD PRN PO POTASSIUM PROTOCOL 07/14/24 12:00 08/13/24 11:59 Potassium Chloride (KCl 10% Elixir 20meq/15ml) 20 meq AD PRN PO POTASSIUM PROTOCOL 07/14/24 12:00 08/13/24 11:59 Thiamine HCl (Vitamin B-1) 100 mg DAILY IVP 07/15/24 09:00 07/18/24 09:00 DC 07/18/24 09:44 100 MG Vancomycin HCl 250 ml @ 125 mls/hr Q24H IV 07/15/24 15:00 07/15/24 10:52 DC Vancomycin HCl (Vancomycin Protocol) 1 each AD IV 07/14/24 12:00 07/15/24 10:54 DC Wound Care/ Dressing Products (Venelex Ointment) 1 APPL BID TP 07/16/24 21:00 08/15/24 20:59 07/18/24 09:45 1 GM DIAGNOSTICS / RADIOLOGY: [ ] ASSESSMENT: Severe acute hypoxemic respiratory failure, POA Acute hypercapnic respiratory failure with respiratory acidosis, POA Acute COPD exacerbation, POA Suspected developing community-acquired pneumonia, POA Rule out diastolic heart failure exacerbation, POA Type 2 NSTEMI, secondary to underlying respiratory failure, POA Hypertension, POA Hyperlipidemia, POA Moderate protein calorie malnutrition, POA Frailty/debility/deconditioning, POA Underlying history of anemia, POA PLAN: Continue with CPAP therapy Continue with Solu-Medrol Start nifedipine 30 mg twice daily Continue lisinopril 40 mg daily Continue broad-spectrum antibiotics with cefepime/doxycycline Sputum growing Pseudomonas Continue Lasix 20 mg q.12 hours Echo showing normal EF 50-55%, stage I diastolic dysfunction We will request consultation with Cardiology and pulmonology Continue aspiration precautions Home medications will be reconciled and updated Disposition: Pending placement to [facility] MARCELA BOONE MD Jul 18, 2024 12:58
[2024-07-18] MEDS: nifeDIPine ER 30 MG TAB PO SCH (13:34)
--- NOTE | 2024-07-18 15:16 | NUR ---
SNF Referral Referral/PASRR faxed to Corey Acosta notified of new referral.
--- NOTE | 2024-07-18 18:38 | PN ---
[facility] PROGRESS NOTE Date Patient Seen: Jul 18, 2024 Time of Visit: 18:36 Supervising Physician: AYSHA LAUGHLIN MD Primary Care Physician: Mary Aguilera MD Outpatient Specialists: Inpatient Consults: DR ERNESTINE MORA, DR CHAPITO LAUGHLIN PROBLEM LIST: Acute hypercarbic hypoxic respiratory failure on admission Acute COPD exacerbation Community acquired pneumonia Acute on chronic diastolic heart failure Moderate pulmonary hypertension 46 mm/Hg Acute non ST elevation myocardial infarction type 2 secondary to metabolic demand on admission Underlying hyperlipidemia Anemia of chronic disease INTERVAL HISTORY: 06/22 Afebrile, well hydrated, awake and on 3 L/min nasal canula Doing better, feels better, no distress Still having cough, especially with exertion no fevers, no hemoptysis appetite is good no nausea or vomiting pending evaluation by speech therapy for diet recommendations REVIEW OF SYSTEMS: 12 point ROS reviewed with patient. Pertinent positives mentioned above. Otherwise negative. PHYSICAL EXAM: GENERAL: alert, weak, awake oriented x 2 HEENT: EOMI, Sclera non icteric, moist mucosa NECK: Supple, no JVD, trachea midline LUNGS: Her lungs show decreased air entry bilaterally at the bases however, no wheezing or rhonchi noted. HEART: Regular rate and rhythm. Normal S1 and S2, without murmurs ABD: Abdomen soft, nontender. Bowel sounds present EXT: No clubbing cyanosis or edema NEURO: Alert and oriented to person, follows commands Vital Signs (last 8hr) Date Time Temp Pulse Resp B/P (MAP) Pulse Ox O2 Delivery O2 Flow Rate FiO2 07/18/24 17:02 97.9 68 18 163/60 95 Nasal Cannula 3.0 07/18/24 12:43 97.5 67 18 166/54 98 Nasal Cannula 3.0 07/18/24 11:20 61 18 07/18/24 11:20 N/A Room Air 21 LABS: Hematology Labs: Test 07/18/24 03:34 Range/Units White Blood Count 11.4 H 4.8-10.8 K/uL Red Blood Count 3.52 L 4.00-5.50 MIL/uL Hemoglobin 8.9 L 12.0-16.0 g/dL Hematocrit 29.3 L 36-48 % Mean Corpuscular Volume 83.2 79-99 fL Mean Corpuscular Hemoglobin 25.3 L 27.0-33.0 pg Mean Corpuscular Hemoglobin Concent 30.4 L 32.0-36.0 g/dL Red Cell Distribution Width 18.6 H 11.0-15.5 % Platelet Count 268 130-400 K/uL Mean Platelet Volume 10.8 H 7.5-10.5 fL Immature Granulocyte % (Auto) 1.3 H 0-1 % Neutrophils (%) (Auto) 86.0 H 40.0-77.0 % Lymphocytes (%) (Auto) 8.3 L 21.0-51.0 % Monocytes (%) (Auto) 4.3 3.0-13.0 % Eosinophils (%) (Auto) 0.0 0.0-8.0 % Basophils (%) (Auto) 0.1 0.0-5.0 % Neutrophils # (Auto) 9.8 H 1.8-7.7 K/uL Lymphocytes # (Auto) 0.9 L 1.0-4.8 K/uL Monocytes # (Auto) 0.5 0.1-1.0 K/uL Eosinophils # (Auto) 0.00 0.00-0.70 K/uL Basophils # (Auto) 0.01 0.00-0.20 K/uL Absolute Immature Granulocyte (auto 0.15 0-1 K/uL Nucleated Red Blood Cells 0.0 0.0-0.19 % Chemistry Labs: Test 07/18/24 03:34 07/17/24 09:40 07/17/24 04:09 Range/Units Sodium Level 145 136-145 mmol/L Potassium Level 3.9 3.5-5.1 mmol/L Chloride Level 108 101-111 mmol/L Carbon Dioxide Level 33 H 21-32 mmol/L Blood Urea Nitrogen 47 H 7-18 mg/dL Creatinine 0.9 0.5-1.0 mg/dL Glomerular Filtration Rate Calc 61 >90 mL/min Random Glucose 144 H 70-105 mg/dL Total Calcium 8.2 L 8.5-10.1 mg/dL Lactic Acid Level 1.8 0.8-2.5 mmol/L Phosphorus Level 4.0 2.5-4.9 mg/dL Magnesium Level 2.40 1.80-2.40 mg/dL Coagulation Labs: Test 07/17/24 09:40 Range/Units Prothrombin Time 11.3 9.6-11.6 SEC Prothromb Time International Ratio 1.01 0.85-1.15 DIAGNOSTICS / RADIOLOGY RESULTS: [ None today ] PLAN Plan for discharge to SNF once stable continue on supplemental oxygen patient will require home oxygen continue BiPAP as indicated NEURO: Minimize central acting medications as possible. Maintain fall precautions, adequate lighting during the day PULMONARY: Supplemental 02 as needed. Maintain aspiration precautions at all times CARDIOVASCULAR: Follow hemodynamics. Vital signs per facility protocol GI & NUTRITION: Continue with nutritional support. Continue stool softeners and laxatives as needed. KIDNEYS & ELECTROLYTES: Strict monitoring of intake, output and overall fluid balance. Avoid nephrotoxic medications to the extent possible. Medications to be dosed according to renal function. Monitor electrolytes and replace as needed ENDOCRINE: Maintain blood glucose between 100-180 at all times. Hypoglycemia protocol in place INFECTIOUS DISEASE: Trend temperature, WBC and procalcitonin level Follow cultures, deescalate antibiotics as soon as possible. Panculture if new onset fever ONCOLOGY/HEMATOLOGY/COAGULATION: Monitor for s/s of bleeding Monitor hemoglobin, coagulation studies as needed SKIN: Pressure ulcer prevention per facility protocol Specialty mattress ORTHO/REHAB: Continue PT/OT Prophylaxis: Continue GI and DVT prophylaxis Code Status: Full Resuscitation Disposition: as per primary, plan for SNF ATTESTATION BY PHYSICIAN Clinical note was scribed by my medical staff manager and I attest to the Clinical accuracy of the note. AYSHA LAUGHLIN MD The patient has been seen and evaluated, scribe note has been reviewed and it is accurate. I personally scribed for AYSHA LAUGHLIN MD ([email or web address]) on 07/18/24 at 18:38. Electronically submitted by Dustin Molina ([email or web address]). AYSHA LAUGHLIN MD Jul 18, 2024 18:38
[2024-07-18] MEDS: LACTULOSE 20 GM/30 ML UDCUP PO ONE (18:40)
[2024-07-19] VITALS (13 sets, daily range): BP systolic 127–165; BP diastolic 50–90; PULSE 54–77; RESP 18–26; TEMP 97.7–98.1; O2SAT 95–97
--- NOTE | 2024-07-19 04:58 | NUR ---
WHILE WALKING BY PATIENT ROOM NOTED PATIENT ASLEEP HOWEVER SLIGHTLY TACHYPNEIC. ASSESSED PATIENT. AA0X3, ON OXYGEN AT 2L PER MINUTE VIA NASAL CANULA. SATING 96%. RESPIRATORY RATE OF 26. NEXT NEB TX DUE AT 0600AM. LOWER LOBES WITH CRACKLES. CALLED RT FOR ASSESSMENT. RT PLACED PATIENT ON PRN BIPAP.
--- NOTE | 2024-07-19 05:38 | NUR ---
SPOKE TO BENCHMARK PROVIDER Kwesi GASPAR NP. ORDERED CBC, CMP, MG, ABG, BNP AND CHEST X RAY. ORDER CARRIED OUT. Addendum: 07/19/24 at 0542 by ISABELL DAIGLE RN RN THIS SHIFT 250ML OF URINE OUTPUT SO FAR . DID BLADDER SCAN AND PATIENT HAD 405ML OF URINE IN BLADDER. PATIENT DENIED OF ANY SUPRAPUBIC DISCOMFORT. REPORTED TO Kwesi GASPAR NP. STATED MAY DO IN AND OUT CATHETERIZATION X 1 IF PATIENT DOES NOT VOID ANY FURTHER.
[2024-07-19 05:39] LABS: ABG BASE EXCESS 3.9 mmol/L (-2.0-3.0); ABG HCO3 29.1 mmol/L (21.0-28.0); ABG OXYGEN SATURATION 96.3 % (94.0-98.0); ABG PCO2 46 mmHg (32-45); PO2, ARTERIAL BG 82.8 mmHg (83.0-108.0); VENT MODE, BG BIPAP 12,6 (ROOM AIR)
[2024-07-19 06:24] LABS: HEMATOCRIT 30.2 % (36-48); MEAN CORPUSCULAR HEMOGLOBIN 25.6 pg (27.0-33.0); MEAN CORPUSCULAR HGB CONC 30.5 g/dL (32.0-36.0); MEAN CORPUSCULAR VOLUME 83.9 fL (79-99); RED BLOOD CELL COUNT(AUTO) 3.6 MIL/uL (4.00-5.50); RED CELL DISTRIBUTION WIDTH 18.4 % (11.0-15.5); WHITE BLOOD COUNT (AUTO) 8.4 K/uL (4.8-10.8)
[2024-07-19 06:48] LABS: ALBUMIN 2.4 g/dL (3.5-5.0); BILIRUBIN,TOTAL 0.2 mg/dL (0.2-1.0); CREATININE 0.7 mg/dL (0.5-1.0); MAGNESIUM 2.1 mg/dL (1.80-2.40); POTASSIUM 3.9 mmol/L (3.5-5.1); TOTAL PROTEIN, SERUM 6.6 g/dL (6.0-8.3)
--- NOTE | 2024-07-19 07:17 | NUR ---
THIS AM GOT UP PATIENT TO BEDSIDE COMMODE TO URINATE. PATIENT WAS ABLE TO VOID. NO NEED FOR IN AND OUT CATHETERIZATION.
[2024-07-19] MEDS: MAGNESIUM CITRATE 296 ML SOLUTION PO ONE (07:36)
[2024-07-19] MEDS: nifeDIPine ER 30 MG TAB PO SCH (08:28)
--- NOTE | 2024-07-19 08:35 | HMCIMG ---
Exam Type: CHEST 1VW Clinical Information: TACHYPNEA Comparison: None Findings: The lungs are clear of infiltrates. The heart is enlarged. Bony and soft tissue structures of the chest wall are unremarkable. IMPRESSION: Cardiomegaly. Clear lungs.
--- NOTE | 2024-07-19 12:37 | PN ---
[facility] PROGRESS NOTE Date of Service: Jul 19, 2024 Time of Service: 12:34 SUBJECTIVE: 07/15 patient seen at bedside, no acute events overnight. She is still remains on BiPAP, saturating at 98%. Hemoglobin decreased from 9.1 down to 8.2, creatinine increased from 0.9 up to 1.1, troponins are downtrending, TSH mildly decreased at 0.23, we will order a free T4, remainder of her labs are relatively unremarkable. Further care per pulmonology recommendations. 07/16 patient seen at bedside, no acute events overnight. She is still requiring BiPAP therapy, still with prominent wheeze on auscultation. She has been mildly hypertensive, we will increase lisinopril to 40 mg daily. Cultures are no growth to date, continue with nebulizer and systemic steroids. Further recommendations per pulmonology 07/17 patient seen at bedside, no acute events overnight. Yesterday lactic acid began trending up patient was given a bolus with subsequent improvement. Potassium mildly elevated at 5.8 we will continue to monitor. Sputum growing Pseudomonas, she has been hypertensive, lisinopril was increased to 40 mg daily, WBC improved from 20.3 down to 11.5, hemoglobin improved from 8.8 up to 9.9, remainder of her labs are relatively unremarkable. We will follow up with pulmonology recommendations. Patient's IV infiltrated, we will have a midline placed 07/19 patient seen at bedside, no acute events overnight. Lactic acid has improved back to normal today. She remains on BiPAP overnight, was restarted on nasal cannula today and was saturating 98%. Nursing instructed to keep O2 sats around 92%. Patient has not ambulated with physical therapy, we will refer her to correction for aggressive rehab. Blood pressure was mildly elevated we will start nifedipine 30 mg twice daily. We will follow up with further pulmonology recommendations. 07/20 patient seen at bedside, no acute events overnight. Patient continues requiring low amount of O2 proximally 2 L nasal cannula. When off supplemental oxygen she tends to desaturate. We will try to wean and we will also perform a 6 minute walk today. Pending SNF placement REVIEW OF SYSTEMS 12 point review of systems negative unless noted in HPI PHYSICAL EXAM GENERAL APPEARANCE: The patient is awake, alert, and oriented, in no acute cardiopulmonary distress. NEUROLOGICAL: Cranial nerves II-XII grossly intact. Motor is 5/5 in bilateral upper and lower extremities proximal to distal. No sensory deficits. HEENT: Face is symmetric. Pupils are equal and reactive. Extraocular movements are intact. NECK: Supple. No JVD. No thyromegaly. No submental, submandibular, pre-/p ostauricular, occipital or supraclavicular lymphadenopathy. CHEST: Normal chest expansion. No Telemetry. LUNGS: Absence of any rales, rhonchi or any wheezing. CARDIOVASCULAR: Regular. S1 and S2 normal. No appreciable rubs, murmurs or gallops. ABDOMEN: Soft, nontender, and nondistended. There is no rebound, voluntary guarding, or rigidity. : Deferred. No Nelson. EXTREMITIES: Non-edematous and not cyanotic. No clubbing. Good capillary refill. SKIN: No skin breakdown. Vital Signs (last 8hr) Date Time Temp Pulse Resp B/P (MAP) Pulse Ox O2 Delivery O2 Flow Rate FiO2 07/19/24 11:34 97.7 60 18 129/75 95 Nasal Cannula 2.0 07/19/24 10:54 75 21 07/19/24 08:40 97 Nasal Cannula* 2 28 07/19/24 07:51 97.9 54 18 145/50 97 Nasal Cannula 2.0 07/19/24 06:20 77 21 07/19/24 05:19 65 26 30 07/19/24 04:46 158/90 LABS: Laboratory: Test 07/19/24 06:10 07/19/24 05:38 07/18/24 03:34 Range/Units White Blood Count 8.4 4.8-10.8 K/uL Red Blood Count 3.60 L 4.00-5.50 MIL/uL Hemoglobin 9.2 L 12.0-16.0 g/dL Hematocrit 30.2 L 36-48 % Mean Corpuscular Volume 83.9 79-99 fL Mean Corpuscular Hemoglobin 25.6 L 27.0-33.0 pg Mean Corpuscular Hemoglobin Concent 30.5 L 32.0-36.0 g/dL Red Cell Distribution Width 18.4 H 11.0-15.5 % Platelet Count 262 130-400 K/uL Mean Platelet Volume 10.9 H 7.5-10.5 fL Nucleated Red Blood Cells 0.0 0.0-0.19 % Sodium Level 144 136-145 mmol/L Potassium Level 3.9 3.5-5.1 mmol/L Chloride Level 108 101-111 mmol/L Carbon Dioxide Level 32 21-32 mmol/L Blood Urea Nitrogen 33 H 7-18 mg/dL Creatinine 0.7 0.5-1.0 mg/dL Glomerular Filtration Rate Calc 83 >90 mL/min Random Glucose 147 H 70-105 mg/dL Total Calcium 8.4 L 8.5-10.1 mg/dL Magnesium Level 2.10 1.80-2.40 mg/dL Total Bilirubin 0.2 0.2-1.0 mg/dL Aspartate Amino Transf (AST/SGOT) 26 10-37 U/L Alanine Aminotransferase (ALT/SGPT) 16 12-78 U/L Alkaline Phosphatase 79 50-136 U/L B-Type Natriuretic Peptide 360 H 0-100 pg/mL Total Protein 6.6 6.0-8.3 g/dL Albumin 2.4 L 3.5-5.0 g/dL Blood Gas Specimen Type Arterial Arterial Blood pH 7.420 7.350-7.450 Arterial Blood Partial Pressure CO2 46 H 32-45 mmHg Arterial Blood Partial Pressure O2 82.8 L 83.0-108.0 mmHg Arterial Blood HCO3 29.1 H 21.0-28.0 mmol/L Arterial Blood Oxygen Saturation 96.3 94.0-98.0 % Arterial Blood Base Excess 3.9 H -2.0-3.0 mmol/L Blood Gas Temperature 37.0 35.5-37.0 CELSIUS Blood Gas Respiration Rate 26.0 min. Blood Gas Vent Mode BIPAP 12,6 ROOM AIR FiO2 30.0 % Blood Gas Specimen Comment RN,LB Immature Granulocyte % (Auto) 1.3 H 0-1 % Neutrophils (%) (Auto) 86.0 H 40.0-77.0 % Lymphocytes (%) (Auto) 8.3 L 21.0-51.0 % Monocytes (%) (Auto) 4.3 3.0-13.0 % Eosinophils (%) (Auto) 0.0 0.0-8.0 % Basophils (%) (Auto) 0.1 0.0-5.0 % Neutrophils # (Auto) 9.8 H 1.8-7.7 K/uL Lymphocytes # (Auto) 0.9 L 1.0-4.8 K/uL Monocytes # (Auto) 0.5 0.1-1.0 K/uL Eosinophils # (Auto) 0.00 0.00-0.70 K/uL Basophils # (Auto) 0.01 0.00-0.20 K/uL Absolute Immature Granulocyte (auto 0.15 0-1 K/uL Current Medications Medications (Trade) Dose Ordered Sig/Parker Route PRN Reason Start Time Stop Time Status Last Admin Dose Admin Acetaminophen 100 ml @ 200 mls/hr Q12H PRN IVPB PAIN/ FEVER, 1-5 07/14/24 13:00 08/13/24 12:59 Acetaminophen (acetaMINOPHEN) 1,000 mg Q12H PRN IVPB PAIN/ FEVER, 1-5 07/14/24 12:00 07/14/24 12:47 DC Albuterol (DUOneb) 1 udvial [id number] 07/14/24 12:00 07/14/24 21:49 DC 07/14/24 19:15 1 UDVIAL Budesonide (Pulmicort 0.5 Mg/2ml) 0.5 mg BID IH 07/14/24 21:00 08/13/24 11:59 07/19/24 06:40 0.5 MG Budesonide (Pulmicort 0.5 Mg/2ml) 0.5 mg Q12H IH 07/14/24 12:00 07/14/24 12:58 DC Cefepime HCl (MAXipime 2 gm vial) 2 gm Q12H IVPB 07/14/24 12:00 07/24/24 11:59 07/19/24 11:38 2 GM Doxycycline Hyclate 250 ml @ 125 mls/hr Q12H IV 07/14/24 13:00 07/24/24 12:59 07/19/24 00:34 125 MLS/HR Enoxaparin Sodium (Lovenox) 30 mg DAILY SQ 07/15/24 09:00 08/14/24 08:59 07/19/24 08:27 30 MG Furosemide (LASix 20MG VIAL) 20 mg Q12H IV 07/14/24 12:30 07/18/24 01:00 DC 07/18/24 00:14 20 MG Guaifenesin/ Dextromethorphan (RobiTUSSin DM 200/20MG 10ML) 10 ml Q6H PRN PO COUGH 07/14/24 17:30 08/13/24 17:29 Insulin Human Regular (humuLIN R 100 UNIT/ML 3ML) INSULIN SLIDING SCAL... ACHS SQ 07/14/24 16:30 08/13/24 16:29 Ipratropium Hancock (AtrovENT UD) 0.5 MG [id number] IH 07/15/24 00:00 08/14/24 00:00 07/19/24 10:51 0.5 MG Lactated Ringer's 2,229 ml @ 371.5 mls/ hr Q6H IV 07/17/24 06:00 07/17/24 11:59 DC 07/17/24 05:42 371.5 MLS/HR Lisinopril (Prinivil 10mg) 10 mg DAILY PO 07/15/24 09:00 07/16/24 12:14 DC 07/16/24 08:37 10 MG Lisinopril (Prinivil 40mg) 40 mg DAILY PO 07/17/24 09:00 08/16/24 08:59 07/19/24 08:27 40 MG Magnesium Sulfate 50 ml @ 0 mls/hr PROTOCOL IV 07/14/24 12:00 08/13/24 11:59 Methylprednisolone Sodium Succinate (Solu-medROL 40MG) 20 mg Q12H IVP 07/16/24 12:30 08/13/24 22:59 07/19/24 11:38 20 MG Methylprednisolone Sodium Succinate (Solu-medROL 40MG) 40 mg Q8H IVP 07/14/24 23:00 07/16/24 12:08 DC 07/16/24 08:33 40 MG Methylprednisolone Sodium Succinate (Solu-medROL 40MG) 60 mg Q8H IVP 07/14/24 15:00 07/14/24 21:46 DC 07/14/24 16:09 60 MG Montelukast Sodium (SinguLAIR) 10 mg DAILY PO 07/15/24 09:00 08/14/24 08:59 07/19/24 08:27 10 MG Nifedipine (adALAT 30MG) 30 mg BID PO 07/18/24 13:00 07/19/24 07:11 DC 07/18/24 21:19 30 MG Nifedipine (adALAT 30MG) 60 mg BID PO 07/19/24 09:00 08/18/24 08:59 07/19/24 08:28 60 MG Nystatin (NystOP 15 GM POWDER) apply to abdominal fold ... BID TP 07/16/24 21:00 08/15/24 20:59 07/19/24 08:28 1 APPL Ondansetron HCl (zoFRAN 4MG INJ) 4 mg Q6H PRN IVP NAUSEA/VOMITING 07/14/24 12:00 08/13/24 11:59 Pantoprazole Sodium (PROTonix 40MG INJ) 40 mg Q24H IVP 07/14/24 12:00 08/13/24 11:59 07/19/24 11:38 40 MG Potassium Chloride 100 ml @ 100 mls/hr AD PRN IV POTASSIUM PROTOCOL 07/14/24 12:00 08/13/24 11:59 Potassium Chloride (K-Dur/Klor-Con 20meq) 20 meq AD PRN PO POTASSIUM PROTOCOL 07/14/24 12:00 08/13/24 11:59 Potassium Chloride (KCl 10% Elixir 20meq/15ml) 20 meq AD PRN PO POTASSIUM PROTOCOL 07/14/24 12:00 08/13/24 11:59 Thiamine HCl (Vitamin B-1) 100 mg DAILY IVP 07/15/24 09:00 07/18/24 09:00 DC 07/18/24 09:44 100 MG Vancomycin HCl 250 ml @ 125 mls/hr Q24H IV 07/15/24 15:00 07/15/24 10:52 DC Vancomycin HCl (Vancomycin Protocol) 1 each AD IV 07/14/24 12:00 07/15/24 10:54 DC Wound Care/ Dressing Products (Venelex Ointment) 1 APPL BID TP 07/16/24 21:00 08/15/24 20:59 07/19/24 08:28 1 GM DIAGNOSTICS / RADIOLOGY: [ ] ASSESSMENT: Severe acute hypoxemic respiratory failure, POA Acute hypercapnic respiratory failure with respiratory acidosis, POA Acute COPD exacerbation, POA Suspected developing community-acquired pneumonia, POA Rule out diastolic heart failure exacerbation, POA Type 2 NSTEMI, secondary to underlying respiratory failure, POA Hypertension, POA Hyperlipidemia, POA Moderate protein calorie malnutrition, POA Frailty/debility/deconditioning, POA Underlying history of anemia, POA PLAN: Continue with CPAP therapy Continue with Solu-Medrol Start nifedipine 30 mg twice daily Continue lisinopril 40 mg daily Continue broad-spectrum antibiotics with cefepime/doxycycline Sputum growing Pseudomonas Continue Lasix 20 mg q.12 hours Echo showing normal EF 50-55%, stage I diastolic dysfunction We will request consultation with Cardiology and pulmonology Continue aspiration precautions Home medications will be reconciled and updated Disposition: Pending placement to SNF MARCELA BOONE MD Jul 19, 2024 12:37
[2024-07-19 16:18] LABS: INR 1.01 (0.85-1.15); PROTHROMBIN TIME 11.3 SEC (9.6-11.6)
[2024-07-19 16:20] LABS: PARTIAL THROMBOPLASTIN TIME 23.9 SEC (26.3-35.5)
--- NOTE | 2024-07-19 17:29 | PN ---
[facility] PROGRESS NOTE Date Patient Seen: Jul 19, 2024 Time of Visit: 17:28 Supervising Physician: Dr. Martin Primary Care Physician: Mary Aguilera MD Outpatient Specialists: Inpatient Consults: DR ERNESTINE MORA, DR CHAPITO LAUGHLIN PROBLEM LIST: Acute hypercarbic hypoxic respiratory failure on admission Acute COPD exacerbation Community acquired pneumonia Acute on chronic diastolic heart failure Moderate pulmonary hypertension 46 mm/Hg Acute non ST elevation myocardial infarction type 2 secondary to metabolic demand on admission Underlying hyperlipidemia Anemia of chronic disease INTERVAL HISTORY: 07/19 patient is awake up in the chair at the bedside commode. She is very hard of hearing. She is following commands appropriately. She is on 2 L nasal cannula with sats 93%. Blood pressure 127/50. Heart rate is 64. T-max is 98.1. Patient is to continue with current regimen antibiotics. We can change the steroid to p.o. Otherwise, ready to transfer to SNF when accepted. Transfer to [facility]. REVIEW OF SYSTEMS: 12 point ROS reviewed with patient. Pertinent positives mentioned above. Otherwise negative. PHYSICAL EXAM: GENERAL: alert, weak, awake oriented x 2 HEENT: EOMI, Sclera non icteric, moist mucosa NECK: Supple, no JVD, trachea midline LUNGS: Her lungs show decreased air entry bilaterally at the bases however, no wheezing or rhonchi noted. HEART: Regular rate and rhythm. Normal S1 and S2, without murmurs ABD: Abdomen soft, nontender. Bowel sounds present EXT: No clubbing cyanosis or edema NEURO: Alert and oriented to person, follows commands Vital Signs (last 8hr) Date Time Temp Pulse Resp B/P (MAP) Pulse Ox O2 Delivery O2 Flow Rate FiO2 07/19/24 16:18 98.1 64 18 127/50 93 Nasal Cannula 2.0 07/19/24 11:34 97.7 60 18 129/75 95 Nasal Cannula 2.0 07/19/24 10:54 75 21 LABS: Hematology Labs: Test 07/19/24 06:10 07/18/24 03:34 Range/Units White Blood Count 8.4 4.8-10.8 K/uL Red Blood Count 3.60 L 4.00-5.50 MIL/uL Hemoglobin 9.2 L 12.0-16.0 g/dL Hematocrit 30.2 L 36-48 % Mean Corpuscular Volume 83.9 79-99 fL Mean Corpuscular Hemoglobin 25.6 L 27.0-33.0 pg Mean Corpuscular Hemoglobin Concent 30.5 L 32.0-36.0 g/dL Red Cell Distribution Width 18.4 H 11.0-15.5 % Platelet Count 262 130-400 K/uL Mean Platelet Volume 10.9 H 7.5-10.5 fL Nucleated Red Blood Cells 0.0 0.0-0.19 % Immature Granulocyte % (Auto) 1.3 H 0-1 % Neutrophils (%) (Auto) 86.0 H 40.0-77.0 % Lymphocytes (%) (Auto) 8.3 L 21.0-51.0 % Monocytes (%) (Auto) 4.3 3.0-13.0 % Eosinophils (%) (Auto) 0.0 0.0-8.0 % Basophils (%) (Auto) 0.1 0.0-5.0 % Neutrophils # (Auto) 9.8 H 1.8-7.7 K/uL Lymphocytes # (Auto) 0.9 L 1.0-4.8 K/uL Monocytes # (Auto) 0.5 0.1-1.0 K/uL Eosinophils # (Auto) 0.00 0.00-0.70 K/uL Basophils # (Auto) 0.01 0.00-0.20 K/uL Absolute Immature Granulocyte (auto 0.15 0-1 K/uL Chemistry Labs: Test 07/19/24 06:10 Range/Units Sodium Level 144 136-145 mmol/L Potassium Level 3.9 3.5-5.1 mmol/L Chloride Level 108 101-111 mmol/L Carbon Dioxide Level 32 21-32 mmol/L Blood Urea Nitrogen 33 H 7-18 mg/dL Creatinine 0.7 0.5-1.0 mg/dL Glomerular Filtration Rate Calc 83 >90 mL/min Random Glucose 147 H 70-105 mg/dL Total Calcium 8.4 L 8.5-10.1 mg/dL Magnesium Level 2.10 1.80-2.40 mg/dL Total Bilirubin 0.2 0.2-1.0 mg/dL Aspartate Amino Transf (AST/SGOT) 26 10-37 U/L Alanine Aminotransferase (ALT/SGPT) 16 12-78 U/L Alkaline Phosphatase 79 50-136 U/L B-Type Natriuretic Peptide 360 H 0-100 pg/mL Total Protein 6.6 6.0-8.3 g/dL Albumin 2.4 L 3.5-5.0 g/dL Coagulation Labs: Test 07/19/24 15:41 Range/Units Prothrombin Time 11.3 9.6-11.6 SEC Prothromb Time International Ratio 1.01 0.85-1.15 Activated Partial Thromboplast Time 23.9 L 26.3-35.5 SEC DIAGNOSTICS / RADIOLOGY RESULTS: [ ] PLAN Plan for discharge to SNF once stable continue on supplemental oxygen patient will require home oxygen continue BiPAP as indicated NEURO: Minimize central acting medications as possible. Maintain fall precautions, adequate lighting during the day PULMONARY: Supplemental 02 as needed. Maintain aspiration precautions at all times CARDIOVASCULAR: Follow hemodynamics. Vital signs per facility protocol GI & NUTRITION: Continue with nutritional support. Continue stool softeners and laxatives as needed. KIDNEYS & ELECTROLYTES: Strict monitoring of intake, output and overall fluid balance. Avoid nephrotoxic medications to the extent possible. Medications to be dosed according to renal function. Monitor electrolytes and replace as needed ENDOCRINE: Maintain blood glucose between 100-180 at all times. Hypoglycemia protocol in place INFECTIOUS DISEASE: Trend temperature, WBC and procalcitonin level Follow cultures, deescalate antibiotics as soon as possible. Panculture if new onset fever ONCOLOGY/HEMATOLOGY/COAGULATION: Monitor for s/s of bleeding Monitor hemoglobin, coagulation studies as needed SKIN: Pressure ulcer prevention per facility protocol Specialty mattress ORTHO/REHAB: Continue PT/OT Prophylaxis: Continue GI and DVT prophylaxis Code Status: Full Resuscitation Disposition: as per primary, plan for SNF ATTESTATION BY PHYSICIAN Clinical note was scribed by my certified medical aide and I attest to the Clinical accuracy of the note. AYSHA LAUGHLIN MD, [facility] Jul 19, 2024 17:29
--- NOTE | 2024-07-19 19:45 | HMCIMG ---
Exam Type: US VENOUS DOPPLER UNILATERAL Clinical Information: R/O THROMBUS Comparison: None Findings: The examination shows nonocclusive thrombosis of the cephalic vein bilaterally. The rest of the venous structures evaluated shows no evidence of thrombosis. IMPRESSION: Thrombus as noted.
[2024-07-19] MEDS: predniSONE 20 MG TABLET PO SCH (20:39)
--- NOTE | 2024-07-19 21:00 | NUR ---
BLOOD SUGAR 124
[2024-07-20] VITALS (19 sets, daily range): BP systolic 141–161; BP diastolic 39–63; PULSE 60–77; RESP 18–28; TEMP 97.5–98.5; O2SAT 93–99
--- NOTE | 2024-07-20 05:39 | NUR ---
BLOOD SUGAR 138
--- NOTE | 2024-07-20 13:45 | PN ---
[facility] PROGRESS NOTE Date of Service: Jul 20, 2024 Time of Service: 13:44 SUBJECTIVE: 07/15 patient seen at bedside, no acute events overnight. She is still remains on BiPAP, saturating at 98%. Hemoglobin decreased from 9.1 down to 8.2, creatinine increased from 0.9 up to 1.1, troponins are downtrending, TSH mildly decreased at 0.23, we will order a free T4, remainder of her labs are relatively unremarkable. Further care per pulmonology recommendations. 07/16 patient seen at bedside, no acute events overnight. She is still requiring BiPAP therapy, still with prominent wheeze on auscultation. She has been mildly hypertensive, we will increase lisinopril to 40 mg daily. Cultures are no growth to date, continue with nebulizer and systemic steroids. Further recommendations per pulmonology 07/17 patient seen at bedside, no acute events overnight. Yesterday lactic acid began trending up patient was given a bolus with subsequent improvement. Potassium mildly elevated at 5.8 we will continue to monitor. Sputum growing Pseudomonas, she has been hypertensive, lisinopril was increased to 40 mg daily, WBC improved from 20.3 down to 11.5, hemoglobin improved from 8.8 up to 9.9, remainder of her labs are relatively unremarkable. We will follow up with pulmonology recommendations. Patient's IV infiltrated, we will have a midline placed 07/19 patient seen at bedside, no acute events overnight. Lactic acid has improved back to normal today. She remains on BiPAP overnight, was restarted on nasal cannula today and was saturating 98%. Nursing instructed to keep O2 sats around 92%. Patient has not ambulated with physical therapy, we will refer her to halfway for aggressive rehab. Blood pressure was mildly elevated we will start nifedipine 30 mg twice daily. We will follow up with further pulmonology recommendations. 07/20 patient seen at bedside, no acute events overnight. Patient continues requiring low amount of O2 proximally 2 L nasal cannula. When off supplemental oxygen she tends to desaturate. We will try to wean and we will also perform a 6 minute walk today. Pending SNF placement 07/20 patient is seen bedside, no acute events overnight, remains on 2 L via nasal cannula, saturating 98%. Pending SNF placement. Family at bedside, updated. REVIEW OF SYSTEMS 12 point review of systems negative unless noted in HPI PHYSICAL EXAM GENERAL APPEARANCE: The patient is awake, alert, and oriented, in no acute cardiopulmonary distress. NEUROLOGICAL: Cranial nerves II-XII grossly intact. Motor is 5/5 in bilateral upper and lower extremities proximal to distal. No sensory deficits. HEENT: Face is symmetric. Pupils are equal and reactive. Extraocular movements are intact. NECK: Supple. No JVD. No thyromegaly. No submental, submandibular, pre- /postauricular, occipital or supraclavicular lymphadenopathy. CHEST: Normal chest expansion. No Telemetry. LUNGS: Absence of any rales, rhonchi or any wheezing. CARDIOVASCULAR: Regular. S1 and S2 normal. No appreciable rubs, murmurs or gallops. ABDOMEN: Soft, nontender, and nondistended. There is no rebound, voluntary guarding, or rigidity. : Deferred. No Nelson. EXTREMITIES: Non-edematous and not cyanotic. No clubbing. Good capillary refill. SKIN: No skin breakdown. Vital Signs (last 8hr) Date Time Temp Pulse Resp B/P (MAP) Pulse Ox O2 Delivery O2 Flow Rate FiO2 07/20/24 11:46 67 20 07/20/24 11:45 97.5 71 18 155/57 93 Room Air 07/20/24 09:14 96 Nasal Cannula* 2 28 07/20/24 08:20 65 20 N/Cannula Low lpm 1.0 07/20/24 08:07 97.9 71 20 151/56 92 Room Air 07/20/24 07:03 61 20 LABS: Laboratory: Test 07/20/24 11:34 07/19/24 15:41 07/19/24 06:10 07/19/24 05:38 Range/Units Whole Blood Glucose 106 70-110 MG/DL Prothrombin Time 11.3 9.6-11.6 SEC Prothromb Time International Ratio 1.01 0.85-1.15 Activated Partial Thromboplast Time 23.9 L 26.3-35.5 SEC White Blood Count 8.4 4.8-10.8 K/uL Red Blood Count 3.60 L 4.00-5.50 MIL/uL Hemoglobin 9.2 L 12.0-16.0 g/dL Hematocrit 30.2 L 36-48 % Mean Corpuscular Volume 83.9 79-99 fL Mean Corpuscular Hemoglobin 25.6 L 27.0-33.0 pg Mean Corpuscular Hemoglobin Concent 30.5 L 32.0-36.0 g/dL Red Cell Distribution Width 18.4 H 11.0-15.5 % Platelet Count 262 130-400 K/uL Mean Platelet Volume 10.9 H 7.5-10.5 fL Nucleated Red Blood Cells 0.0 0.0-0.19 % Sodium Level 144 136-145 mmol/L Potassium Level 3.9 3.5-5.1 mmol/L Chloride Level 108 101-111 mmol/L Carbon Dioxide Level 32 21-32 mmol/L Blood Urea Nitrogen 33 H 7-18 mg/dL Creatinine 0.7 0.5-1.0 mg/dL Glomerular Filtration Rate Calc 83 >90 mL/min Random Glucose 147 H 70-105 mg/dL Total Calcium 8.4 L 8.5-10.1 mg/dL Magnesium Level 2.10 1.80-2.40 mg/dL Total Bilirubin 0.2 0.2-1.0 mg/dL Aspartate Amino Transf (AST/SGOT) 26 10-37 U/L Alanine Aminotransferase (ALT/SGPT) 16 12-78 U/L Alkaline Phosphatase 79 50-136 U/L B-Type Natriuretic Peptide 360 H 0-100 pg/mL Total Protein 6.6 6.0-8.3 g/dL Albumin 2.4 L 3.5-5.0 g/dL Blood Gas Specimen Type Arterial Arterial Blood pH 7.420 7.350-7.450 Arterial Blood Partial Pressure CO2 46 H 32-45 mmHg Arterial Blood Partial Pressure O2 82.8 L 83.0-108.0 mmHg Arterial Blood HCO3 29.1 H 21.0-28.0 mmol/L Arterial Blood Oxygen Saturation 96.3 94.0-98.0 % Arterial Blood Base Excess 3.9 H -2.0-3.0 mmol/L Blood Gas Temperature 37.0 35.5-37.0 CELSIUS Blood Gas Respiration Rate 26.0 min. Blood Gas Vent Mode BIPAP 12,6 ROOM AIR FiO2 30.0 % Blood Gas Specimen Comment RN,LB Current Medications Medications (Trade) Dose Ordered Sig/Parker Route PRN Reason Start Time Stop Time Status Last Admin Dose Admin Acetaminophen 100 ml @ 200 mls/hr Q12H PRN IVPB PAIN/ FEVER, 1-5 07/14/24 13:00 08/13/24 12:59 Acetaminophen (acetaMINOPHEN) 1,000 mg Q12H PRN IVPB PAIN/ FEVER, 1-5 07/14/24 12:00 07/14/24 12:47 DC Albuterol (DUOneb) 1 udvial [id number] IH 07/14/24 12:00 07/14/24 21:49 DC 07/14/24 19:15 1 UDVIAL Budesonide (Pulmicort 0.5 Mg/2ml) 0.5 mg BID IH 07/14/24 21:00 08/13/24 11:59 07/19/24 19:05 0.5 MG Budesonide (Pulmicort 0.5 Mg/2ml) 0.5 mg Q12H IH 07/14/24 12:00 07/14/24 12:58 DC Cefepime HCl (MAXipime 2 gm vial) 2 gm Q12H IVPB 07/14/24 12:00 07/24/24 11:59 07/20/24 12:38 2 GM Doxycycline Hyclate 250 ml @ 125 mls/hr Q12H IV 07/14/24 13:00 07/24/24 12:59 07/20/24 00:45 125 MLS/HR Enoxaparin Sodium (Lovenox) 30 mg DAILY SQ 07/15/24 09:00 08/14/24 08:59 07/20/24 09:05 30 MG Furosemide (LASix 20MG VIAL) 20 mg Q12H IV 07/14/24 12:30 07/18/24 01:00 DC 07/18/24 00:14 20 MG Guaifenesin/ Dextromethorphan (RobiTUSSin DM 200/20MG 10ML) 10 ml Q6H PRN PO COUGH 07/14/24 17:30 08/13/24 17:29 Insulin Human Regular (humuLIN R 100 UNIT/ML 3ML) INSULIN SLIDING SCAL... ACHS SQ 07/14/24 16:30 08/13/24 16:29 Ipratropium [place] (AtrovENT UD) 0.5 MG [id number] IH 07/15/24 00:00 08/14/24 00:00 07/20/24 11:45 0.5 MG Lactated Ringer's 2,229 ml @ 371.5 mls/ hr Q6H IV 07/17/24 06:00 07/17/24 11:59 DC 07/17/24 05:42 371.5 MLS/HR Lisinopril (Prinivil 10mg) 10 mg DAILY PO 07/15/24 09:00 07/16/24 12:14 DC 07/16/24 08:37 10 MG Lisinopril (Prinivil 40mg) 40 mg DAILY PO 07/17/24 09:00 08/16/24 08:59 07/20/24 12:38 40 MG Magnesium Sulfate 50 ml @ 0 mls/hr PROTOCOL IV 07/14/24 12:00 08/13/24 11:59 Methylprednisolone Sodium Succinate (Solu-medROL 40MG) 20 mg Q12H IVP 07/16/24 12:30 07/19/24 17:27 DC 07/19/24 11:38 20 MG Methylprednisolone Sodium Succinate (Solu-medROL 40MG) 40 mg Q8H IVP 07/14/24 23:00 07/16/24 12:08 DC 07/16/24 08:33 40 MG Methylprednisolone Sodium Succinate (Solu-medROL 40MG) 60 mg Q8H IVP 07/14/24 15:00 07/14/24 21:46 DC 07/14/24 16:09 60 MG Montelukast Sodium (SinguLAIR) 10 mg DAILY PO 07/15/24 09:00 08/14/24 08:59 07/20/24 09:05 10 MG Nifedipine (adALAT 30MG) 30 mg BID PO 07/18/24 13:00 07/19/24 07:11 DC 07/18/24 21:19 30 MG Nifedipine (adALAT 30MG) 60 mg BID PO 07/19/24 09:00 08/18/24 08:59 07/20/24 09:06 60 MG Nystatin (NystOP 15 GM POWDER) apply to abdominal fold ... BID TP 07/16/24 21:00 08/15/24 20:59 07/20/24 09:06 1 APPL Ondansetron HCl (zoFRAN 4MG INJ) 4 mg Q6H PRN IVP NAUSEA/VOMITING 07/14/24 12:00 08/13/24 11:59 Pantoprazole Sodium (PROTonix 40MG INJ) 40 mg Q24H IVP 07/14/24 12:00 08/13/24 11:59 07/20/24 12:38 40 MG Potassium Chloride 100 ml @ 100 mls/hr AD PRN IV POTASSIUM PROTOCOL 07/14/24 12:00 08/13/24 11:59 Potassium Chloride (K-Dur/Klor-Con 20meq) 20 meq AD PRN PO POTASSIUM PROTOCOL 07/14/24 12:00 08/13/24 11:59 Potassium Chloride (KCl 10% Elixir 20meq/15ml) 20 meq AD PRN PO POTASSIUM PROTOCOL 07/14/24 12:00 08/13/24 11:59 Prednisone (deltaSONE/ oraSONE 20MG TAB) 20 mg BID PO 07/19/24 21:00 07/26/24 20:59 07/20/24 09:06 20 MG Thiamine HCl (Vitamin B-1) 100 mg DAILY IVP 07/15/24 09:00 07/18/24 09:00 DC 07/18/24 09:44 100 MG Vancomycin HCl 250 ml @ 125 mls/hr Q24H IV 07/15/24 15:00 07/15/24 10:52 DC Vancomycin HCl (Vancomycin Protocol) 1 each AD IV 07/14/24 12:00 07/15/24 10:54 DC Wound Care/ Dressing Products (Venelex Ointment) 1 APPL BID TP 07/16/24 21:00 08/15/24 20:59 07/20/24 09:07 1 GM DIAGNOSTICS / RADIOLOGY: [ ] ASSESSMENT: Severe acute hypoxemic respiratory failure, POA Acute hypercapnic respiratory failure with respiratory acidosis, POA Acute COPD exacerbation, POA Suspected developing community-acquired pneumonia, POA Rule out diastolic heart failure exacerbation, POA Type 2 NSTEMI, secondary to underlying respiratory failure, POA Hypertension, POA Hyperlipidemia, POA Moderate protein calorie malnutrition, POA Frailty/debility/deconditioning, POA Underlying history of anemia, POA PLAN: Continue with CPAP therapy Continue with Solu-Medrol Start nifedipine 30 mg twice daily Continue lisinopril 40 mg daily Continue broad-spectrum antibiotics with cefepime/doxycycline Sputum growing Pseudomonas Continue Lasix 20 mg q.12 hours Echo showing normal EF 50-55%, stage I diastolic dysfunction We will request consultation with Cardiology and pulmonology Continue aspiration precautions Home medications will be reconciled and updated Disposition: Pending placement to SNF GIO RAYMOND MD Jul 20, 2024 13:45
--- NOTE | 2024-07-20 17:30 | NUR ---
RECEIVED TRANSFER FROM PCCU. PATIENT IS ALERT, ORIENTED IN PERSON, PLACE AND TIME. HARD OF HEARING. PIV ON LEFT WRIST 22 G. PATENT AND FLUSHED. VITAL SIGNS TEMPERATURE 97.9, BLOOD PRESSURE 147/40 MMHG, PULSE 77 P/MIN, RESPIRATIONS 18 P/MIN, PATIENT HAS A NASAL CANULA @ 2LTS. BOWEL SOUNDS PRESENT IN ALL FOUR ABDOMINAL QUADRANTS. HEMATOMAS TO BOTH ARMS AND EDEMA. NO SIGNS OF RESPIRATORY DISTRESS NOTED AT THIS TIME.
--- NOTE | 2024-07-20 19:30 | PN ---
[facility] PROGRESS NOTE Date Patient Seen: Jul 20, 2024 Time of Visit: 19:27 Supervising Physician: NANETTE MASSEY MD Primary Care Physician: Mary Aguilera MD Outpatient Specialists: Inpatient Consults: DR ERNESTINE MORA, DR CHAPITO LAUGHLIN PROBLEM LIST: Acute hypercarbic hypoxic respiratory failure on admission Acute COPD exacerbation Community acquired pneumonia Acute on chronic diastolic heart failure Moderate pulmonary hypertension 46 mm/Hg Acute non ST elevation myocardial infarction type 2 secondary to metabolic demand on admission Underlying hyperlipidemia Anemia of chronic disease INTERVAL HISTORY: 07/20/2024 Mrs. Jasmine is doing very well today. She is pleasantly resting and watching television She is on 2 L/min occasional cough, no congestion, no distress patient with functional quadriplegia and generalized weakness no fevers, no chills, no nausea good appetite. REVIEW OF SYSTEMS: 12 point ROS reviewed with patient. Pertinent positives mentioned above. Otherwise negative. PHYSICAL EXAM: GENERAL: alert, weak, awake oriented x 2 HEENT: EOMI, Sclera non icteric, moist mucosa NECK: Supple, no JVD, trachea midline LUNGS: Her lungs show decreased air entry bilaterally at the bases however, no wheezing or rhonchi noted. HEART: Regular rate and rhythm. Normal S1 and S2, without murmurs ABD: Abdomen soft, nontender. Bowel sounds present EXT: No clubbing cyanosis or edema NEURO: Alert and oriented to person, follows commands Vital Signs (last 8hr) Date Time Temp Pulse Resp B/P (MAP) Pulse Ox O2 Delivery O2 Flow Rate FiO2 07/20/24 19:00 63 20 N/Cannula Low lpm 2.0 07/20/24 18:55 63 20 07/20/24 17:33 97.9 77 18 147/39 100 Nasal Cannula 2.0 07/20/24 16:35 98.1 73 18 144/57 95 Nasal Cannula 1.0 07/20/24 16:25 96 Nasal Cannula* 2 07/20/24 11:46 67 20 07/20/24 11:45 97.5 71 18 155/57 93 Room Air LABS: Hematology Labs: Test 07/19/24 06:10 Range/Units White Blood Count 8.4 4.8-10.8 K/uL Red Blood Count 3.60 L 4.00-5.50 MIL/uL Hemoglobin 9.2 L 12.0-16.0 g/dL Hematocrit 30.2 L 36-48 % Mean Corpuscular Volume 83.9 79-99 fL Mean Corpuscular Hemoglobin 25.6 L 27.0-33.0 pg Mean Corpuscular Hemoglobin Concent 30.5 L 32.0-36.0 g/dL Red Cell Distribution Width 18.4 H 11.0-15.5 % Platelet Count 262 130-400 K/uL Mean Platelet Volume 10.9 H 7.5-10.5 fL Nucleated Red Blood Cells 0.0 0.0-0.19 % Chemistry Labs: Test 07/20/24 15:38 07/19/24 06:10 Range/Units Whole Blood Glucose 146 H 70-110 MG/DL Sodium Level 144 136-145 mmol/L Potassium Level 3.9 3.5-5.1 mmol/L Chloride Level 108 101-111 mmol/L Carbon Dioxide Level 32 21-32 mmol/L Blood Urea Nitrogen 33 H 7-18 mg/dL Creatinine 0.7 0.5-1.0 mg/dL Glomerular Filtration Rate Calc 83 >90 mL/min Random Glucose 147 H 70-105 mg/dL Total Calcium 8.4 L 8.5-10.1 mg/dL Magnesium Level 2.10 1.80-2.40 mg/dL Total Bilirubin 0.2 0.2-1.0 mg/dL Aspartate Amino Transf (AST/SGOT) 26 10-37 U/L Alanine Aminotransferase (ALT/SGPT) 16 12-78 U/L Alkaline Phosphatase 79 50-136 U/L B-Type Natriuretic Peptide 360 H 0-100 pg/mL Total Protein 6.6 6.0-8.3 g/dL Albumin 2.4 L 3.5-5.0 g/dL Coagulation Labs: Test 07/19/24 15:41 Range/Units Prothrombin Time 11.3 9.6-11.6 SEC Prothromb Time International Ratio 1.01 0.85-1.15 Activated Partial Thromboplast Time 23.9 L 26.3-35.5 SEC DIAGNOSTICS / RADIOLOGY RESULTS: [ Imaging scans reviewed at bedside ] PLAN Hemodynamically stable from pulmonary standpoint for transfer to [facility] facility patient to continue on supplemental oxygen NEURO: Minimize central acting medications as possible. Maintain fall precautions, adequate lighting during the day PULMONARY: Supplemental 02 as needed. Maintain aspiration precautions at all times CARDIOVASCULAR: Follow hemodynamics. Vital signs per facility protocol GI & NUTRITION: Continue with nutritional support. Continue stool softeners and laxatives as needed. KIDNEYS & ELECTROLYTES: Strict monitoring of intake, output and overall fluid balance. Avoid nephrotoxic medications to the extent possible. Medications to be dosed according to renal function. Monitor electrolytes and replace as needed ENDOCRINE: Maintain blood glucose between 100-180 at all times. Hypoglycemia protocol in place INFECTIOUS DISEASE: Trend temperature, WBC and procalcitonin level Follow cultures, deescalate antibiotics as soon as possible. Panculture if new onset fever ONCOLOGY/HEMATOLOGY/COAGULATION: Monitor for s/s of bleeding Monitor hemoglobin, coagulation studies as needed SKIN: Pressure ulcer prevention per facility protocol Specialty mattress ORTHO/REHAB: Continue PT/OT Prophylaxis: Continue GI and DVT prophylaxis Code Status: Full Resuscitation Disposition: as per primary, plan for SNF ATTESTATION BY PHYSICIAN Clinical note was scribed by Dustin Molina medical customer service representative. I can attest to the accuracy and veracity of the note NANETTE MASSEY MD I personally scribed for NANETTE MASSEY MD ([email or web address]) on 07/20/24 at 19:30. Electronically submitted by Dustin Molina ([email or web address]). NANETTE MASSEY MD Jul 20, 2024 19:30
[2024-07-21] VITALS (13 sets, daily range): BP systolic 142–179; BP diastolic 41–80; PULSE 66–74; RESP 18–20; TEMP 97.6–98.1; O2SAT 95–98
--- NOTE | 2024-07-21 01:10 | NUR ---
NURSING OBSERVATION/ PULMONARY PT REQUESTING TO HAVE BIPAP REMOVED, PLACED PT BACK ON 02 AT 2L N/C, R.T. NOTIFIED.
[2024-07-21 05:08] LABS: HEMATOCRIT 29.5 % (36-48); MEAN CORPUSCULAR HEMOGLOBIN 25.6 pg (27.0-33.0); MEAN CORPUSCULAR HGB CONC 31.2 g/dL (32.0-36.0); MEAN CORPUSCULAR VOLUME 82.2 fL (79-99); RED BLOOD CELL COUNT(AUTO) 3.59 MIL/uL (4.00-5.50); RED CELL DISTRIBUTION WIDTH 18.3 % (11.0-15.5); WHITE BLOOD COUNT (AUTO) 9.4 K/uL (4.8-10.8)
[2024-07-21 05:19] LABS: INR 1.04 (0.85-1.15); PROTHROMBIN TIME 11.6 SEC (9.6-11.6)
[2024-07-21 05:21] LABS: PARTIAL THROMBOPLASTIN TIME 27.7 SEC (26.3-35.5)
[2024-07-21 05:24] LABS: ALBUMIN 2.2 g/dL (3.5-5.0); BILIRUBIN,TOTAL 0.3 mg/dL (0.2-1.0); CREATININE 0.7 mg/dL (0.5-1.0); MAGNESIUM 2.2 mg/dL (1.80-2.40); POTASSIUM 4.1 mmol/L (3.5-5.1); TOTAL PROTEIN, SERUM 6.2 g/dL (6.0-8.3)
--- NOTE | 2024-07-21 15:02 | PN ---
[facility] PROGRESS NOTE Date of Service: Jul 21, 2024 Time of Service: 15:01 SUBJECTIVE: 07/15 patient seen at bedside, no acute events overnight. She is still remains on BiPAP, saturating at 98%. Hemoglobin decreased from 9.1 down to 8.2, creatinine increased from 0.9 up to 1.1, troponins are downtrending, TSH mildly decreased at 0.23, we will order a free T4, remainder of her labs are relatively unremarkable. Further care per pulmonology recommendations. 07/16 patient seen at bedside, no acute events overnight. She is still requiring BiPAP therapy, still with prominent wheeze on auscultation. She has been mildly hypertensive, we will increase lisinopril to 40 mg daily. Cultures are no growth to date, continue with nebulizer and systemic steroids. Further recommendations per pulmonology 07/17 patient seen at bedside, no acute events overnight. Yesterday lactic acid began trending up patient was given a bolus with subsequent improvement. Potassium mildly elevated at 5.8 we will continue to monitor. Sputum growing Pseudomonas, she has been hypertensive, lisinopril was increased to 40 mg daily, WBC improved from 20.3 down to 11.5, hemoglobin improved from 8.8 up to 9.9, remainder of her labs are relatively unremarkable. We will follow up with pulmonology recommendations. Patient's IV infiltrated, we will have a midline placed 07/19 patient seen at bedside, no acute events overnight. Lactic acid has improved back to normal today. She remains on BiPAP overnight, was restarted on nasal cannula today and was saturating 98%. Nursing instructed to keep O2 sats around 92%. Patient has not ambulated with physical therapy, we will [facility] her [facility]. Blood pressure was mildly elevated we will start nifedipine 30 mg twice daily. We will follow up with further pulmonology recommendations. 07/20 patient seen at bedside, no acute events overnight. Patient continues requiring low amount of O2 proximally 2 L nasal cannula. When off supplemental oxygen she tends to desaturate. We will try to wean and we will also perform a 6 minute walk today. Pending SNF placement 07/20 patient is seen bedside, no acute events overnight, remains on 2 L via nasal cannula, saturating 98%. Pending SNF placement. Family at bedside, updated. 07/21 patient is seen and examined during my rounding, no acute events overnight, hemodynamically stable, BP 151/80, afebrile, saturating 98% 2 L nasal cannula. Hemoglobin stable at 9.2, WBC within normal range at 9.4. Rest of blood work unremarkable. Pending insurance approval for the patient to be discharged to prison facility. REVIEW OF SYSTEMS 12 point review of systems negative unless noted in HPI PHYSICAL EXAM GENERAL APPEARANCE: The patient is awake, alert, and oriented, in no acute cardiopulmonary distress. NEUROLOGICAL: Cranial nerves II-XII grossly intact. Motor is 5/5 in bilateral upper and lower extremities proximal to distal. No sensory deficits. HEENT: Face is symmetric. Pupils are equal and reactive. Extraocular movements are intact. NECK: Supple. No JVD. No thyromegaly. No submental, submandibular, pre-/postau ricular, occipital or supraclavicular lymphadenopathy. CHEST: Normal chest expansion. No Telemetry. LUNGS: Absence of any rales, rhonchi or any wheezing. CARDIOVASCULAR: Regular. S1 and S2 normal. No appreciable rubs, murmurs or gallops. ABDOMEN: Soft, nontender, and nondistended. There is no rebound, voluntary guarding, or rigidity. : Deferred. No Nelson. EXTREMITIES: Non-edematous and not cyanotic. No clubbing. Good capillary refill. SKIN: No skin breakdown. Vital Signs (last 8hr) Date Time Temp Pulse Resp B/P (MAP) Pulse Ox O2 Delivery O2 Flow Rate FiO2 07/21/24 11:28 73 20 07/21/24 07:27 Nasal Cannula* 2 28 LABS: Laboratory: Test 07/21/24 11:26 07/21/24 04:59 Range/Units Whole Blood Glucose 110 70-110 MG/DL White Blood Count 9.4 4.8-10.8 K/uL Red Blood Count 3.59 L 4.00-5.50 MIL/uL Hemoglobin 9.2 L 12.0-16.0 g/dL Hematocrit 29.5 L 36-48 % Mean Corpuscular Volume 82.2 79-99 fL Mean Corpuscular Hemoglobin 25.6 L 27.0-33.0 pg Mean Corpuscular Hemoglobin Concent 31.2 L 32.0-36.0 g/dL Red Cell Distribution Width 18.3 H 11.0-15.5 % Platelet Count 245 130-400 K/uL Mean Platelet Volume 10.6 H 7.5-10.5 fL Nucleated Red Blood Cells 0.0 0.0-0.19 % Prothrombin Time 11.6 9.6-11.6 SEC Prothromb Time International Ratio 1.04 0.85-1.15 Activated Partial Thromboplast Time 27.7 26.3-35.5 SEC Sodium Level 142 136-145 mmol/L Potassium Level 4.1 3.5-5.1 mmol/L Chloride Level 107 101-111 mmol/L Carbon Dioxide Level 31 21-32 mmol/L Blood Urea Nitrogen 26 H 7-18 mg/dL Creatinine 0.7 0.5-1.0 mg/dL Glomerular Filtration Rate Calc 83 >90 mL/min Random Glucose 131 H 70-105 mg/dL Total Calcium 8.3 L 8.5-10.1 mg/dL Magnesium Level 2.20 1.80-2.40 mg/dL Total Bilirubin 0.3 0.2-1.0 mg/dL Aspartate Amino Transf (AST/SGOT) 22 10-37 U/L Alanine Aminotransferase (ALT/SGPT) 20 12-78 U/L Alkaline Phosphatase 74 50-136 U/L Total Protein 6.2 6.0-8.3 g/dL Albumin 2.2 L 3.5-5.0 g/dL Current Medications Medications (Trade) Dose Ordered Sig/Parker Route PRN Reason Start Time Stop Time Status Last Admin Dose Admin Acetaminophen 100 ml @ 200 mls/hr Q12H PRN IVPB PAIN/ FEVER, 1-5 07/14/24 13:00 08/13/24 12:59 Acetaminophen (acetaMINOPHEN) 1,000 mg Q12H PRN IVPB PAIN/ FEVER, 1-5 07/14/24 12:00 07/14/24 12:47 DC Albuterol (DUOneb) 1 udvial [id number] 07/14/24 12:00 07/14/24 21:49 DC 07/14/24 19:15 1 UDVIAL Budesonide (Pulmicort 0.5 Mg/2ml) 0.5 mg BID 07/14/24 21:00 08/13/24 11:59 07/21/24 06:44 0.5 MG Budesonide (Pulmicort 0.5 Mg/2ml) 0.5 mg Q12H IH 07/14/24 12:00 07/14/24 12:58 DC Cefepime HCl (MAXipime 2 gm vial) 2 gm Q12H IVPB 07/14/24 12:00 07/24/24 11:59 07/21/24 14:15 2 GM Doxycycline Hyclate 250 ml @ 125 mls/hr Q12H IV 07/14/24 13:00 07/24/24 12:59 07/21/24 14:15 125 MLS/HR Enoxaparin Sodium (Lovenox) 30 mg DAILY SQ 07/15/24 09:00 08/14/24 08:59 07/21/24 08:27 30 MG Furosemide (LASix 20MG VIAL) 20 mg Q12H IV 07/14/24 12:30 07/18/24 01:00 DC 07/18/24 00:14 20 MG Guaifenesin/ Dextromethorphan (RobiTUSSin DM 200/20MG 10ML) 10 ml Q6H PRN PO COUGH 07/14/24 17:30 08/13/24 17:29 Insulin Human Regular (humuLIN R 100 UNIT/ML 3ML) INSULIN SLIDING SCAL... ACHS SQ 07/14/24 16:30 08/13/24 16:29 Ipratropium Lucama (AtrovENT UD) 0.5 MG [id number] IH 07/15/24 00:00 08/14/24 00:00 07/21/24 11:27 0.5 MG Lactated Ringer's 2,229 ml @ 371.5 mls/ hr Q6H IV 07/17/24 06:00 07/17/24 11:59 DC 07/17/24 05:42 371.5 MLS/HR Lisinopril (Prinivil 10mg) 10 mg DAILY PO 07/15/24 09:00 07/16/24 12:14 DC 07/16/24 08:37 10 MG Lisinopril (Prinivil 40mg) 40 mg DAILY PO 07/17/24 09:00 08/16/24 08:59 07/21/24 08:26 40 MG Magnesium Sulfate 50 ml @ 0 mls/hr PROTOCOL IV 07/14/24 12:00 08/13/24 11:59 Methylprednisolone Sodium Succinate (Solu-medROL 40MG) 20 mg Q12H IVP 07/16/24 12:30 07/19/24 17:27 DC 07/19/24 11:38 20 MG Methylprednisolone Sodium Succinate (Solu-medROL 40MG) 40 mg Q8H IVP 07/14/24 23:00 07/16/24 12:08 DC 07/16/24 08:33 40 MG Methylprednisolone Sodium Succinate (Solu-medROL 40MG) 60 mg Q8H IVP 07/14/24 15:00 07/14/24 21:46 DC 07/14/24 16:09 60 MG Montelukast Sodium (SinguLAIR) 10 mg DAILY PO 07/15/24 09:00 08/14/24 08:59 07/21/24 08:26 10 MG Nifedipine (adALAT 30MG) 30 mg BID PO 07/18/24 13:00 07/19/24 07:11 DC 07/18/24 21:19 30 MG Nifedipine (adALAT 30MG) 60 mg BID PO 07/19/24 09:00 08/18/24 08:59 07/21/24 08:26 60 MG Nystatin (NystOP 15 GM POWDER) apply to abdominal fold ... BID TP 07/16/24 21:00 08/15/24 20:59 07/21/24 08:31 1 APPL Ondansetron HCl (zoFRAN 4MG INJ) 4 mg Q6H PRN IVP NAUSEA/VOMITING 07/14/24 12:00 08/13/24 11:59 Pantoprazole Sodium (PROTonix 40MG INJ) 40 mg Q24H IVP 07/14/24 12:00 08/13/24 11:59 07/21/24 14:15 40 MG Potassium Chloride 100 ml @ 100 mls/hr AD PRN IV POTASSIUM PROTOCOL 07/14/24 12:00 08/13/24 11:59 Potassium Chloride (K-Dur/Klor-Con 20meq) 20 meq AD PRN PO POTASSIUM PROTOCOL 07/14/24 12:00 08/13/24 11:59 Potassium Chloride (KCl 10% Elixir 20meq/15ml) 20 meq AD PRN PO POTASSIUM PROTOCOL 07/14/24 12:00 08/13/24 11:59 Prednisone (deltaSONE/ oraSONE 20MG TAB) 20 mg BID PO 07/19/24 21:00 07/26/24 20:59 07/21/24 08:26 20 MG Thiamine HCl (Vitamin B-1) 100 mg DAILY IVP 07/15/24 09:00 07/18/24 09:00 DC 07/18/24 09:44 100 MG Vancomycin HCl 250 ml @ 125 mls/hr Q24H IV 07/15/24 15:00 07/15/24 10:52 DC Vancomycin HCl (Vancomycin Protocol) 1 each AD IV 07/14/24 12:00 07/15/24 10:54 DC Wound Care/ Dressing Products (Venelex Ointment) 1 APPL BID TP 07/16/24 21:00 08/15/24 20:59 07/21/24 08:31 1 GM DIAGNOSTICS / RADIOLOGY: [ ] ASSESSMENT: Severe acute hypoxemic respiratory failure, POA Acute hypercapnic respiratory failure with respiratory acidosis, POA Acute COPD exacerbation, POA Suspected developing community-acquired pneumonia, POA Rule out diastolic heart failure exacerbation, POA Type 2 NSTEMI, secondary to underlying respiratory failure, POA Hypertension, POA Hyperlipidemia, POA Moderate protein calorie malnutrition, POA Frailty/debility/deconditioning, POA Underlying history of anemia, POA PLAN: Remains admitted to the medical floor Continue prednisone 20 mg p.o. b.i.d. Continue nifedipine 60 mg p.o. b.i.d. Continue lisinopril 40 mg daily Continue broad-spectrum antibiotics with cefepime/doxycycline Sputum growing Pseudomonas Echo showing normal EF 50-55%, stage I diastolic dysfunction Replace electrolytes IV per protocol A.m. labs Disposition: Pending placement to SNF GIO RAYMOND MD Jul 21, 2024 15:02
--- NOTE | 2024-07-21 19:15 | PN ---
[facility] PROGRESS NOTE Date Patient Seen: Jul 21, 2024 Time of Visit: 19:13 Supervising Physician: NANETTE MASSEY MD Primary Care Physician: Mary Aguilera MD Outpatient Specialists: Inpatient Consults: DR ERNESTINE MORA, DR CHAPITO LAUGHLIN PROBLEM LIST: Acute hypercarbic hypoxic respiratory failure on admission Acute COPD exacerbation Community acquired pneumonia Acute on chronic diastolic heart failure Moderate pulmonary hypertension 46 mm/Hg Acute non ST elevation myocardial infarction type 2 secondary to metabolic demand on admission Underlying hyperlipidemia Anemia of chronic disease INTERVAL HISTORY: 07/21/2024 The patient does not like to use the BiPAP at night She remains on 3 L oxygen Continues with a dry hacking cough No phlegm No hemoptysis Good appetite No fevers REVIEW OF SYSTEMS: 12 point ROS reviewed with patient. Pertinent positives mentioned above. Otherwise negative. PHYSICAL EXAM: GENERAL: alert, weak, awake oriented x 2 HEENT: EOMI, Sclera non icteric, moist mucosa NECK: Supple, no JVD, trachea midline LUNGS: Her lungs show decreased air entry bilaterally at the bases however, no wheezing or rhonchi noted. HEART: Regular rate and rhythm. Normal S1 and S2, without murmurs ABD: Abdomen soft, nontender. Bowel sounds present EXT: No clubbing cyanosis or edema NEURO: Alert and oriented to person, follows commands Vital Signs (last 8hr) Date Time Temp Pulse Resp B/P (MAP) Pulse Ox O2 Delivery O2 Flow Rate FiO2 07/21/24 18:37 72 18 N/Cannula Low lpm 2.0 28 07/21/24 18:36 72 20 07/21/24 16:00 97.5 73 18 142/41 97 Nasal Cannula 2.0 07/21/24 12:00 97.7 74 18 159/47 96 Nasal Cannula 2.0 07/21/24 11:28 73 20 LABS: Hematology Labs: Test 07/21/24 04:59 Range/Units White Blood Count 9.4 4.8-10.8 K/uL Red Blood Count 3.59 L 4.00-5.50 MIL/uL Hemoglobin 9.2 L 12.0-16.0 g/dL Hematocrit 29.5 L 36-48 % Mean Corpuscular Volume 82.2 79-99 fL Mean Corpuscular Hemoglobin 25.6 L 27.0-33.0 pg Mean Corpuscular Hemoglobin Concent 31.2 L 32.0-36.0 g/dL Red Cell Distribution Width 18.3 H 11.0-15.5 % Platelet Count 245 130-400 K/uL Mean Platelet Volume 10.6 H 7.5-10.5 fL Nucleated Red Blood Cells 0.0 0.0-0.19 % Chemistry Labs: Test 07/21/24 15:48 07/21/24 04:59 Range/Units Whole Blood Glucose 137 H 70-110 MG/DL Sodium Level 142 136-145 mmol/L Potassium Level 4.1 3.5-5.1 mmol/L Chloride Level 107 101-111 mmol/L Carbon Dioxide Level 31 21-32 mmol/L Blood Urea Nitrogen 26 H 7-18 mg/dL Creatinine 0.7 0.5-1.0 mg/dL Glomerular Filtration Rate Calc 83 >90 mL/min Random Glucose 131 H 70-105 mg/dL Total Calcium 8.3 L 8.5-10.1 mg/dL Magnesium Level 2.20 1.80-2.40 mg/dL Total Bilirubin 0.3 0.2-1.0 mg/dL Aspartate Amino Transf (AST/SGOT) 22 10-37 U/L Alanine Aminotransferase (ALT/SGPT) 20 12-78 U/L Alkaline Phosphatase 74 50-136 U/L Total Protein 6.2 6.0-8.3 g/dL Albumin 2.2 L 3.5-5.0 g/dL Coagulation Labs: Test 07/21/24 04:59 Range/Units Prothrombin Time 11.6 9.6-11.6 SEC Prothromb Time International Ratio 1.04 0.85-1.15 Activated Partial Thromboplast Time 27.7 26.3-35.5 SEC DIAGNOSTICS / RADIOLOGY RESULTS: [No new imaging scans to review today ] PLAN HEMODYNAMICALLY STABLE FROM THE PULMONARY STANDPOINT PATIENT MAY BE DISCHARGED FROM HOSPITAL DISPOSITION PER PRIMARY CONTINUE SUPPLEMENTAL OXYGEN NEURO: Minimize central acting medications as possible. Maintain fall precautions, adequate lighting during the day PULMONARY: Supplemental 02 as needed. Maintain aspiration precautions at all times CARDIOVASCULAR: Follow hemodynamics. Vital signs per facility protocol GI & NUTRITION: Continue with nutritional support. Continue stool softeners and laxatives as needed. KIDNEYS & ELECTROLYTES: Strict monitoring of intake, output and overall fluid balance. Avoid nephrotoxic medications to the extent possible. Medications to be dosed according to renal function. Monitor electrolytes and replace as needed ENDOCRINE: Maintain blood glucose between 100-180 at all times. Hypoglycemia protocol in place INFECTIOUS DISEASE: Trend temperature, WBC and procalcitonin level Follow cultures, deescalate antibiotics as soon as possible. Panculture if new onset fever ONCOLOGY/HEMATOLOGY/COAGULATION: Monitor for s/s of bleeding Monitor hemoglobin, coagulation studies as needed SKIN: Pressure ulcer prevention per facility protocol Specialty mattress ORTHO/REHAB: Continue PT/OT Prophylaxis: Continue GI and DVT prophylaxis Code Status: Full Resuscitation Disposition: as per primary, plan for SNF ATTESTATION BY PHYSICIAN Clinical note was scribed by Dustin Molina, medical claims representative. I can attest to the accuracy and veracity of the note NANETTE MASSEY MD I personally scribed for NANETTE MASSEY MD ([email or web address]) on 07/21/24 at 19:15. Electronically submitted by Dustin Molina ([email or web address]). NANETTE MASSEY MD Jul 21, 2024 19:15
[2024-07-21] MEDS: hydrALAZine 20MG/ML VIAL IV PRN (23:40)
[2024-07-22] VITALS (12 sets, daily range): BP systolic 132–163; BP diastolic 34–78; PULSE 62–79; RESP 16–20; TEMP 97.3–97.9; O2SAT 98–100
--- NOTE | 2024-07-22 03:22 | NUR ---
nursing pm note patient alert and oriented times 3. she is hard of hearing. plan of care discussed with her and she verbalized understanding. I called fish house worker, nichole townsend, and faxed her the order for a picc line. She is aware. The patient's IV became infiltrated and Shay and I tried to place a new IV catheter. She has a new IV 22 gauge on her left forearm. Patient was bathed. She has a purewick because she is very weak to walk. She has been urinating throughout the night light yellow urine. We offer her warm packs to her right arm and she refuses. door open, bed alarm on, 2 side rails up. will continue to monitor patient.
[2024-07-22 08:09] LABS: INR 1.02 (0.85-1.15); PROTHROMBIN TIME 11.4 SEC (9.6-11.6)
[2024-07-22 08:11] LABS: PARTIAL THROMBOPLASTIN TIME 27.7 SEC (26.3-35.5)
--- NOTE | 2024-07-22 13:06 | PN ---
[facility] PROGRESS NOTE Date of Service: Jul 22, 2024 Time of Service: 13:05 SUBJECTIVE: 07/15 patient seen at bedside, no acute events overnight. She is still remains on BiPAP, saturating at 98%. Hemoglobin decreased from 9.1 down to 8.2, creatinine increased from 0.9 up to 1.1, troponins are downtrending, TSH mildly decreased at 0.23, we will order a free T4, remainder of her labs are relatively unremarkable. Further care per pulmonology recommendations. 07/16 patient seen at bedside, no acute events overnight. She is still requiring BiPAP therapy, still with prominent wheeze on auscultation. She has been mildly hypertensive, we will increase lisinopril to 40 mg daily. Cultures are no growth to date, continue with nebulizer and systemic steroids. Further recommendations per pulmonology 07/17 patient seen at bedside, no acute events overnight. Yesterday lactic acid began trending up patient was given a bolus with subsequent improvement. Potassium mildly elevated at 5.8 we will continue to monitor. Sputum growing Pseudomonas, she has been hypertensive, lisinopril was increased to 40 mg daily, WBC improved from 20.3 down to 11.5, hemoglobin improved from 8.8 up to 9.9, remainder of her labs are relatively unremarkable. We will follow up with pulmonology recommendations. Patient's IV infiltrated, we will have a midline placed 07/19 patient seen at bedside, no acute events overnight. Lactic acid has improved back to normal today. She remains on BiPAP overnight, was restarted on nasal cannula today and was saturating 98%. Nursing instructed to keep O2 sats around 92%. Patient has not ambulated with physical therapy, we will refer her to jail for aggressive rehab. Blood pressure was mildly elevated we will start nifedipine 30 mg twice daily. We will follow up with further pulmonology recommendations. 07/20 patient seen at bedside, no acute events overnight. Patient continues requiring low amount of O2 proximally 2 L nasal cannula. When off supplemental oxygen she tends to desaturate. We will try to wean and we will also perform a 6 minute walk today. Pending SNF placement 07/20 patient is seen bedside, no acute events overnight, remains on 2 L via nasal cannula, saturating 98%. Pending SNF placement. Family at bedside, updated. 07/21 patient is seen and examined during my rounding, no acute events overnight, hemodynamically stable, BP 151/80, afebrile, saturating 98% 2 L nasal cannula. Hemoglobin stable at 9.2, WBC within normal range at 9.4. Rest of blood work unremarkable. Pending insurance approval for the patient to be discharged to jail facility. 07/22/24 patient is seen and examined, no acute events overnight, watching TV at the time of my visit, BP remains mildly elevated, 148/77, saturating 97% on 3 L via nasal cannula. Hemoglobin stable at 9.2. Peer to peer was done yesterday with the insurance MD, per our discussion D need a more updated note from physical therapy (current one in the chart is from 07/17/2024) in order for them to approve admission to jail facility. PT was reconsulted yesterday, case discussed with case management. REVIEW OF SYSTEMS 12 point review of systems negative unless noted in HPI PHYSICAL EXAM GENERAL APPEARANCE: The patient is awake, alert, and oriented, in no acute cardiopulmonary distress. NEUROLOGICAL: Cranial nerves II-XII grossly intact. Motor is 5/5 in bilateral upper and lower extremities proximal to distal. No sensory deficits. HEENT: Face is symmetric. Pupils are equal and reactive. Extraocular movements are intact. NECK: Supple. No JVD. No thyromegaly. No submental, submandibular, pre-/posta uricular, occipital or supraclavicular lymphadenopathy. CHEST: Normal chest expansion. No Telemetry. LUNGS: Absence of any rales, rhonchi or any wheezing. CARDIOVASCULAR: Regular. S1 and S2 normal. No appreciable rubs, murmurs or gallops. ABDOMEN: Soft, nontender, and nondistended. There is no rebound, voluntary guarding, or rigidity. : Deferred. No Nelson. EXTREMITIES: Non-edematous and not cyanotic. No clubbing. Good capillary refill. SKIN: No skin breakdown. Vital Signs (last 8hr) Date Time Temp Pulse Resp B/P (MAP) Pulse Ox O2 Delivery O2 Flow Rate FiO2 07/22/24 11:26 77 20 07/22/24 11:25 77 18 N/Cannula Low lpm 2.0 28 07/22/24 08:00 97.7 79 18 148/77 97 Nasal Cannula 3.0 07/22/24 07:26 Nasal Cannula* 2 28 07/22/24 06:46 62 18 N/Cannula Low lpm 2.0 28 07/22/24 06:46 62 20 LABS: Laboratory: Test 07/22/24 11:50 07/22/24 07:45 07/21/24 04:59 Range/Units Whole Blood Glucose 82 70-110 MG/DL Prothrombin Time 11.4 9.6-11.6 SEC Prothromb Time International Ratio 1.02 0.85-1.15 Activated Partial Thromboplast Time 27.7 26.3-35.5 SEC White Blood Count 9.4 4.8-10.8 K/uL Red Blood Count 3.59 L 4.00-5.50 MIL/uL Hemoglobin 9.2 L 12.0-16.0 g/dL Hematocrit 29.5 L 36-48 % Mean Corpuscular Volume 82.2 79-99 fL Mean Corpuscular Hemoglobin 25.6 L 27.0-33.0 pg Mean Corpuscular Hemoglobin Concent 31.2 L 32.0-36.0 g/dL Red Cell Distribution Width 18.3 H 11.0-15.5 % Platelet Count 245 130-400 K/uL Mean Platelet Volume 10.6 H 7.5-10.5 fL Nucleated Red Blood Cells 0.0 0.0-0.19 % Sodium Level 142 136-145 mmol/L Potassium Level 4.1 3.5-5.1 mmol/L Chloride Level 107 101-111 mmol/L Carbon Dioxide Level 31 21-32 mmol/L Blood Urea Nitrogen 26 H 7-18 mg/dL Creatinine 0.7 0.5-1.0 mg/dL Glomerular Filtration Rate Calc 83 >90 mL/min Random Glucose 131 H 70-105 mg/dL Total Calcium 8.3 L 8.5-10.1 mg/dL Magnesium Level 2.20 1.80-2.40 mg/dL Total Bilirubin 0.3 0.2-1.0 mg/dL Aspartate Amino Transf (AST/SGOT) 22 10-37 U/L Alanine Aminotransferase (ALT/SGPT) 20 12-78 U/L Alkaline Phosphatase 74 50-136 U/L Total Protein 6.2 6.0-8.3 g/dL Albumin 2.2 L 3.5-5.0 g/dL Current Medications Medications (Trade) Dose Ordered Sig/Parker Route PRN Reason Start Time Stop Time Status Last Admin Dose Admin Acetaminophen 100 ml @ 200 mls/hr Q12H PRN IVPB PAIN/ FEVER, 1-5 07/14/24 13:00 08/13/24 12:59 Acetaminophen (acetaMINOPHEN) 1,000 mg Q12H PRN IVPB PAIN/ FEVER, 1-5 07/14/24 12:00 07/14/24 12:47 DC Albuterol (DUOneb) 1 udvial [id number] 07/14/24 12:00 07/14/24 21:49 DC 07/14/24 19:15 1 UDVIAL Budesonide (Pulmicort 0.5 Mg/2ml) 0.5 mg BID IH 07/14/24 21:00 08/13/24 11:59 07/22/24 06:45 0.5 MG Budesonide (Pulmicort 0.5 Mg/2ml) 0.5 mg Q12H IH 07/14/24 12:00 07/14/24 12:58 DC Cefepime HCl (MAXipime 2 gm vial) 2 gm Q12H IVPB 07/14/24 12:00 07/24/24 11:59 07/21/24 23:40 2 GM Doxycycline Hyclate 250 ml @ 125 mls/hr Q12H IV 07/14/24 13:00 07/24/24 12:59 07/22/24 00:40 125 MLS/HR Enoxaparin Sodium (Lovenox) 30 mg DAILY SQ 07/15/24 09:00 08/14/24 08:59 07/22/24 10:12 30 MG Furosemide (LASix 20MG VIAL) 20 mg Q12H IV 07/14/24 12:30 07/18/24 01:00 DC 07/18/24 00:14 20 MG Guaifenesin/ Dextromethorphan (RobiTUSSin DM 200/20MG 10ML) 10 ml Q6H PRN PO COUGH 07/14/24 17:30 08/13/24 17:29 Hydralazine HCl (APRESOLine 20MG INJ) 10 mg Q4H PRN IV ADMINISTER FOR SBP > 160 07/21/24 23:30 08/20/24 23:29 07/21/24 23:40 10 MG Insulin Human Regular (humuLIN R 100 UNIT/ML 3ML) INSULIN SLIDING SCAL... ACHS SQ 07/14/24 16:30 08/13/24 16:29 Ipratropium [place] (AtrovENT UD) 0.5 MG [id number] IH 07/15/24 00:00 08/14/24 00:00 07/22/24 11:24 0.5 MG Lactated Ringer's 2,229 ml @ 371.5 mls/ hr Q6H IV 07/17/24 06:00 07/17/24 11:59 DC 07/17/24 05:42 371.5 MLS/HR Lisinopril (Prinivil 10mg) 10 mg DAILY PO 07/15/24 09:00 07/16/24 12:14 DC 07/16/24 08:37 10 MG Lisinopril (Prinivil 40mg) 40 mg DAILY PO 07/17/24 09:00 08/16/24 08:59 07/22/24 10:04 40 MG Magnesium Sulfate 50 ml @ 0 mls/hr PROTOCOL IV 07/14/24 12:00 08/13/24 11:59 Methylprednisolone Sodium Succinate (Solu-medROL 40MG) 20 mg Q12H IVP 07/16/24 12:30 07/19/24 17:27 DC 07/19/24 11:38 20 MG Methylprednisolone Sodium Succinate (Solu-medROL 40MG) 40 mg Q8H IVP 07/14/24 23:00 07/16/24 12:08 DC 07/16/24 08:33 40 MG Methylprednisolone Sodium Succinate (Solu-medROL 40MG) 60 mg Q8H IVP 07/14/24 15:00 07/14/24 21:46 DC 07/14/24 16:09 60 MG Montelukast Sodium (SinguLAIR) 10 mg DAILY PO 07/15/24 09:00 08/14/24 08:59 07/22/24 10:04 10 MG Nifedipine (adALAT 30MG) 30 mg BID PO 07/18/24 13:00 07/19/24 07:11 DC 07/18/24 21:19 30 MG Nifedipine (adALAT 30MG) 60 mg BID PO 07/19/24 09:00 08/18/24 08:59 07/22/24 10:03 60 MG Nystatin (NystOP 15 GM POWDER) apply to abdominal fold ... BID TP 07/16/24 21:00 08/15/24 20:59 07/21/24 20:50 1 APPL Ondansetron HCl (zoFRAN 4MG INJ) 4 mg Q6H PRN IVP NAUSEA/VOMITING 07/14/24 12:00 08/13/24 11:59 Pantoprazole Sodium (PROTonix 40MG INJ) 40 mg Q24H IVP 07/14/24 12:00 08/13/24 11:59 07/21/24 14:15 40 MG Potassium Chloride 100 ml @ 100 mls/hr AD PRN IV POTASSIUM PROTOCOL 07/14/24 12:00 08/13/24 11:59 Potassium Chloride (K-Dur/Klor-Con 20meq) 20 meq AD PRN PO POTASSIUM PROTOCOL 07/14/24 12:00 08/13/24 11:59 Potassium Chloride (KCl 10% Elixir 20meq/15ml) 20 meq AD PRN PO POTASSIUM PROTOCOL 07/14/24 12:00 08/13/24 11:59 Prednisone (deltaSONE/ oraSONE 20MG TAB) 20 mg BID PO 07/19/24 21:00 07/26/24 20:59 07/22/24 10:05 20 MG Thiamine HCl (Vitamin B-1) 100 mg DAILY IVP 07/15/24 09:00 07/18/24 09:00 DC 07/18/24 09:44 100 MG Vancomycin HCl 250 ml @ 125 mls/hr Q24H IV 07/15/24 15:00 07/15/24 10:52 DC Vancomycin HCl (Vancomycin Protocol) 1 each AD IV 07/14/24 12:00 07/15/24 10:54 DC Wound Care/ Dressing Products (Venelex Ointment) 1 APPL BID TP 07/16/24 21:00 08/15/24 20:59 07/21/24 20:50 1 GM DIAGNOSTICS / RADIOLOGY: [ ] ASSESSMENT: Severe acute hypoxemic respiratory failure, POA Acute hypercapnic respiratory failure with respiratory acidosis, POA Acute COPD exacerbation, POA Suspected developing community-acquired pneumonia, POA Rule out diastolic heart failure exacerbation, POA Type 2 NSTEMI, secondary to underlying respiratory failure, POA Hypertension, POA Hyperlipidemia, POA Moderate protein calorie malnutrition, POA Frailty/debility/deconditioning, POA Underlying history of anemia, POA PLAN: Remains admitted to the medical floor Continue prednisone 20 mg p.o. b.i.d. Continue nifedipine 60 mg p.o. b.i.d. Continue lisinopril 40 mg daily Continue broad-spectrum antibiotics with cefepime/doxycycline Sputum growing Pseudomonas Echo showing normal EF 50-55%, stage I diastolic dysfunction Replace electrolytes IV per protocol A.m. labs Disposition: Pending insurance approval for the patient to be discharged to jail facility. GIO RAYMOND MD Jul 22, 2024 13:06
--- NOTE | 2024-07-22 16:29 | PN ---
[facility] PROGRESS NOTE Date Patient Seen: Jul 22, 2024 Time of Visit: 16:27 Supervising Physician: Dr. Mireya Chávez Primary Care Physician: Mary Aguilera MD Outpatient Specialists: Inpatient Consults: DR ERNESTINE MORA, DR CHAPITO LAUGHLIN PROBLEM LIST: Acute hypercarbic hypoxic respiratory failure on admission Acute COPD exacerbation Community acquired pneumonia Acute on chronic diastolic heart failure Moderate pulmonary hypertension 46 mm/Hg Acute non ST elevation myocardial infarction type 2 secondary to metabolic demand on admission Underlying hyperlipidemia Anemia of chronic disease INTERVAL HISTORY: Patient is seen at bedside today currently on 2 L nasal cannula. She continues with a dry cough, no new complaints at this time. White count today remains within normal limits at 9.4, hemoglobin is 9.2. Nursing staff is attempting to wean the patient. We will continue to see the patient while she is on the med floor however she has been cleared by pulmonology for discharge with either 6 minute walker once weaned from oxygen, disposition per primary. REVIEW OF SYSTEMS: 12 point ROS reviewed with patient. Pertinent positives mentioned above. O therwise negative. PHYSICAL EXAM: GENERAL: alert, weak, awake oriented x 2 HEENT: EOMI, Sclera non icteric, moist mucosa NECK: Supple, no JVD, trachea midline LUNGS: Her lungs show decreased air entry bilaterally at the bases however, no wheezing or rhonchi noted. HEART: Regular rate and rhythm. Normal S1 and S2, without murmurs ABD: Abdomen soft, nontender. Bowel sounds present EXT: No clubbing cyanosis or edema NEURO: Alert and oriented to person, follows commands Vital Signs (last 8hr) Date Time Temp Pulse Resp B/P (MAP) Pulse Ox O2 Delivery O2 Flow Rate FiO2 07/22/24 12:00 97.3 76 16 140/34 100 Room Air 07/22/24 11:26 77 20 07/22/24 11:25 77 18 N/Cannula Low lpm 2.0 28 LABS: Hematology Labs: Test 07/21/24 04:59 Range/Units White Blood Count 9.4 4.8-10.8 K/uL Red Blood Count 3.59 L 4.00-5.50 MIL/uL Hemoglobin 9.2 L 12.0-16.0 g/dL Hematocrit 29.5 L 36-48 % Mean Corpuscular Volume 82.2 79-99 fL Mean Corpuscular Hemoglobin 25.6 L 27.0-33.0 pg Mean Corpuscular Hemoglobin Concent 31.2 L 32.0-36.0 g/dL Red Cell Distribution Width 18.3 H 11.0-15.5 % Platelet Count 245 130-400 K/uL Mean Platelet Volume 10.6 H 7.5-10.5 fL Nucleated Red Blood Cells 0.0 0.0-0.19 % Chemistry Labs: Test 07/22/24 15:42 07/21/24 04:59 Range/Units Whole Blood Glucose 100 70-110 MG/DL Sodium Level 142 136-145 mmol/L Potassium Level 4.1 3.5-5.1 mmol/L Chloride Level 107 101-111 mmol/L Carbon Dioxide Level 31 21-32 mmol/L Blood Urea Nitrogen 26 H 7-18 mg/dL Creatinine 0.7 0.5-1.0 mg/dL Glomerular Filtration Rate Calc 83 >90 mL/min Random Glucose 131 H 70-105 mg/dL Total Calcium 8.3 L 8.5-10.1 mg/dL Magnesium Level 2.20 1.80-2.40 mg/dL Total Bilirubin 0.3 0.2-1.0 mg/dL Aspartate Amino Transf (AST/SGOT) 22 10-37 U/L Alanine Aminotransferase (ALT/SGPT) 20 12-78 U/L Alkaline Phosphatase 74 50-136 U/L Total Protein 6.2 6.0-8.3 g/dL Albumin 2.2 L 3.5-5.0 g/dL Coagulation Labs: Test 07/22/24 07:45 Range/Units Prothrombin Time 11.4 9.6-11.6 SEC Prothromb Time International Ratio 1.02 0.85-1.15 Activated Partial Thromboplast Time 27.7 26.3-35.5 SEC DIAGNOSTICS / RADIOLOGY RESULTS: [ ] PLAN HEMODYNAMICALLY STABLE FROM THE PULMONARY STANDPOINT PATIENT MAY BE DISCHARGED FROM HOSPITAL DISPOSITION PER PRIMARY CONTINUE SUPPLEMENTAL OXYGEN NEURO: Minimize central acting medications as possible. Maintain fall precautions, adequate lighting during the day PULMONARY: Supplemental 02 as needed. Maintain aspiration precautions at all times CARDIOVASCULAR: Follow hemodynamics. Vital signs per facility protocol GI & NUTRITION: Continue with nutritional support. Continue stool softeners and laxatives as needed. KIDNEYS & ELECTROLYTES: Strict monitoring of intake, output and overall fluid balance. Avoid nephrotoxic medications to the extent possible. Medications to be dosed according to renal function. Monitor electrolytes and replace as needed ENDOCRINE: Maintain blood glucose between 100-180 at all times. Hypoglycemia protocol in place INFECTIOUS DISEASE: Trend temperature, WBC and procalcitonin level Follow cultures, deescalate antibiotics as soon as possible. Panculture if new onset fever ONCOLOGY/HEMATOLOGY/COAGULATION: Monitor for s/s of bleeding Monitor hemoglobin, coagulation studies as needed SKIN: Pressure ulcer prevention per facility protocol Specialty mattress ORTHO/REHAB: Continue PT/OT Prophylaxis: Continue GI and DVT prophylaxis Code Status: Full Resuscitation Disposition: as per primary, plan for SNF ATTESTATION BY PHYSICIAN Clinical note was scribed by Dustin Molina medical office asst. I can attest to the accuracy and veracity of the note NANETTE MASSEY MD, JUSTIN L PA Jul 22, 2024 16:29
[2024-07-22] MEDS: hydrALAZine 25MG TABLET PO SCH (17:18)
[2024-07-22] MEDS: PANTOPrazole 40 MG/VIAL IVP SCH (20:28)
[2024-07-22] MEDS: ceFEPime HCL 2 GM VIAL IVPB SCH (20:28)
[2024-07-22] MEDS ORDERED: DOXYCYCLINE 100MG+NS 250ML 250 ML IV SCH (21:00)
[2024-07-23] VITALS (7 sets, daily range): BP systolic 140–165; BP diastolic 54–76; PULSE 59–83; RESP 17–22; TEMP 97.5–98.3; O2SAT 94–98
[2024-07-23] MEDS: DOXYCYCLINE 100MG+NS 250ML 250 ML IV SCH (00:01)
[2024-07-23 05:48] LABS: HEMATOCRIT 29.3 % (36-48); MEAN CORPUSCULAR HEMOGLOBIN 25.5 pg (27.0-33.0); MEAN CORPUSCULAR HGB CONC 30.7 g/dL (32.0-36.0); PLATELET COUNT (AUTO) 252 K/uL (130-400); RED BLOOD CELL COUNT(AUTO) 3.53 MIL/uL (4.00-5.50); RED CELL DISTRIBUTION WIDTH 18.7 % (11.0-15.5); WHITE BLOOD COUNT (AUTO) 9.7 K/uL (4.8-10.8)
[2024-07-23 06:06] LABS: ALBUMIN 2.3 g/dL (3.5-5.0); BILIRUBIN,TOTAL 0.3 mg/dL (0.2-1.0); CREATININE 0.7 mg/dL (0.5-1.0); MAGNESIUM 1.9 mg/dL (1.80-2.40); POTASSIUM 3.9 mmol/L (3.5-5.1); TOTAL PROTEIN, SERUM 5.8 g/dL (6.0-8.3)
--- NOTE | 2024-07-23 07:29 | NUR ---
Call placed to [facility] @ this time, regarding pt. critical lab value, staff member stated would page on-call physician; awaiting call.
[2024-07-23 09:16] LABS: INR 1.04 (0.85-1.15); PROTHROMBIN TIME 11.6 SEC (9.6-11.6)
[2024-07-23] MEDS: MAGNESIUM 2GM PREMIX 50ML 50 ML IV SCH (09:40)
--- NOTE | 2024-07-23 10:29 | HMCIMG ---
CHEST 1VW REASON: VERIFY PICC LINE PLACEMENT COMPARISON: 07/19/2024 FINDINGS: Single view of the chest was obtained. Lungs are clear. Heart size is mildly enlarged, unchanged. There is no pulmonary vascular congestion. Mediastinum and bony thorax appear unremarkable. There is left-sided PICC line. Tip is deep in right atrium, 6 cm past the atrial caval junction. IMPRESSION: 1. PICC line tip 6 cm into the right atrium.
--- NOTE | 2024-07-23 13:12 | PN ---
[facility] PROGRESS NOTE Date of Service: Jul 23, 2024 Time of Service: 13:11 SUBJECTIVE: 07/15 patient seen at bedside, no acute events overnight. She is still remains on BiPAP, saturating at 98%. Hemoglobin decreased from 9.1 down to 8.2, creatinine increased from 0.9 up to 1.1, troponins are downtrending, TSH mildly decreased at 0.23, we will order a free T4, remainder of her labs are relatively unremarkable. Further care per pulmonology recommendations. 07/16 patient seen at bedside, no acute events overnight. She is still requiring BiPAP therapy, still with prominent wheeze on auscultation. She has been mildly hypertensive, we will increase lisinopril to 40 mg daily. Cultures are no growth to date, continue with nebulizer and systemic steroids. Further recommendations per pulmonology 07/17 patient seen at bedside, no acute events overnight. Yesterday lactic acid began trending up patient was given a bolus with subsequent improvement. Potassium mildly elevated at 5.8 we will continue to monitor. Sputum growing Pseudomonas, she has been hypertensive, lisinopril was increased to 40 mg daily, WBC improved from 20.3 down to 11.5, hemoglobin improved from 8.8 up to 9.9, remainder of her labs are relatively unremarkable. We will follow up with pulmonology recommendations. Patient's IV infiltrated, we will have a midline placed 07/19 patient seen at bedside, no acute events overnight. Lactic acid has improved back to normal today. She remains on BiPAP overnight, was restarted on nasal cannula today and was saturating 98%. Nursing instructed to keep O2 sats around 92%. Patient has not ambulated with physical therapy, we will refer her to group home for aggressive rehab. Blood pressure was mildly elevated we will start nifedipine 30 mg twice daily. We will follow up with further pulmonology recommendations. 07/20 patient seen at bedside, no acute events overnight. Patient continues requiring low amount of O2 proximally 2 L nasal cannula. When off supplemental oxygen she tends to desaturate. We will try to wean and we will also perform a 6 minute walk today. Pending SNF placement 07/20 patient is seen bedside, no acute events overnight, remains on 2 L via nasal cannula, saturating 98%. Pending SNF placement. Family at bedside, updated. 07/21 patient is seen and examined during my rounding, no acute events overnight, hemodynamically stable, BP 151/80, afebrile, saturating 98% 2 L nasal cannula. Hemoglobin stable at 9.2, WBC within normal range at 9.4. Rest of blood work unremarkable. Pending insurance approval for the patient to be discharged to group home facility. 07/22/24 patient is seen and examined, no acute events overnight, watching TV at the time of my visit, BP remains mildly elevated, 148/77, saturating 97% on 3 L via nasal cannula. Hemoglobin stable at 9.2. Peer to peer was done yesterday with the insurance MD, per our discussion D need a more updated note from physical therapy (current one in the chart is from 07/17/2024) in order for them to approve admission to group home facility. PT was reconsulted yesterday, case discussed with case management. 07/23/24 patient is seen and examined, BP 140/55, afebrile, saturating 95% on 2 L nasal cannula. Peer to peer done yesterday with Dr. Parrish over the phone. Patient approved one week at group home facility, discussed with case management. REVIEW OF SYSTEMS 12 point review of systems negative unless noted in HPI PHYSICAL EXAM GENERAL APPEARANCE: The patient is awake, alert, and oriented, in no acute cardiopulmonary distress. NEUROLOGICAL: Cranial nerves II-XII grossly intact. Motor is 5/5 in bilateral upper and lower extremities proximal to distal. No sensory deficits. HEENT: Face is symmetric. Pupils are equal and reactive. Extraocular movements are intact. NECK: Supple. No JVD. No thyromegaly. No submental, submandibular, pre-/postauricular, occipital or supraclavicular lymphadenopathy. CHEST: Normal chest expansion. No Telemetry. LUNGS: Absence of any rales, rhonchi or any wheezing. CARDIOVASCULAR: Regular. S1 and S2 normal. No appreciable rubs, murmurs or gallops. ABDOMEN: Soft, nontender, and nondistended. There is no rebound, voluntary guarding, or rigidity. : Deferred. No Nelson. EXTREMITIES: Non-edematous and not cyanotic. No clubbing. Good capillary refill. SKIN: No skin breakdown. Vital Signs (last 8hr) Date Time Temp Pulse Resp B/P (MAP) Pulse Ox O2 Delivery O2 Flow Rate FiO2 07/23/24 12:19 60 20 07/23/24 12:00 98.1 79 17 140/55 95 Nasal Cannula 3.0 07/23/24 08:19 94 Nasal Cannula* 2 28 07/23/24 08:00 98.1 83 17 165/54 94 Room Air 07/23/24 06:29 59 20 07/23/24 06:29 59 18 N/Cannula Low lpm 2.0 28 LABS: Laboratory: Test 07/23/24 11:47 07/23/24 05:17 07/22/24 07:45 Range/Units Whole Blood Glucose 143 H 70-110 MG/DL White Blood Count 9.7 4.8-10.8 K/uL Red Blood Count 3.53 L 4.00-5.50 MIL/uL Hemoglobin 9.0 L 12.0-16.0 g/dL Hematocrit 29.3 L 36-48 % Mean Corpuscular Volume 83.0 79-99 fL Mean Corpuscular Hemoglobin 25.5 L 27.0-33.0 pg Mean Corpuscular Hemoglobin Concent 30.7 L 32.0-36.0 g/dL Red Cell Distribution Width 18.7 H 11.0-15.5 % Platelet Count 252 130-400 K/uL Mean Platelet Volume 11.2 H 7.5-10.5 fL Nucleated Red Blood Cells 0.0 0.0-0.19 % Red Blood Cell Morphology See comments Prothrombin Time 11.6 9.6-11.6 SEC Prothromb Time International Ratio 1.04 0.85-1.15 D-Dimer Quantitative (PE/DVT) 541 *H 0-500 ng/mL Sodium Level 144 136-145 mmol/L Potassium Level 3.9 3.5-5.1 mmol/L Chloride Level 107 101-111 mmol/L Carbon Dioxide Level 31 21-32 mmol/L Blood Urea Nitrogen 32 H 7-18 mg/dL Creatinine 0.7 0.5-1.0 mg/dL Glomerular Filtration Rate Calc 83 >90 mL/min Random Glucose 127 H 70-105 mg/dL Total Calcium 8.2 L 8.5-10.1 mg/dL Magnesium Level 1.90 1.80-2.40 mg/dL Total Bilirubin 0.3 0.2-1.0 mg/dL Aspartate Amino Transf (AST/SGOT) 23 10-37 U/L Alanine Aminotransferase (ALT/SGPT) 20 12-78 U/L Alkaline Phosphatase 69 50-136 U/L Total Protein 5.8 L 6.0-8.3 g/dL Albumin 2.3 L 3.5-5.0 g/dL Activated Partial Thromboplast Time 27.7 26.3-35.5 SEC Current Medications Medications (Trade) Dose Ordered Sig/Parker Route PRN Reason Start Time Stop Time Status Last Admin Dose Admin Acetaminophen 100 ml @ 200 mls/hr Q12H PRN IVPB PAIN/ FEVER, 1-5 07/14/24 13:00 08/13/24 12:59 Acetaminophen (acetaMINOPHEN) 1,000 mg Q12H PRN IVPB PAIN/ FEVER, 1-5 07/14/24 12:00 07/14/24 12:47 DC Albuterol (DUOneb) 1 udvial [id number] 07/14/24 12:00 07/14/24 21:49 DC 07/14/24 19:15 1 UDVIAL Budesonide (Pulmicort 0.5 Mg/2ml) 0.5 mg BID 07/14/24 21:00 08/13/24 11:59 07/23/24 06:28 0.5 MG Budesonide (Pulmicort 0.5 Mg/2ml) 0.5 mg Q12H 07/14/24 12:00 07/14/24 12:58 DC Cefepime HCl (MAXipime 2 gm vial) 2 gm Q12H IVPB 07/14/24 12:00 07/22/24 17:17 DC 07/21/24 23:40 2 GM Cefepime HCl (MAXipime 2 gm vial) 2 gm Q24H IVPB 07/22/24 20:00 08/01/24 19:59 07/22/24 20:28 2 GM Doxycycline Hyclate 250 ml @ 125 mls/hr Q12H IV 07/22/24 21:00 07/22/24 23:02 DC Doxycycline Hyclate 250 ml @ 125 mls/hr Q12H IV 07/23/24 00:30 08/02/24 00:29 07/23/24 00:01 125 MLS/HR Doxycycline Hyclate 250 ml @ 125 mls/hr Q12H IV 07/14/24 13:00 07/22/24 17:17 DC 07/22/24 00:40 125 MLS/HR Enoxaparin Sodium (Lovenox) 30 mg DAILY SQ 07/15/24 09:00 08/14/24 08:59 07/23/24 09:41 30 MG Furosemide (LASix 20MG VIAL) 20 mg Q12H IV 07/14/24 12:30 07/18/24 01:00 DC 07/18/24 00:14 20 MG Guaifenesin/ Dextromethorphan (RobiTUSSin DM 200/20MG 10ML) 10 ml Q6H PRN PO COUGH 07/14/24 17:30 08/13/24 17:29 Hydralazine HCl (APRESOLine 20MG INJ) 10 mg Q4H PRN IV ADMINISTER FOR SBP > 160 07/21/24 23:30 08/20/24 23:29 07/21/24 23:40 10 MG Hydralazine HCl ([id number] TAB) 25 mg TID PO 07/22/24 14:00 08/21/24 13:59 07/23/24 09:40 25 MG Insulin Human Regular (humuLIN R 100 UNIT/ML 3ML) INSULIN SLIDING SCAL... ACHS SQ 07/14/24 16:30 08/13/24 16:29 Ipratropium Anna (AtrovENT UD) 0.5 MG [id number] IH 07/15/24 00:00 08/14/24 00:00 07/23/24 12:19 0.5 MG Lactated Ringer's 2,229 ml @ 371.5 mls/ hr Q6H IV 07/17/24 06:00 07/17/24 11:59 DC 07/17/24 05:42 371.5 MLS/HR Lisinopril (Prinivil 10mg) 10 mg DAILY PO 07/15/24 09:00 07/16/24 12:14 DC 07/16/24 08:37 10 MG Lisinopril (Prinivil 40mg) 40 mg DAILY PO 07/17/24 09:00 08/16/24 08:59 07/23/24 09:39 40 MG Magnesium Sulfate 50 ml @ 0 mls/hr PROTOCOL IV 07/14/24 12:00 08/13/24 11:59 07/23/24 09:40 25 MLS/HR Methylprednisolone Sodium Succinate (Solu-medROL 40MG) 20 mg Q12H IVP 07/16/24 12:30 07/19/24 17:27 DC 07/19/24 11:38 20 MG Methylprednisolone Sodium Succinate (Solu-medROL 40MG) 40 mg Q8H IVP 07/14/24 23:00 07/16/24 12:08 DC 07/16/24 08:33 40 MG Methylprednisolone Sodium Succinate (Solu-medROL 40MG) 60 mg Q8H IVP 07/14/24 15:00 07/14/24 21:46 DC 07/14/24 16:09 60 MG Montelukast Sodium (SinguLAIR) 10 mg DAILY PO 07/15/24 09:00 08/14/24 08:59 07/23/24 09:40 10 MG Nifedipine (adALAT 30MG) 30 mg BID PO 07/18/24 13:00 07/19/24 07:11 DC 07/18/24 21:19 30 MG Nifedipine (adALAT 30MG) 60 mg BID PO 07/19/24 09:00 08/18/24 08:59 07/23/24 09:40 60 MG Nystatin (NystOP 15 GM POWDER) apply to abdominal fold ... BID TP 07/16/24 21:00 08/15/24 20:59 07/23/24 09:42 1 APPL Ondansetron HCl (zoFRAN 4MG INJ) 4 mg Q6H PRN IVP NAUSEA/VOMITING 07/14/24 12:00 08/13/24 11:59 Pantoprazole Sodium (PROTonix 40MG INJ) 40 mg Q24H IVP 07/22/24 20:00 08/21/24 19:59 07/22/24 20:28 40 MG Pantoprazole Sodium (PROTonix 40MG INJ) 40 mg Q24H IVP 07/14/24 12:00 07/22/24 17:17 DC 07/21/24 14:15 40 MG Potassium Chloride 100 ml @ 100 mls/hr AD PRN IV POTASSIUM PROTOCOL 07/14/24 12:00 08/13/24 11:59 Potassium Chloride (K-Dur/Klor-Con 20meq) 20 meq AD PRN PO POTASSIUM PROTOCOL 07/14/24 12:00 08/13/24 11:59 Potassium Chloride (KCl 10% Elixir 20meq/15ml) 20 meq AD PRN PO POTASSIUM PROTOCOL 07/14/24 12:00 08/13/24 11:59 Prednisone (deltaSONE/ oraSONE 20MG TAB) 20 mg BID PO 07/19/24 21:00 07/26/24 20:59 07/23/24 09:40 20 MG Thiamine HCl (Vitamin B-1) 100 mg DAILY IVP 07/15/24 09:00 07/18/24 09:00 DC 07/18/24 09:44 100 MG Vancomycin HCl 250 ml @ 125 mls/hr Q24H IV 07/15/24 15:00 07/15/24 10:52 DC Vancomycin HCl (Vancomycin Protocol) 1 each AD IV 07/14/24 12:00 07/15/24 10:54 DC Wound Care/ Dressing Products (Venelex Ointment) 1 APPL BID TP 07/16/24 21:00 08/15/24 20:59 07/23/24 09:42 1 GM DIAGNOSTICS / RADIOLOGY: [ ] ASSESSMENT: Severe acute hypoxemic respiratory failure, POA Acute hypercapnic respiratory failure with respiratory acidosis, POA Acute COPD exacerbation, POA Suspected developing community-acquired pneumonia, POA Rule out diastolic heart failure exacerbation, POA Type 2 NSTEMI, secondary to underlying respiratory failure, POA Hypertension, POA Hyperlipidemia, POA Moderate protein calorie malnutrition, POA Frailty/debility/deconditioning, POA Underlying history of anemia, POA PLAN: Remains admitted to the medical floor Continue prednisone 20 mg p.o. b.i.d. Continue nifedipine 60 mg p.o. b.i.d. Continue lisinopril 40 mg daily Continue broad-spectrum antibiotics with cefepime/doxycycline Sputum growing Pseudomonas Echo showing normal EF 50-55%, stage I diastolic dysfunction Replace electrolytes IV per protocol A.m. labs Disposition: Pending insurance approval for the patient to be discharged to group home facility. GIO RAYMOND MD Jul 23, 2024 13:12
--- NOTE | 2024-07-23 13:46 | HMCIMG ---
CHEST 1VW REASON: PICC placement COMPARISON: 07/23/2024 FINDINGS: Single view of the chest was obtained. Lungs are clear. Heart size is normal. There is no pulmonary vascular congestion. Mediastinum and bony thorax appear unremarkable. There is a left-sided PICC line with tip just entering the superior vena cava. IMPRESSION: 1. PICC line in good position with tip in the superior vena cava.
--- NOTE | 2024-07-23 13:53 | NUR ---
DC PLAN SPOKE TO REP UPDATES SENT TO INSURANCE. PEER TO PEER DONE. PICC LINE PLACED PENDING OK TO USE. Addendum: 07/23/24 at 1357 by KARI SOL RN CM Amended: Links added.
--- NOTE | 2024-07-23 15:15 | NUR ---
PER DR. RAYMOND PATIENT TO BE DISCHARGED TODAY, MED REC DONE AND FAXED TO THE FACILITY. REPORT GIVEN TO RODNEY VIGIL, ALL QUESTIONS ANSWERED. PATIENT WILL BE TRANSPORTED BY FACILITY VAN VIA WHEEL CHAIR.
--- NOTE | 2024-07-23 15:32 | DS ---
Discharge Summary Hospital Course Summary: The patient initially admitted to the hospital July 14, 2024 with the following history of the present illness: 88-year-old female with history of COPD, hypertension, hyperlipidemia, history of paroxysmal atrial fibrillation, prior history of MRSA pneumonia in 2022, obesity, anemia, prior smoker who presented to the ER for further evaluation of progressive shortness of breath with cough, wheezing and poor oral intake. Symptoms have been ongoing for the past one week and has been progressively worsening. Patient has not followed up with PCP. Patient's care provider was present at bedside who states patient has been having fevers and chills at home as well. She has history of swelling in the legs previously but the legs are not as swollen compared to 2-3 months ago. Patient is extremely hard of hearing and appears lethargic on bedside interview. She is currently on BiPAP support for management of respiratory failure. On presentation to the hospital, patient was noted to be hypoxemic with oxygen saturation in the 70s, tachypneic and tachycardic. Chest x-ray showed concerns for developing pneumonia. Labs on presentation significant for WBC count of 8800, hemoglobin of 9.1, platelet count of [id number] with neutrophilia. CMP remarkable for sodium of 135, potassium 4.2, BUN of 21, creatinine of 0.8, BNP of 674, lactic acid of 1.2. Cardiac panel showed troponin of 106. Arterial blood gas showed findings of respiratory acidosis with hypercapnia and hypoxemia. Patient will be admitted to ICU, for management of severe acute hypoxemic and hypercapnic respiratory failure with acute on chronic COPD exacerbation and developing community-acquired pneumonia. We will also obtain 2D echocardiogram to assess LVF and rule out heart failure exacerbation. Consultation with critical Care and Cardiology will be requested Patient's code status was discussed with Mrs. Kim Newberry who is the MPOA for the patient and is the niece and she lives in [place], [place]. She states that patient has previous wishes of do not intubate and she has also requested do not resuscitate. She states that patient previously has expressed that she would not want ventilator support. 07/15 patient seen at bedside, no acute events overnight. She is still remains on BiPAP, saturating at 98%. Hemoglobin decreased from 9.1 down to 8.2, creatinine increased from 0.9 up to 1.1, troponins are downtrending, TSH mildly decreased at 0.23, we will order a free T4, remainder of her labs are relatively unremarkable. Further care per pulmonology recommendations. 07/16 patient seen at bedside, no acute events overnight. She is still requiring BiPAP therapy, still with prominent wheeze on auscultation. She has b een mildly hypertensive, we will increase lisinopril to 40 mg daily. Cultures are no growth to date, continue with nebulizer and systemic steroids. Further recommendations per pulmonology 07/17 patient seen at bedside, no acute events overnight. Yesterday lactic acid began trending up patient was given a bolus with subsequent improvement. Potassium mildly elevated at 5.8 we will continue to monitor. Sputum growing Pseudomonas, she has been hypertensive, lisinopril was increased to 40 mg daily, WBC improved from 20.3 down to 11.5, hemoglobin improved from 8.8 up to 9.9, remainder of her labs are relatively unremarkable. We will follow up with pulmonology recommendations. Patient's IV infiltrated, we will have a midline placed 07/19 patient seen at bedside, no acute events overnight. Lactic acid has improved back to normal today. She remains on BiPAP overnight, was restarted on nasal cannula today and was saturating 98%. Nursing instructed to keep O2 sats around 92%. Patient has not ambulated with physical therapy, we will refer her to senior living for aggressive rehab. Blood pressure was mildly elevated we will start nifedipine 30 mg twice daily. We will follow up with further pulmonology recommendations. 07/20 patient seen at bedside, no acute events overnight. Patient continues requiring low amount of O2 proximally 2 L nasal cannula. When off supplemental oxygen she tends to desaturate. We will try to wean and we will also perform a 6 minute walk today. Pending SNF placement 07/20 patient is seen bedside, no acute events overnight, remains on 2 L via nasal cannula, saturating 98%. Pending SNF placement. Family at bedside, updated. 07/21 patient is seen and examined during my rounding, no acute events overnight, hemodynamically stable, BP 151/80, afebrile, saturating 98% 2 L nasal cannula. Hemoglobin stable at 9.2, WBC within normal range at 9.4. Rest of blood work unremarkable. Pending insurance approval for the patient to be discharged to senior living facility. 07/22/24 patient is seen and examined, no acute events overnight, watching TV at the time of my visit, BP remains mildly elevated, 148/77, saturating 97% on 3 L via nasal cannula. Hemoglobin stable at 9.2. Peer to peer was done yesterday with the insurance MD, per our discussion D need a more updated note from physical therapy (current one in the chart is from 07/17/2024) in order for them to approve admission to senior living facility. PT was reconsulted yesterday, case discussed with case management. 07/23/24 patient is seen and examined, BP 140/55, afebrile, saturating 95% on 2 L nasal cannula. Peer to peer done yesterday with Dr. Parrish over the phone. Patient will be approved one week at senior living facility, we will discuss with case management. Certified Phlebotomy Technician(s): Critical care Assessment/Plan: Final diagnosis Severe acute hypoxemic respiratory failure, POA Acute hypercapnic respiratory failure with respiratory acidosis, POA Acute COPD exacerbation, POA Suspected developing community-acquired pneumonia, POA Rule out diastolic heart failure exacerbation, POA Type 2 NSTEMI, secondary to underlying respiratory failure, POA Hypertension, POA Hyperlipidemia, POA Moderate protein calorie malnutrition, POA Frailty/debility/deconditioning, POA Underlying history of anemia, POA Discharge Instructions: Patient to be discharged to senior living facility for continuation of medical care. Home Medications: Active Scripts Albuterol Sulfate (Ventolin Hfa/Proventil Hfa/Proair Hfa) 90 Mcg Puff, 90 MCG IH Q4HPRN PRN for SHORTNESS OF BREATH/WHEEZING, #2 INHALER Prov:MARCELA BOONE MD 04/09/24 Fluticasone/Salmeterol (Advair 100-50 Diskus) 100 Mcg-50 Mcg/Dose Blst.w.dev, 1 EACH IH BID, #1 DISK 1 Refill Prov:MARCELA BOONE MD 04/09/24 Reported Medications Fe Fumarate/FA/Mv, Min Comb#15 (Hemocyte Plus Capsule) 106 Mg Iron-1 Mg Capsule, 1 CAP PO DAILY for 30 Days, #30 CAP 0 Refills 07/15/24 Potassium Chloride (Potassium Chloride) 20 Meq Packet, 1 PACKET PO DAILY PRN for TO BE TAKEN WITH LASIX for 30 Days, #30 PACKET 0 Refills 07/14/24 Furosemide (Lasix 20Mg Tab) 20 Mg Tablet, 1 TAB PO DAILY PRN for NEEDED FOR SWELLING AND SOB for 30 Days, #30 TAB 0 Refills 07/14/24 Lisinopril (Lisinopril) 10 Mg Tablet, 1 TAB PO DAILY for 30 Days, #30 TAB 0 Refills 07/14/24 Time spent arranging discharge: 31-60 minutes GIO RAYMOND MD Jul 23, 2024 15:32
--- NOTE | 2024-07-23 15:40 | NUR ---
DISCHARGE PICTURE TO WOUND TO BUTTOCK TAKEN PER PROTOCOL.
--- NOTE | 2024-07-23 15:49 | NUR ---
PATIENT ALERT AND ORIENTED, BEING DISCHARGED TO [facility]. JAIRO CLEARY NOTIFIED WELL OF PATIENT TRANSFER. PATIENT BEING TRANSFERRED WITH PICC FOR ANTIBIOTIC TREATMENT. FACILITY TRANSPORTER PICKED UP PATIENT. ALL PATIENT'S BELONGINGS SENT WITH PATIENT TO THE FACILITY.
--- NOTE | 2024-07-23 22:40 | PN ---
[facility] PROGRESS NOTE Date Patient Seen: Jul 23, 2024 Time of Visit: 22:37 Supervising Physician: Dr. Mireya Chávez Primary Care Physician: Mary Aguilera MD Outpatient Specialists: Inpatient Consults: DR ERNESTINE MORA, DR CHAPITO LAUGHLIN PROBLEM LIST: Acute hypercarbic hypoxic respiratory failure on admission Acute COPD exacerbation Community acquired pneumonia Acute on chronic diastolic heart failure Moderate pulmonary hypertension 46 mm/Hg Acute non ST elevation myocardial infarction type 2 secondary to metabolic demand on admission Underlying hyperlipidemia Anemia of chronic disease INTERVAL HISTORY: Patient evaluated at bedside today currently on 2 L nasal cannula. Patient pending home O2 at this time, cleared by pulmonology to be discharged, disposition per primary. REVIEW OF SYSTEMS: 12 point ROS reviewed with patient. Pertinent positives mentioned above. Otherwise negative. PHYSICAL EXAM: GENERAL: alert, weak, awake oriented x 2 HEENT: EOMI, Sclera non icteric, moist mucosa NECK: Supple, no JVD, trachea midline LUNGS: Her lungs show decreased air entry bilaterally at the bases however, no wheezing or rhonchi noted. HEART: Regular rate and rhythm. Normal S1 and S2, without murmurs ABD: Abdomen soft, nontender. Bowel sounds present EXT: No clubbing cyanosis or edema NEURO: Alert and oriented to person, follows commands LABS: Hematology Labs: Test 07/23/24 05:17 Range/Units White Blood Count 9.7 4.8-10.8 K/uL Red Blood Count 3.53 L 4.00-5.50 MIL/uL Hemoglobin 9.0 L 12.0-16.0 g/dL Hematocrit 29.3 L 36-48 % Mean Corpuscular Volume 83.0 79-99 fL Mean Corpuscular Hemoglobin 25.5 L 27.0-33.0 pg Mean Corpuscular Hemoglobin Concent 30.7 L 32.0-36.0 g/dL Red Cell Distribution Width 18.7 H 11.0-15.5 % Platelet Count 252 130-400 K/uL Mean Platelet Volume 11.2 H 7.5-10.5 fL Nucleated Red Blood Cells 0.0 0.0-0.19 % Red Blood Cell Morphology See comments Chemistry Labs: Test 07/23/24 15:42 07/23/24 05:17 Range/Units Whole Blood Glucose 115 H 70-110 MG/DL Sodium Level 144 136-145 mmol/L Potassium Level 3.9 3.5-5.1 mmol/L Chloride Level 107 101-111 mmol/L Carbon Dioxide Level 31 21-32 mmol/L Blood Urea Nitrogen 32 H 7-18 mg/dL Creatinine 0.7 0.5-1.0 mg/dL Glomerular Filtration Rate Calc 83 >90 mL/min Random Glucose 127 H 70-105 mg/dL Total Calcium 8.2 L 8.5-10.1 mg/dL Magnesium Level 1.90 1.80-2.40 mg/dL Total Bilirubin 0.3 0.2-1.0 mg/dL Aspartate Amino Transf (AST/SGOT) 23 10-37 U/L Alanine Aminotransferase (ALT/SGPT) 20 12-78 U/L Alkaline Phosphatase 69 50-136 U/L Total Protein 5.8 L 6.0-8.3 g/dL Albumin 2.3 L 3.5-5.0 g/dL Coagulation Labs: Test 07/23/24 05:17 07/22/24 07:45 Range/Units Prothrombin Time 11.6 9.6-11.6 SEC Prothromb Time International Ratio 1.04 0.85-1.15 D-Dimer Quantitative (PE/DVT) 541 *H 0-500 ng/mL Activated Partial Thromboplast Time 27.7 26.3-35.5 SEC DIAGNOSTICS / RADIOLOGY RESULTS: [ ] PLAN HEMODYNAMICALLY STABLE FROM THE PULMONARY STANDPOINT PATIENT MAY BE DISCHARGED FROM HOSPITAL DISPOSITION PER PRIMARY CONTINUE SUPPLEMENTAL OXYGEN NEURO: Minimize central acting medications as possible. Maintain fall precautions, adequate lighting during the day PULMONARY: Supplemental 02 as needed. Maintain aspiration precautions at all times CARDIOVASCULAR: Follow hemodynamics. Vital signs per facility protocol GI & NUTRITION: Continue with nutritional support. Continue stool softeners and laxatives as needed. KIDNEYS & ELECTROLYTES: Strict monitoring of intake, output and overall fluid balance. Avoid nephrotoxic medications to the extent possible. Medications to be dosed according to renal function. Monitor electrolytes and replace as needed ENDOCRINE: Maintain blood glucose between 100-180 at all times. Hypoglycemia protocol in place INFECTIOUS DISEASE: Trend temperature, WBC and procalcitonin level Follow cultures, deescalate antibiotics as soon as possible. Panculture if new onset fever ONCOLOGY/HEMATOLOGY/COAGULATION: Monitor for s/s of bleeding Monitor hemoglobin, coagulation studies as needed SKIN: Pressure ulcer prevention per facility protocol Specialty mattress ORTHO/REHAB: Continue PT/OT Prophylaxis: Continue GI and DVT prophylaxis Code Status: Full Resuscitation Disposition: as per primary, plan for SNF ATTESTATION BY PHYSICIAN Clinical note was scribed by Dustin Molina medical practice assistant. I can attest to the accuracy and veracity of the note NANETTE MASSEY MD, JUSTIN L PA Jul 23, 2024 22:40
--- NOTE | 2024-07-24 09:32 | NUR ---
TORI CARABALLO [facility] [phone] PATIENT ACCEPTED. NURSE NOTIFIED. WILL GO VIA [facility]. JAYLA ZUÑIGA. Addendum: 07/24/24 at 0938 by KARI SOL RN CM Amended: Links added.
== END 2024-07-23 15:50 | DRG 280 ==
LOC: EDH 09:34 → EDHIP 11:41 → 2AH 17:12 → 4CH 07-20 17:33
PROVIDERS: ADMIT Internal Medicine; ATTEND Internal Medicine
PROC: 5A09357 Assistance with Respiratory Ventilation, Less than 24 Consecutive Hours, Continuous Positive Airway Pressure (ICD-10-PCS; principal; 2024-07-16)
PROC: 5A09357 Assistance with Respiratory Ventilation, Less than 24 Consecutive Hours, Continuous Positive Airway Pressure (ICD-10-PCS; 2024-07-17)
PROC: 05HD33Z Insertion of Infusion Device into Right Cephalic Vein, Percutaneous Approach (ICD-10-PCS; 2024-07-18)
PROC: B54MZZA Ultrasonography of Right Upper Extremity Veins, Guidance (ICD-10-PCS; 2024-07-18)
PROC: 5A09357 Assistance with Respiratory Ventilation, Less than 24 Consecutive Hours, Continuous Positive Airway Pressure (ICD-10-PCS; 2024-07-20)
PROC: 02HV33Z Insertion of Infusion Device into Superior Vena Cava, Percutaneous Approach (ICD-10-PCS; 2024-07-23)
DX: I11.0 Hypertensive heart disease with heart failure (principal); I50.33 Acute on chronic diastolic (congestive) heart failure; I21.A1 Myocardial infarction type 2; J18.9 Pneumonia, unspecified organism; J96.01 Acute respiratory failure with hypoxia; R53.2 Functional quadriplegia; J96.02 Acute respiratory failure with hypercapnia; J44.1 Chronic obstructive pulmonary disease with (acute) exacerbation; J44.0 Chronic obstructive pulmonary disease with (acute) lower respiratory infection; E87.29 Other acidosis; E44.0 Moderate protein-calorie malnutrition; D50.9 Iron deficiency anemia, unspecified; E66.9 Obesity, unspecified; I48.0 Paroxysmal atrial fibrillation; E78.5 Hyperlipidemia, unspecified; R00.0 Tachycardia, unspecified; I27.20 Pulmonary hypertension, unspecified; D63.8 Anemia in other chronic diseases classified elsewhere; R62.7 Adult failure to thrive; Z66 Do not resuscitate; D63.0 Anemia in neoplastic disease; Z82.49 Family history of ischemic heart disease and other diseases of the circulatory system; Z86.14 Personal history of Methicillin resistant Staphylococcus aureus infection; Z87.01 Personal history of pneumonia (recurrent); Z87.891 Personal history of nicotine dependence; I25.2 Old myocardial infarction; Z79.899 Other long term (current) drug therapy; Z68.32 Body mass index [BMI] 32.0-32.9, adult
CPT/HCPCS: 36415; 36556; 36569; 36600; 71045; 80048; 80053; 80076; 81001; 82435; 82550; 82607; 82728; 82746; 82803; 82947; 82948; 83036; 83540; 83550; 83605; 83735; 83880; 83915; 84100; 84132; 84145; 84295; 84439; 84443; 84484; 85018; 85025; 85027; 85045; 85378; 85610; 85651; 85730; 86140; 86738; 87040; 87071; 87086; 87186; 87205; 87449; 87635; 87804; 92610; 93005; 93306; 93971; 94640; 94660; 94664; 96375; 96376; 99291; C1894; G0378; J0360; J0692; J1650; J1940; J2405; J2470; J2919; J3411; J3475; J3490; 3370; C1750; J3370